=== PATIENT | female | born 1940 | race Caucasian/White ===

== ENCOUNTER → 2019-04-21 13:51 | Outpatient (BNVA) | payer MEDICARE, OTHER, SELFPAY | PROVIDERS: Family Provider Nurse Practitioner Family; PCP Nurse Practitioner Family; Visit Provider Nurse Practitioner Family | DX: A09 Infectious gastroenteritis and colitis, unspecified (principal) | CPT/HCPCS: 87505 ==

== ENCOUNTER → 2019-12-16 10:51 | Outpatient (BNVA) | payer MEDICARE, OTHER, SELFPAY | PROVIDERS: Family Provider Nurse Practitioner Family; PCP Nurse Practitioner Family; Visit Provider Specialist | DX: M25.562 Pain in left knee (principal); M25.569 Pain in unspecified knee | CPT/HCPCS: 73560; 73565; 97760; L1812 ==

== ENCOUNTER 2019-12-16 14:35 | Outpatient (CLI) | payer MEDICARE, OTHER, SELFPAY | END 2019-12-16 14:36 | disposition home or self-care (01) | LOC: SPT 14:41 | PROVIDERS: Family Provider Nurse Practitioner Family; PCP Nurse Practitioner Family; Visit Provider Specialist | DX: M25.569 Pain in unspecified knee (principal) | CPT/HCPCS: 97760; L1812 ==

== ENCOUNTER 2019-12-28 08:39 | Outpatient (CLI) | payer MEDICARE, OTHER, SELFPAY ==
--- NOTE | 2019-12-28 08:45 | MR_ITS ---
WS: [id number] MRI LEFT KNEE HISTORY: S83.249A Other tear of medial meniscus, medial knee pain. COMPARISON: None available. Anterior cruciate ligament: Increased signal in the distal ACL. Partial tear suspected. Orientation o f the fibers is normal. Posterior cruciate ligament: Intact. Medial collateral ligament: Increased T2 signal surrounding the MCL. No tear identified. No retractio n of the ligament. Posterior lateral corner structures: Intact. Medial menisci: Mild fraying along the surfaces of the posterior horn and intrasubstance degeneration . No tear identified. Lateral meniscus: Intact. Normal signal, size and shape. Extensor mechanism: Distal quadriceps tendon and patellar tendons are intact. Fluid and soft tissue: Small suprapatellar joint effusion. Small Chacon's cyst measures 3 cm in length . Osseous and articular structures: Patellofemoral compartment: Moderate chondromalacia of the patella. Essentially complete loss of cart ilage over the medial facet. No marrow edema or fracture. Medial compartment: Moderate narrowing of the medial compartment. Marked thinning and loss of the car tilage with numerous fissures. There is a small amount of edema in the medial femoral condyle closest to the MCL. Complete loss of cartilage with underlying subchondral edema involving the medial femora l condyle adjacent to the MCL. Lateral compartment: Mild narrowing of the lateral compartment with thinning and fissuring of the car tilage. No marrow edema. MR/MR knee LT wo con* [id number] IMPRESSION: 1. Mild MCL sprain with a small amount of edema in the adjacent medial femoral condyle. 2. 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 3. Suspect partial tear in the distal ACL. 4. Small Chacon's cyst and small joint effusion.
== END 2019-12-28 08:40 | disposition home or self-care (01) ==
LOC: RADSHAW 08:44
PROVIDERS: PCP Nurse Practitioner Family; Visit Provider Specialist
DX: S83.249A Other tear of medial meniscus, current injury, unspecified knee, initial encounter (principal); S83.412A Sprain of medial collateral ligament of left knee, initial encounter; X58.XXXA Exposure to other specified factors, initial encounter; R60.0 Localized edema; M22.42 Chondromalacia patellae, left knee; M71.22 Synovial cyst of popliteal space [Baker], left knee; M25.462 Effusion, left knee
CPT/HCPCS: 73721

== ENCOUNTER → 2020-02-02 11:45 | Outpatient (BNVA) | payer MEDICARE, OTHER, SELFPAY | PROVIDERS: PCP Nurse Practitioner Family; Visit Provider Internal Medicine Cardiovascular Disease | DX: E78.2 Mixed hyperlipidemia (principal); I25.10 Atherosclerotic heart disease of native coronary artery without angina pectoris; I10 Essential (primary) hypertension; F32.9 Major depressive disorder, single episode, unspecified | CPT/HCPCS: 80053; 80061; 83721; 85025 ==

== ENCOUNTER → 2020-04-22 10:40 | Outpatient (BNVA) | payer MEDICARE, OTHER, SELFPAY | PROVIDERS: PCP Nurse Practitioner Family; Visit Provider Nurse Practitioner Family | DX: Z51.81 Encounter for therapeutic drug level monitoring (principal); E55.9 Vitamin D deficiency, unspecified; J01.90 Acute sinusitis, unspecified | CPT/HCPCS: 80053; 82306; 85007; 85027 ==

== ENCOUNTER → 2020-05-25 11:10 | Outpatient (BNVA) | payer MEDICARE, OTHER, SELFPAY | PROVIDERS: PCP Nurse Practitioner Family; Visit Provider Nurse Practitioner Family | DX: R79.89 Other specified abnormal findings of blood chemistry (principal); R74.8 Abnormal levels of other serum enzymes | CPT/HCPCS: 80076; 85007; 85027 ==

== ENCOUNTER 2020-08-05 07:51 | Outpatient (CLI) | payer MEDICARE, OTHER, SELFPAY ==
[2020-08-05 08:22] VITALS: BMI 32.9
--- NOTE | 2020-08-05 08:22 | ECG_ITS ---
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 Interpretive Statements NAME OF STUDY: LEXISCAN SESTAMIBI STRESS TEST INDICATION: Chest Pain PROCEDURE: At the baseline, the blood pressure was 164/79 mmHg with a heart rate of 66 bpm. The electrocardiogram showed normal sinus rhythm, normal axis with no significant ST-T wave changes. The Lexiscan was infused over a period of 20 seconds. A total of 0.4 milligrams of Lexiscan was infused. The stress phase was continued for a total of 5 minutes. Heart rate at the end of the stress phase was 73 bpm with a blood pressure of 147/69 mmHg. The EKG at the peak infusion revealed sinus rhythm with no significant ST-T wave changes. Isolated PACs noted during infusion. The study was terminated due to protocol completion. Sestamibi was injected 20 seconds after the Lexiscan infusion. Blood pressure at the end of the recovery phase was 152/74 mmHg with a heart rate of 86 beats per minute. CONCLUSION: 1. No significant EKG changes with the LexiScan infusion. 2. No LexiScan induced chest pain or cardiac arrhythmia. 3. Normal blood pressure and heart rate response. 4. Sestamibi/sestamibi perfusion scan pending; see separate report. Electronically Signed On 08-08-2020 17:43:36 CDT by Leah Cleary M.D. [id number]
--- NOTE | 2020-08-05 08:22 | NMCV_ITS ---
NM lisa perf SPECT r/s* [id number] Donya Carpio Age: 79 Gender: F : 1940 Exam Date: 08/05/2020 08:22 Ordering Phys: Leah Cleary MD ([email or web address]) Technologist: LORI Guillen Exam Location: [facility] Indications: CHEST PAIN STRESS TEST Please see separate stress test report in [facility] for full findings IMAGE PROTOCOL Rest/Stress 1 Lexiscan Day Radiopharmaceutical Dose (mCi) Administration Site Administered by Rest: Tc-99m 10.8 IV LORI Whitehead Sestamibi Stress:Tc-99m 32.2 IV LORI Patterson Sestamibi Rest: 05-Aug-2020 60 Discovery 630 Stress: 05-Aug-2020 30 Discovery 630 0.4mg Lexiscan. Images obtained in supine and prone position. SPECT RESULTS Technical Quality: Excellent Raw Data Analysis: Normal Image Corrections: No attenuation or motion correction applied Summed Stress Score: 0 Summed Rest Score: 3 Summed Difference Score: 0 PERFUSION FINDINGS Small size perfusion abnormality of mild severity of mid inferolateral and apical lateral wall on rest images with some improved tracer uptake on stress images. FUNCTIONAL RESULTS (calculated via Gated SPECT) Stress Image LV EF (%): 75 Stress EDV (mL):76 TID: 0.95 Stress ESV (mL):19 FUNCTIONAL FINDINGS: The left ventricle is normal in size. Transient Ischemia Dilatation of 0.95. There is normal left ventricular systolic function. The left ventricular ejection fraction is normal with a value of 75%. There is normal left ventricular wall thickening with no regional wall motion abnormality. Normal end-diastolic and end-systolic volumes. IMPRESSIONS 1. Myocardial perfusion imaging is normal. Attenuation artifact noted in mid to apical inferolateral de anda. 2. Overall left ventricular systolic function is normal without regional wall motion abnormalities. 3. The left ventricular ejection fraction is normal with a value of 75%. 4. No coronary ischemia based on the study. Leah Cleary MD (Electronically Signed) Final Date: 08 Aug 2020 17:41 S
[2020-08-05] MEDS: regadenoson 0.4 Mg/5 ml Syringe IVP (09:50)
[2020-08-05 09:51] VITALS: BP 156/71; PULSE 80
== END 2020-08-05 07:52 | disposition home or self-care (01) ==
LOC: CDL 07:54
PROVIDERS: PCP Nurse Practitioner Family; Visit Provider Internal Medicine Cardiovascular Disease
DX: R07.9 Chest pain, unspecified (principal)
CPT/HCPCS: 78452; 93017; A9500; J2785

== ENCOUNTER 2020-09-09 12:30 | Outpatient (CLI) | payer MEDICARE, OTHER, SELFPAY ==
--- NOTE | 2020-09-09 12:46 | XR_ITS ---
WS: [id number] Chest 2 views, 09/09/2020 Clinical Data: R06.02 - Shortness of breath Comparison: Portable chest, 12/14/2018. Findings: No nodules, masses or effusions are seen. The heart is normal. The pulmonary vascularity is not increased. No pneumonia or pneumothorax is seen. The aortic arch and descending aorta show calci fication and tortuosity. There is a dextroscoliosis of the thoracic spine. XR/XR chest 2V* [id number] Impression: Atherosclerosis.
== END 2020-09-09 12:31 | disposition home or self-care (01) ==
PROVIDERS: PCP Nurse Practitioner Family; Visit Provider Internal Medicine Cardiovascular Disease
DX: R06.02 Shortness of breath (principal); I70.90 Unspecified atherosclerosis
CPT/HCPCS: 71046

== ENCOUNTER 2020-09-26 13:57 | Outpatient (CLI) | payer MEDICARE, OTHER, SELFPAY ==
--- NOTE | 2020-09-26 14:41 | PFTS_ITS ---
Date of Study:09/26/20 Date of Dictation: MECHANICS: Prebronchodilator forced vital capacity (FVC) is normal. . Prebronchodilator forced expiratory volume in one second (FEV1) is normal. . FEV1/FVC is normal. Postbronchodilator study not performed FLOW VOLUME LOOP: normal. LUNG VOLUMES: Total lung capacity (TLC) is mildly reduced. Residual volume (RV) is mildly reduced 66% DIFFUSING CAPACITY FOR CARBON MONOXIDE: Mildly reduced to 61% and normalized after adjustment to ventilation. INTERPRETATION: The Prebronchodilator spirometry is normal. Lung volumes show mild restriction. There is mild gas transfer defect normalized after ventilation adjustment. Correlate clinically. MTDD
== END 2020-09-26 13:58 | disposition home or self-care (01) ==
LOC: RT 13:59
PROVIDERS: PCP Nurse Practitioner Family; Visit Provider Internal Medicine Cardiovascular Disease
DX: J44.9 Chronic obstructive pulmonary disease, unspecified (principal)
CPT/HCPCS: 94010; 94618; 94726; 94729

== ENCOUNTER → 2020-11-08 10:43 | Outpatient (BNVA) | payer MEDICARE, OTHER, SELFPAY | PROVIDERS: PCP Nurse Practitioner Family; Visit Provider Nurse Practitioner Family | DX: Z01.812 Encounter for preprocedural laboratory examination (principal); J44.9 Chronic obstructive pulmonary disease, unspecified; R06.02 Shortness of breath; M25.50 Pain in unspecified joint; Z20.822 Contact with and (suspected) exposure to COVID-19; M25.542 Pain in joints of left hand; M25.541 Pain in joints of right hand | CPT/HCPCS: 80048; 85025; 85610; 86038; 86431; 87635 ==

== ENCOUNTER 2020-11-14 09:07 | Day surgery (SDC) | payer MEDICARE, OTHER, SELFPAY ==
[2020-11-14] VITALS (50 sets, daily range): BP systolic 92–175; BP diastolic 49–99; PULSE 63–77; RESP 13–24; TEMP 36.3–36.7; O2SAT 88–97; BMI 32.1; BMI 32.9
--- NOTE | 2020-11-14 07:30 | XACV_ITS ---
Ht: 157 cm Wt: 80 kg BSA: 1.90 m2 Gender: Female : 1940 Any Known Allergies: Other Exam Priority: Routine Indication(s): - Angina Procedure(s): Procedure Description: Diagnostic procedure Procedure Description: PCI procedure Procedure Description: Drug Eluting Coronary Stent Procedure Description: Coronary Angiography Diagnostic Cath Status: Elective Diagnostic Findings * Left Main has no disease. * Circumflex has no disease. * Right Coronary Artery has no disease. * Proximal Left Anterior Descending to Mid Left Anterior Descending: significant 80% stenosis, SOM: 3 flow. * 1st Diagonal: significant 80% stenosis, SOM: 3 flow. * Coronary angiography shows right dominance. PCI Status: Elective Interventional Findings * Proximal Left Anterior Descending to Mid Left Anterior Descendin% stenosis treated with a AB TREK 2.50X12 RX BALLOON, MDT Jaxson JOSETTE 3.5X15 WESLEY, and MDT TOSHA EUPHORA RX 3.32Y01BR BALLOON. 0% residual stenosis, SOM: 3 flow. * 1st Diagonal: 80% stenosis treated with a AB MINI TREK 2.00X6 RX BALLOON. 20% residual stenosis, SOM: 3 flow. Conclusions 1. There is significant coronary artery disease with one vessel disease. 2. Proximal Left Anterior Descending to Mid Left Anterior Descending was treated with a Balloon, Drug Eluting Stent, and Balloon. 3. 1st Diagonal was treated with a Balloon. Recommendations * Continue current medical management and risk factor modification. Diagnostic RX Recommendation: PCI w/o planned CABG Pressures Phase:Rest AO : 198 / 67 ( 116 ) @ 9:55:00 AM 97 / 57 ( 75 ) @ 10:02:00 AM 115 / 61 ( 85 ) @ 10:03:00 AM Clinical Evaluation EBL: 5mL-10mL Procedural Details Procedure Consent Obtained. Admit Source: Out Patient. Current Diagnosis : Stable angina. Pre-Procedure Time Out. Identified patient by full name and date of as verbalized by the patient/guarantor. Does the consent match the physician's order: Yes. Accurate & Complete Informed Consent: Yes. Inpatient/Outpatient History & Physical on Chart: Yes. If H&P is completed, is and addenduem needed: No; If yes, is the addendum complete: N/A. Visualize and Verify Site with Patient/Guarantor: N/A. Relevant Radiology Images available: N/A. The risks, benefits, and alternatives of sedation and/or procedure were discussed by physician. The patient agrees to continue. Procedure started. [facility] Clinical Fraility Score: 3: Managing Well. 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 Chest Pain Symptom Assessment: Typical Angina Symptoms. Cardiovascular Instability: No. Correct patient, site and procedure confirmed by cath team. Current diagnosis: New Onset Angina. PERRLA. Strong, equal hand hospital coder bilaterally. Lungs clear x 5 lobes. IV Site on Arrival: 20 gauge in the left anticubital. IV Fluids: 0.9% NaCl at KVO. 0 mL infused prior to shellfish processing laborer. Pre Procedural Pulses: bilateral radial was 3+. Pre Procedural Pulses: bilateral posterior tibial was 3+. Pre Procedural Pulses: bilateral dorsalis pedis was 3+. Oxygen started at 3liters/min via nasal canula. right radial was prepped with chloroprep then draped in the usual sterile fashion. right groin was prepped with chloroprep then draped in the usual sterile fashion. Physician notified. Baseline sample Acquired. HR: 70 BPM. Physician arrived. Physician scrubbed in. Equipment: 5F - Femoral. Equipment: 6F - Femoral. Equipment: 5F - Radial. Equipment: 6F - Radial. Heparinized Saline (2 units/mL), 1000 mL bag. Cardiac Cath Pack. ACIST Manifold Kit Model BT 2000. Immediate Pre-Procedure Time Out. Correct Patient: Yes; Correct Procedure: Yes; Correct Site: Yes; Correct Patient Position: Yes; Correct Supplies: Yes; Dried Flammable Prep: Yes; Blood Products Available: N/A;. Lidocaine 1% infiltrated to the right radial. Arterial access obtained. A Terumo 5 Fr Aquiles Radial Catheter, 110cm was advanced over the wire and used for right coronary angiography. RCA cannulated. Multiple views taken of right coronary artery. Catheter removed over the exchange wire. A TR 5FR Radial TIG 4.0 110cm was advanced over the wire and used for Left coronary angiography. LCS cannulated. Multiple views taken of left coronary artery. Physicain review of films. Inventory is CRD 6FR XB 3 GUIDE. IVNENTORY: Milan wire, Copilot, Endoflator. Catheter removed over the wire. Starting Intervention. 6 russian XB 3 guide catheter was inserted over the wire. Milan guidewire was advanced through the guide catheter to lesion in the prox LAD. Milan wire advanced across the lesion. Angiography performed. Milan guidewire #2 was advanced through the guide catheter to the diaganol as protection for stenting. Heparinized Saline (2 units/mL), 1000 mL bag. Inflation number : 1 A AB TREK 2.50X12 RX BALLOON was prepped and advanced across the Prox LAD , then inflated to 20 HAMLET for 0:14 seconds. Balloon out. Inflation Number : 2 A ELMER Puri JOSETTE 3.5X15 WESLEY -Lot Number# [id number] was prepped and advanced across the Prox LAD. The stent was deployed at 14 HAMLET for 0:23 seconds. Exp: 04-05-2022. Angiography performed. Stent balloon out over wire. Diagonal wire removed. Angiography performed. Inflation number : 3 A ELMER GIVENS EUPHORA RX [id number] BALLOON was prepped and advanced across the Prox LAD , then inflated to 16 HAMLET for 0:13 seconds. Balloon out. Milan wire pulled back from LAD and advanced throught the stent struts and down the Diagonal. Inflation number : 1 A AB MINI TREK 2.00X6 RX BALLOON was prepped and advanced across the 1st Diag , then inflated to 16 HAMLET for 0:13 seconds. Inflation number: 2 The AB MINI TREK 2.00X6 RX BALLOON was reinflated across the 1st Diag, to 16 HAMLET for 0:07 seconds. Angiography performed. Balloon out. Wire out. Angiography performed. Physician review of films. Physician scrubbed out. A TR Band was successful obtaining hemostatsis at the Right Radial artery insertion site. TR band placed. Hemostasis obtained. Post Procedure: Pulses reassessed and unchanged. PERRLA. Strong, equal hand hospital coder bilaterally. No VTE prophylaxis required. Medication's Wasted: Lidocaine 1% = 18 ml. Medication's Wasted: Nitro = 49.8 mg. Medication's Wasted: Heparin = 3000 units. Total IV fluids: 45.1 mL. Fluoro: 13:00. Contrast type used: Omnipaque 300 mgI/mL, 500 mL bottle. Omnipaque 249 ml. PCI Indication: New Onset Angina. Post-op diagnosis: Obstuctive CAD; Single Vessel LAD severe stenosis. Complications: None. Estimated blood loss: 5mL-10mL. Procedure completed. Patient transferred by bed to 1st floor. Access Site Site: Right Radial artery Sheath Size: 5 Fr Hemostasis Method: TR Band Hemostasis Success: Successful Procedure Medications Start: 10:43 AM Stop: 10:43 AM Medication: Versed Amount: 1 mg Route: I.V. Start: 10:43 AM Stop: 10:43 AM Medication: Fentanyl Amount: 50 mcg Route: I.V. Start: 10:44 AM Stop: 10:44 AM Medication: Versed Amount: 1 mg Route: I.V. Start: 10:45 AM Stop: 10:45 AM Medication: Nitrogylcerin Amount: 200 mcg Route: I.A. Start: 10:46 AM Stop: 10:46 AM Medication: Heparin Amount: 5000 units Route: I.V. Start: 10:53 AM Stop: 10:53 AM Medication: Heparin Amount: 3000 units Route: I.V. Start: 10:55 AM Stop: 10:55 AM Medication: Versed Amount: 1 mg Route: I.V. Start: 10:55 AM Stop: 10:55 AM Medication: Fentanyl Amount: 25 mcg Route: I.V. Start: 11:13 AM Stop: 11:13 AM Medication: Versed Amount: 1 mg Route: I.V. Start: 11:13 AM Stop: 11:13 AM Medication: Fentanyl Amount: 25 mcg Route: I.V. I, the attending physician, have reviewed and verified all procedure medications. Yes, all medications given per verbal order History/Risk Factors Hypertension: Yes Dyslipidemia: Yes Peripheral Arterial Disease (PAD): No Myocardial Infarction (AZ): No Obesity: No Renal Disease: No Tobacco Use: Never Prior Interventions PCI: Yes CABG: No Valve Surgery: No Date of PCI: 11/13/2018 Report Signatures Finalized by Rober Hernandez MD on 11/24/2020 07:54 PM
[2020-11-14] MEDS: diphenhydrAMINE 50 mg Capsule PO (10:14)
--- NOTE | 2020-11-14 10:27 | P.HP_ITS ---
Same Day Surgery H&P Indication for Procedure/HPI DATE OF PROCEDURE: November 14, 2020 CHIEF COMPLAINT/INDICATIONFOR SURGICAL PROCEDURE: Worsening of chest pain along with shortness of breath despite of optimization of medicine. PREOP DIAGNOSIS: Worsening of angina despite of optimization of medicine PLANNED PROCEDRUE: Operation Date: 11/14/20 08:30 Proposed Procedures p Cardiac Catheterization 24371 R07.89(Left) - Rober Hernandez MD 80-year-old female past medical history significant drug-eluting stent to RCA in 2019 who has been following up with her primary business development manager Dr. Cleary, for the last few months patient has been struggling with shortness of breath and chest pain upon exertion despite of optimization of medicine. Stress test was performed which did not show significant ischemia therefore left heart cath was deferred since patient continues to worse and because of the fact pulmonary test did not show significant etiology Dr. Rodriguez suggested that left heart cath/PCI if indicated may need to be performed. I have detailed discussion with the patient and the family by bedside I have explained them all risk benefit and alternative for the procedure. She understood that there is a 2% risk of major complications such as stroke major bleed CABG vascular injury and 6% of minor complication like hematoma bruising infection pseudoaneurysm. They would like to proceed with it. Medications/Allergies* Home Medications Medication Instructions Recorded Confirmed Type aspirin 81 mg tablet,delayed 81 mg PO DAILY tab 04/06/19 11/14/20 History release albuterol sulfate 1 inh INHALATION QID PRN 11/14/20 11/14/20 History Allergies/Adverse Reactions Allergy/AdvReac Type Severity Reaction Status Date / Time atorvastatin [From Lipitor] Allergy pain Verified 11/08/20 10:57 Penicillins Allergy hives Verified 11/08/20 10:57 Sulfa (Sulfonamide Allergy rash Verified 11/08/20 10:57 Antibiotics) Current Medications: Generic Name Dose Route Start Last Admin Trade Name Freq PRN Reason Stop Dose Admin Sodium Chloride 1,000 mls @ 50 mls/hr 11/14/20 07:30 11/14/20 10:14 Sodium Chloride 0.9% IV 11/15/20 03:29 Not Given .Q20H ONE Pertinent History/Comorbid Conditions* Medical History (Updated 07/24/20 @ 06:42 by Leah Cleary MD) CAD (coronary artery disease) COPD (chronic obstructive pulmonary disease) Depression Hyperlipidemia Hypertension Mucopurulent chronic bronchitis Surgical History (Updated 04/06/19 @ 10:58 by SIVAKUMAR Anderson) H/O hysterectomy with oophorectomy History of appendectomy History of hip replacement left Stented coronary artery 11/17 Social History Smoking and tobacco status: never smoked Second hand smoke exposure: Yes Pertinent Exam Findings alert, oriented x 3 and clear to auscultation bilaterally Conscious Sedation Assessment AIRWAY EVAL/ANESTHESIA PLAN: ASA II and Risks, benefits & alternatives of sedation and/or procedure discussed Recommendations Surgery/Procedure today Coding Level of Care Code Acute 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
--- NOTE | 2020-11-14 11:59 | PC.NURSE ---
Admit Note Patient admitted to [CSU] from [pathology lab technician] via [wheel chair]. Covering service notified. Patient presents with [TR band]. Orders reviewed & will continue to monitor. Patient and/or sales representative girls' apparel oriented to environment, equipment, and informed of the following as found in the admission booklet: patient rights & responsibilities, visitor policy, hand and respiratory hygiene practice. Other education includes: [TR band and its removal]. Patient and/or sales representative girls' apparel [receptive to teaching].
[2020-11-14] MEDS: citalopram 20 mg Tablet PO (14:24)
[2020-11-14] MEDS: pantoprazole DR 40 mg Tablet PO (18:37)
[2020-11-14] MEDS: gemfibrozil 600 mg Tablet PO (18:37)
--- NOTE | 2020-11-14 20:40 | PC.NURSE ---
TR band removed from right wrist at 2029. Dressing placed. No oozing or hematoma noted. Radial pulse present. VSS. Skin color and temperature WNL. Patient educated on post-cath activity restrictions and care and verbalized understanding.
[2020-11-15] VITALS (8 sets, daily range): BP systolic 133–161; BP diastolic 70–107; PULSE 70–75; RESP 12–23; TEMP 36.6–37.4; O2SAT 92–94
--- NOTE | 2020-11-15 05:39 | PC.NURSE ---
Shift Note Frequent safety and comfort rounds continue. Orders and/or nursing care completed as indicated. Patient monitored for response to intervention and treatment(s). Education provided includes post-cath care and restrictions. Patient and/or administrative representative verbalized understanding. Will continue to monitor.
--- NOTE | 2020-11-15 05:42 | PC.NURSE ---
Patient removed from 2 L NC and placed on room air. Patient's oxygen saturation is currently 90 percent. Patient has continuous pulse ox monitor on. Will continue to monitor.
[2020-11-15] MEDS: gemfibrozil 600 mg Tablet PO (09:07)
[2020-11-15] MEDS: aspirin 81 mg EC Tablet PO (09:07)
[2020-11-15] MEDS: clopidogrel 75 mg Tablet PO (09:07)
[2020-11-15] MEDS: citalopram 20 mg Tablet PO (09:08)
[2020-11-15] MEDS: amlodipine 5 mg Tablet 2.5 MG PO (09:08)
[2020-11-15] MEDS: pantoprazole DR 40 mg Tablet PO (09:08)
--- NOTE | 2020-11-15 09:32 | PC.CHAP ---
Pastoral Care Encounter/Spiritual Assessment Type of Contact [] Declined financial services sales representative visit [] Patient/Family/Request visit [] Outpatient visit [] Follow-up visit [] Physician referral [] Code/Alert [x] Routine visit [] Staff referral [] Actively dying [] Patient sleeping [] Family support [] [] Out of room [] Palliative care [] [] Receiving care in room [] Pre-surgical visit [] Trauma [] Long length of stay [] ICU visit [] Other: Relational/Emotional Strength [] Patient feels connected with others/family/visitors/staff [] Distress [] Loneliness/isolation [] Abandonment Spirituality of Patient [x] Person of Teri [] Attends Catholic of their Teri [] Believes in Prayer [] Reads Bible or Confucianist materials [] There are Spiritual issues to be addressed Health Service Worker Interventions [x] Prayer [x] Active listening [x] Non-anxious presence [x] Spiritual/emotional support [] Crisis/trauma care [] Spiritual counseling [] Bereavement support [] Provided bereavement packet [] Provided Bible/devotional materials [] Provided toy/stuffed animal, coloring book to patient or family member [] Provided Communion [] Anointing/Crescent [] Salvation [x] Completed spiritual assessment [] Other: Impact on Illness or Injury [] Angry [] Fearful [] Anxious [] Often cries [] Exhaustion [] Unable to work [] Unable to attend jain [] Unable to walk/stand [] Unable to read [] Unable to drive [] Unable to eat/drink [] Unable to sleep [] Unable to be with family [] Patient intubated [] Other: Summary patient is so happy with improvement... hoping to go home very soon Time spent with patient 10 min
--- NOTE | 2020-11-15 10:34 | PM.DCS ---
Discharge Providers Date of Discharge: November 15, 2020 Attending Provider at Discharge: Rober Hernandez MD Primary Care Provider: SIVAKUMAR Holloway Reason for Visit Reason for Visit: [facility] Hospital Course Hospital Course 80-year-old female past medical history significant for hypertension hyperlipidemia coronary artery disease status post stent to RCA in 2017 for worsening of shortness of breath and anginal-like symptoms underwent left heart cath she was noted to have significant proximal to mid LAD more than 80% stenosis. It was treated with balloon angioplasty followed by drug-eluting stent. Jailed diagonal was also ballooned through the stent struts. Excellent angiographic result with SOM-3 flow was achieved. Patient post PCI course was uncomplicated. She was observed overnight. Vitals remained stable. Labs this morning are within normal limits. She is feeling much better denies any complaint. Right wrist wound looks good. She will be discharged home. She is instructed to follow-up with Ms. Margareth Escobar cardiology nurse practitioner in [address] 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 Physical Exam Narrative: EXAM NARRATIVE: GENERAL: Patient is alert, awake and oriented x3. NECK: No jugular vein distension. HEENT: No cyanosis. No icterus. No pallor. HEART: Regular S1 and S2. No murmur, rub or gallop. LUNGS: Clear to auscultate bilaterally. ABDOMEN: Soft, nontender and nondistended. Positive bowel sounds. No guarding, rebound or tenderness. CENTRAL NERVOUS SYSTEM: Grossly nonfocal. EXTREMITIES: Lower extremities without edema bilaterally. Right wrist wound healing nicely. 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 Routin e Exams 11/14/20 07:30 Taken Vitals: Last Vital Signs Temp 98.2 F 11/15/20 07:42 Pulse 73 11/15/20 07:42 Resp 16 11/15/20 07:42 BP 133/73 11/15/20 07:42 Pulse Ox 93 11/15/20 07:42 Discharge Plan Discharge Patient Disposition: Home Condition: Stable Prescriptions: Continued aspirin [Adult Low Dose Aspirin] 81 mg tablet,delayed release (DR/EC) 81 mg PO QAM RF: 0 (DME) HINGED KNEE BRACE See Rx Instructions .Route .MEDSUPPLY Qty: 1 RF: 0 isosorbide mononitrate 60 mg tablet extended release 24 hr 30 mg PO BID Qty: 90 RF: 2 nitroglycerin 0.4 mg tablet, sublingual 0.4 mg SUBLINGUAL Q5M PRN (Reason: chest pain) Qty: 30 RF: 3 gemfibrozil 600 mg tablet 600 mg PO BID Qty: 180 RF: 1 albuterol sulfate 90 mcg/actuation HFA aerosol inhaler 1 inh inhalation QID PRN (Reason: Shortness Of Breath) RF: 0 amlodipine 2.5 mg tablet 2.5 mg PO QAM RF: 0 clopidogrel 75 mg tablet 75 mg PO QAM RF: 0 citalopram 20 mg tablet 20 mg PO QAM RF: 0 Vitamin C 500 mg Tablet 500 mg PO QAM RF: 0 pantoprazole 40 mg tablet,delayed release (DR/EC) 40 mg PO BID RF: 0 hydrochlorothiazide 25 mg tablet 25 mg PO QAM RF: 0 cholecalciferol (vitamin D3) 25 mcg (1,000 unit) capsule 1,000 unit PO QAM RF: 0 Discharge Orders: Discharge Order (Routine); Ordered 11/15/20 Ordered By: Rober Hernandez Referrals: Margareth Escobar FNP [Nurse Practitioner] - 1 week (Please follow-up Margareth Escobar on at 10:45A.M. If you have any questions or need to reschedule. Please call ) Leah Cleary MD [Physician] - 6 Weeks (Please follow-up with Dr. Cleary on January 13 at 11:30A.M. If you have any questions or need to reschedule. Please call ) Discharge Diet: Cardiac Discharge Activity: Increase activity as tolerated Patient Instructions: Left Heart Catheterization (DC), Coronary Angioplasty (DC), Post Angiogram Home Care Instructions Activity Restrictions/Additional Instructions: Follow-up with Margareth Escobar cardiology nurse practitioner in 7 days, follow-up with Dr. Cleary in 4 to 6 weeks. Discharge Attestations Time Spent in Discharge Care*: less than 30 min Specific Discharge Activities: educating patient Quality Metrics Clinical Quality Measures During this hospital stay, did patient experience: None Coding Level of Care Code Established Pt Acute Chg FW DC note Patient Type Established History Detailed Exam Detailed Medical Decision Making Moderate Complexity
[2020-11-15] MEDS: acetaminophen 325 mg Tablet 650 MG PO (16:35)
--- NOTE | 2020-11-15 16:53 | PC.NURSE ---
Discharge Note Patient discharged to home via private vehicle accompanied by Daughter. Discharge instructions reviewed with patient and/or employee representative. Mobile pharmacy medications and/or prescriptions provided. Belongings/home medications returned.
== END 2020-11-15 16:55 | disposition home or self-care (01) ==
LOC: CCL 09:13 → CSU 11-15 09:51
PROVIDERS: PCP Nurse Practitioner Family; Visit Provider Internal Medicine Cardiovascular Disease
DX: I25.10 Atherosclerotic heart disease of native coronary artery without angina pectoris (principal); R07.89 Other chest pain; Z95.5 Presence of coronary angioplasty implant and graft; J44.9 Chronic obstructive pulmonary disease, unspecified; F32.9 Major depressive disorder, single episode, unspecified; E78.5 Hyperlipidemia, unspecified; I10 Essential (primary) hypertension
CPT/HCPCS: 36415; 93454; C1725; C1769; C1874; C1887; C1894; C9600; J1644; J2250; J3010; J3490; J7030; Q0163; Q9967

== ENCOUNTER → 2020-11-22 11:35 | Outpatient (BNVA) | payer MEDICARE, OTHER, SELFPAY | PROVIDERS: PCP Nurse Practitioner Family; Visit Provider Nurse Practitioner Family | DX: Z09 Encounter for follow-up examination after completed treatment for conditions other than malignant neoplasm (principal); I25.10 Atherosclerotic heart disease of native coronary artery without angina pectoris | CPT/HCPCS: 80048 ==

== ENCOUNTER → 2020-12-01 10:28 | Outpatient (BNVA) | payer MEDICARE, OTHER, SELFPAY | PROVIDERS: PCP Nurse Practitioner Family; Visit Provider Nurse Practitioner Family | DX: L29.9 Pruritus, unspecified (principal); I25.10 Atherosclerotic heart disease of native coronary artery without angina pectoris; J44.9 Chronic obstructive pulmonary disease, unspecified | CPT/HCPCS: 80076 ==

== ENCOUNTER 2021-01-15 16:51 | Observation (INO) | payer MEDICARE, OTHER, SELFPAY ==
[2021-01-15] VITALS (9 sets, daily range): BP systolic 129–184; BP diastolic 63–118; PULSE 60–117; RESP 14–21; TEMP 36.7–36.8; O2SAT 92–98; BMI 32.3
--- NOTE | 2021-01-15 18:13 | XRR_ITS ---
PROCEDURE INFORMATION: Exam: XR Chest Exam date and time: 01/15/2021 6:13 PM Age: 80 years old Clinical indication: Pain; Chest pressure; Additional info: Cp TECHNIQUE: Imaging protocol: XR of the chest. Views: 1 view. Total images: 1 COMPARISON: CR XR chest 2V* [id number] 09/09/2020 1:08 PM FINDINGS: Lungs: No visible active interstitial or alveolar airspace disease. Pleural spaces: No pleural effusion. No pneumothorax. Heart/Mediastinum: Cardiac structures and configuration with arteriosclerosis. Tortuous thoracic aorta which can be seen in hypertensive cardiovascular disease. Bones/joints: Mild scoliotic curvature. Advanced primary osteoarthritis of the shoulders. Other findings: Obesity. XR/XR chest 1V portable [id number] IMPRESSION: Nonacute. Radiation Dose CTDIVOL = (mGy): DLP = (mGy-cm)
--- NOTE | 2021-01-15 18:13 | ECG_ITS ---
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 Measurements Intervals [place] Rate: 61 P: 50 [place]: 157 QRS: 11 QRSD: 85 T: 45 QT: 454 QTc: 461 Interpretive Statements SINUS RHYTHM WITH OCCASIONAL SUPRAVENTRICULAR PREMATURE COMPLEXES LOW QRS VOLTAGE IN PRECORDIAL LEADS [QRS DEFLECTION < 1.0 mV IN CHEST LEADS] POSSIBLE ANTERIOR MYOCARDIAL INFARCTION , PROBABLY OLD [30 ms Q WAVE IN V3/V4, OR R < 0.2 mV IN V4] No previous ECG available for comparison Electronically Signed On 01-15-2021 20:58:43 CDT by Leah Cleary M.D. [id number]
--- NOTE | 2021-01-15 18:13 | CTR_ITS ---
PROCEDURE INFORMATION: Exam: CT Head Without Contrast Exam date and time: 01/15/2021 6:13 PM Age: 80 years old Clinical indication: Visual disturbance; Patient HX: C/O blurred vision and weakness; Additional info: CVA TECHNIQUE: Imaging protocol: Computed tomography of the head without contrast. Total images: 184 Radiation optimization: All CT scans at this facility use at least one of these dose optimization techniques: automated exposure control; mA and/or kV adjustment per patient size (includes targeted exams where dose is matched to clinical indication); or iterative reconstruction. COMPARISON: CR XR knees AP WB w LT lmt ORTH 12/16/2019 10:56 AM RADIATION DOSE METRICS: Total DLP (mGy-cm): 720.15 FINDINGS: Brain: No evidence of active or acute intracranial pathologic process, hemorrhage, or trauma. Mild small vessel ischemic disease with senile periventricular leukomalacia. No hyperdense MCA or insular ribbon sign. Cerebral arteriosclerosis. No mass effect. No midline shift. Atrophic changes not inconsistent with the patient's chronological age. Cerebral ventricles: No ventriculomegaly. Paranasal sinuses: Tiny air-fluid level sphenoid sinus. No other evidence of active paranasal sinus disease. Mastoid air cells: Visualized mastoid air cells are well aerated. Bones/joints: Unremarkable. No acute fracture. Soft tissues: Unremarkable. CT/CT head wo con* [id number] IMPRESSION: 1. No evidence of active or acute intracranial pathologic process, hemorrhage, or trauma. 2. Tiny air-fluid level sphenoid sinus. No other evidence of active paranasal sinus disease. Radiation Dose CTDIVOL = (mGy): DLP = 720.15 (mGy-cm)
--- NOTE | 2021-01-15 18:36 | W.ED.GENADLT ---
Documented by User: Emmanuel Griffin MD 01/15/21 21:45 HPI - General Adult General: Chief complaint: Eye Problems Stated complaint: BLURRY VISION AND CANT WALK Time Seen by Provider: 01/15/21 17:56 Source: patient Mode of arrival: ambulatory Limitations: no limitations History of Present Illness: HPI narrative: 80-year-old female states that starting earlier this morning around 8 or 9 she had woke up with blurry vision. States that initially was quite blurry and has improved but still having some blurry vision. She states the vision is blurry in bilateral eyes. States she is also had some ataxia and difficulty walking. No focal weakness. No slurred speech. Associated symptoms: Deny chest pain, dyspnea, nausea, rash or vomiting Review of Systems Const: Denies: fever(s), chills, body aches or change in appetite Eyes: Reports: change in vision and blurry vision ENMT: Denies: throat pain or dental pain Card: Denies: chest pain Resp: Denies: dyspnea GI: Denies: abdominal pain, nausea, vomiting or diarrhea : Denies: dysuria Musc: Denies: neck pain or back pain Skin/Breast: Denies: rash Neuro: Reports: difficulty walking Psych: Denies: depression Ed/Lymph: Denies: easy bruising All/Imm: Denies: urticaria PFSH ED PFSH: Medical History CAD (coronary artery disease) COPD (chronic obstructive pulmonary disease) Depression Hyperlipidemia Hypertension Mucopurulent chronic bronchitis Primary osteoarthritis of left knee Surgical History H/O hysterectomy with oophorectomy History of appendectomy History of hip replacement left Stented coronary artery 11/17 Social History Smoking and tobacco status: never smoked Second hand smoke exposure: Yes Physical Exam Const: COMMON NORMALS: no acute distress, patient oriented x3 and healthy appearing HENMT: COMMON NORMALS: normocephalic and atraumatic HEAD & SCALP: normocephalic and atraumatic Eye: COMMON NORMALS: Equal, round and reactive pupils present and EOMs intact bilaterally PUPIL: Yes Equal, round and reactive pupils present Neck/C-Spine: COMMON NORMALS: full ROM and supple Chest: COMMONS NORMALS: normal inspection of the chest and normal palpation of entire chest wall Resp: COMMON NORMALS: normal respiratory effort, No retractions, No use of accessory muscles and clear to auscultation bilaterally AUSCULTATION: clear to auscultation bilaterally Cardio: COMMON NORMALS: regular rate, regular rhythm and No murmurs present (Cardio) RATE: regular rate RHYTHM: regular rhythm GI: COMMON NORMALS: Normal to inspection, nondistended, normoactive bowel sounds present, Soft to palpation, non-tender and no masses PALPATION: Yes Soft to palpation Extremity: COMMON NORMALS: normal to inspection and full ROM Neuro: COMMON NORMALS: patient oriented x3, moves all extremities and no focal motor deficits Psych: COMMON NORMALS: mental status grossly normal, Normal thought process present and cooperative THOUGHT PROCESS: Normal thought process present Skin: COMMON NORMALS: no rashes or lesions noted and no wounds GENERAL SKIN EXAM: no rashes or lesions noted Course Vital Signs: Vital signs: Vital Signs Temperature 98.2 F 01/15/21 17:52 Pulse Rate 66 01/15/21 21:33 Respiratory Rate 20 H 01/15/21 21:33 Blood Pressure 184/118 01/15/21 21:33 Pulse Oximetry 92 01/15/21 21:33 MDM - General Adult MDM Narrative: Medical decision making narrative: Patient presents here with possible CVA. She does have some blurred vision and ataxia. Symptoms started this morning she is a TPA candidate. She has a normal head CT here. Spoke to hospitalist will admit for observation. Lab Data: Labs: Lab Results 01/15/21 01/15/21 01/15/21 18:29 18:29 18:29 WBC 5.9 10^3/uL 10^3/ uL (4.0-10.0) RBC 4.10 10^6/uL 10^6 /uL (4.1-5.3) Hgb 12.1 g/dL g/dL (11.5-15.3) Hct 37.9 % % (37.0-47.0) MCV 92.4 fl fl (81-99) MCH 29.5 pg pg (28.0-34.0) MCHC 31.9 g/dL g/dL (30.0-36.0) RDW 14.3 % % (12.1-15.1) Plt Count 355 10^3/cmm 10^3 /cmm (130-400) MPV 11.1 fL H fL (7.4-10.4) Neut % (Auto) 49.1 % % Lymph % (Auto) 36.0 % % [place] % (Auto) 9.3 % % Eos % (Auto) 4.6 % % Baso % (Auto) 0.5 % % Neut # (Auto) 2.89 10^3/uL 10^3 /uL (1.8-7.7) Lymph # (Auto) 2.1 10^3/uL 10^3/ uL (0.8-4.8) [place] # (Auto) 0.6 10^3/uL 10^3/ uL (0.2-0.9) Eos # (Auto) 0.3 10^3/uL 10^3/ uL (0.0-0.8) Baso # (Auto) 0.0 10^3/uL 10^3/ uL (0.0-0.1) Nucleated RBC % (a uto) 0 % % Nucleated RBCs # 0.0 /100WBC /100W BC PT 13.70 SECONDS SEC ONDS (12.1-14.9) INR 1.01 (0.8-1.2) Sodium Cancelled Potassium Cancelled Chloride Cancelled Carbon Dioxide Cancelled Anion Gap Cancelled BUN Cancelled Creatinine Cancelled GFR Calculation Cancelled Glucose Cancelled Calculated Osmolal ity Cancelled Calcium Cancelled Total Bilirubin Cancelled AST Cancelled ALT Cancelled Alkaline Phosphata se Cancelled Troponin T Baselin e Total Protein Cancelled Albumin Cancelled Globulin Cancelled Urine Color Urine Appearance Urine pH Ur Specific Gravit y Urine Protein Urine Glucose (UA) Urine Ketones Urine Blood Urine Nitrate Urine Bilirubin Urine Urobilinogen Ur Leukocyte Shu ase 01/15/21 01/15/21 01/15/21 18:29 19:25 20:10 WBC RBC Hgb Hct MCV MCH MCHC RDW Plt Count MPV Neut % (Auto) Lymph % (Auto) [place] % (Auto) Eos % (Auto) Baso % (Auto) Neut # (Auto) Lymph # (Auto) [place] # (Auto) Eos # (Auto) Baso # (Auto) Nucleated RBC % (a uto) Nucleated RBCs # PT INR Sodium 138 mmol/L mmol/L (136-145) Potassium 3.6 mmol/L mmol/L (3.5-5.1) Chloride 100 mmol/L mmol/L (98-107) Carbon Dioxide 24 mmol/L mmol/L (22-29) Anion Gap 17.6 (5-19) BUN 28 mg/dL H mg/dL (8-23) Creatinine 1.0 mg/dL H mg/dL (0.5-0.9) GFR Calculation Not Reportable Glucose 97 mg/dL mg/dL (65-115) Calculated Osmolal ity 291 mOsm/kg mOsm/ kg (285-295) Calcium 10.2 mg/dL mg/dL (8.5-10.5) Total Bilirubin 0.2 mg/dL mg/dL (0.15-1.2) AST 26 U/L U/L (0-32) ALT 15 U/L U/L (0-33) Alkaline Phosphata se 98 IU/L IU/L (35-105) Troponin T Baselin e 12 ng/L H ng/L (0-10) Total Protein 7.8 g/dL g/dL (6.6-8.7) Albumin 4.3 g/dL g/dL (3.5-5.2) Globulin 3.5 g/dL g/dL (1.3-4.6) Urine Color Yellow (Yellow) Urine Appearance Clear (CLEAR) Urine pH 6 (5-7) Ur Specific Gravit y 1.010 (1.005-1.030) Urine Protein Neg (Negative) Urine Glucose (UA) Norm (Normal) Urine Ketones Negative (Negative) Urine Blood Neg (Negative) Urine Nitrate Negative (Negative) Urine Bilirubin Neg (Negative) Urine Urobilinogen Norm mg/dL mg/dL (Negative) Ur Leukocyte Shu ase Negative (Negative) Imaging Data^: CT Head: Attestation: I personally reviewed and interpreted this imaging study as follows: Radiologist's impression: [address] [address] [address] Scan Report Signed Patient: Donya Carpio Unit #: [id number] : 1940 Age/Sex: 80 / F ADM Date: 01/15/21 Loc: ER Room/Bed: Attending Dr: Ordering Provider/Ordering MD: Emmanuel Griffin MD Date of Service: 01/15/21 Procedure(s): CT head wo con* [id number] Accession Number(s): [id number] Report Number: [id number] PROCEDURE INFORMATION: Exam: CT Head Without Contrast Exam date and time: 01/15/2021 6:13 PM Age: 80 years old Clinical indication: Visual disturbance; Patient HX: C/O blurred vision and weakness; Additional info: CVA TECHNIQUE: Imaging protocol: Computed tomography of the head without contrast. Total images: 184 Radiation optimization: All CT scans at this facility use at least one of these dose optimization techniques: automated exposure control; mA and/or kV adjustment per patient size (includes targeted exams where dose is matched to clinical indication); or iterative reconstruction. COMPARISON: CR XR knees AP WB w LT lmt ORTH 12/16/2019 10:56 AM RADIATION DOSE METRICS: Total DLP (mGy-cm): 720.15 FINDINGS: Brain: No evidence of active or acute intracranial pathologic process, hemorrhage, or trauma. Mild small vessel ischemic disease with senile periventricular leukomalacia. No hyperdense MCA or insular ribbon sign. Cerebral arteriosclerosis. No mass effect. No midline shift. Atrophic changes not inconsistent with the patient's chronological age. Cerebral ventricles: No ventriculomegaly. Paranasal sinuses: Tiny air-fluid level sphenoid sinus. No other evidence of active paranasal sinus disease. Mastoid air cells: Visualized mastoid air cells are well aerated. Bones/joints: Unremarkable. No acute fracture. Soft tissues: Unremarkable. CT/CT head wo con* [id number] IMPRESSION: 1. No evidence of active or acute intracranial pathologic process, hemorrhage, or trauma. 2. Tiny air-fluid level sphenoid sinus. No other evidence of active paranasal sinus disease. Radiation Dose CTDIVOL = (mGy): DLP = 720.15 (mGy-cm) Dictated By: Chi Veronica Signed By: Chi Veronica Signed Date/Time: 01/15/212006 DD/ 12 CXR: Attestation: I personally reviewed and interpreted this imaging study as follows: Radiologist's impression: [facility] [place] [address] XRay Report Signed Patient: Donya Carpio Unit #: [id number] : 1940 Age/Sex: 80 / F ADM Date: 01/15/21 Loc: ER Room/Bed: Attending Dr: Ordering Provider/Ordering MD: Emmanuel Griffin MD Date of Service: 01/15/21 Procedure(s): XR chest 1V portable [id number] Accession Number(s): [id number] Report Number: [id number] PROCEDURE INFORMATION: Exam: XR Chest Exam date and time: 01/15/2021 6:13 PM Age: 80 years old Clinical indication: Pain; Chest pressure; Additional info: Cp TECHNIQUE: Imaging protocol: XR of the chest. Views: 1 view. Total images: 1 COMPARISON: CR XR chest 2V* [id number] 09/09/2020 1:08 PM FINDINGS: Lungs: No visible active interstitial or alveolar airspace disease. Pleural spaces: No pleural effusion. No pneumothorax. Heart/Mediastinum: Cardiac structures and configuration with arteriosclerosis. Tortuous thoracic aorta which can be seen in hypertensive cardiovascular disease. Bones/joints: Mild scoliotic curvature. Advanced primary osteoarthritis of the shoulders. Other findings: Obesity. XR/XR chest 1V portable [id number] IMPRESSION: Nonacute. Radiation Dose CTDIVOL = (mGy): DLP = (mGy-cm) Dictated By: Chi Veronica Signed By: Chi Veronica Signed Date/Time: 01/15/212007 EKG Data^: EKG 1: Attestation: I personally reviewed and interpreted this EKG as follows: EKG interpretation date: 01/15/21 EKG interpretation time: 18:33 Interpretation: nsr hr [address] or t wave abnormalities qrs 85 qtc 458 Computer generated interpretation: Chest X-Ray 01/15/21 18:13 IMPRESSION: Nonacute. Radiation Dose CTDIVOL = (mGy): DLP = (mGy-cm) Head CT 01/15/21 18:13 IMPRESSION: 1. No evidence of active or acute intracranial pathologic process, hemorrhage, or trauma. 2. Tiny air-fluid level sphenoid sinus. No other evidence of active paranasal sinus disease. Radiation Dose CTDIVOL = (mGy): DLP = 720.15 (mGy-cm) EKG 2: Attestation: I personally reviewed and interpreted this EKG as follows: EKG interpretation date: 01/15/21 EKG interpretation time: 20:12 Interpretation: nsr hr [address] or t wave abnormalities qrs 83 qtc 429 Computer generated interpretation: Chest X-Ray 01/15/21 18:13 IMPRESSION: Nonacute. Radiation Dose CTDIVOL = (mGy): DLP = (mGy-cm) Head CT 01/15/21 18:13 IMPRESSION: 1. No evidence of active or acute intracranial pathologic process, hemorrhage, or trauma. 2. Tiny air-fluid level sphenoid sinus. No other evidence of active paranasal sinus disease. 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 Field Specialist for Chg Fwd Exam Comprehensive NIH stroke score NIHSS Level Of Consciousness - 1a: 0 Level Of Consciousness Questions - 1b: Both Correct Level Of Consciousness Commands - 1c: Both Correct Best Gaze - 2: Normal Visual Weeks - 3: No Visual Loss Facial Palsy - 4: Normal Motor Arm Right - 5: No Drift Motor Arm Left - 5: No Drift Motor Leg Right - 6: No Drift Motor Leg Left - 6: No Drift Limb Ataxia - 7: Absent Sensory - 8: Normal Best Language - 9: No Aphasia Dysarthia - 10: Normal Extinction And Inattention - 11: 0 Score Total Score: 0 Documented by User: Jay Tovra MD 01/15/21 21:10 HPI - General Adult General: Chief complaint: Eye Problems Stated complaint: BLURRY VISION AND CANT WALK Time Seen by Provider: 01/15/21 17:56 PFSH ED PFSH: Medical History CAD (coronary artery disease) COPD (chronic obstructive pulmonary disease) Depression Hyperlipidemia Hypertension Mucopurulent chronic bronchitis Primary osteoarthritis of left knee Surgical History H/O hysterectomy with oophorectomy History of appendectomy History of hip replacement left Stented coronary artery 11/17 Social History Smoking and tobacco status: never smoked Second hand smoke exposure: Yes Course Vital Signs: Vital signs: Vital Signs Temperature 98.2 F 01/15/21 17:52 Pulse Rate 66 01/15/21 21:33 Respiratory Rate 20 H 01/15/21 21:33 Blood Pressure 184/118 01/15/21 21:33 Pulse Oximetry 92 01/15/21 21:33 MDM - General Adult Lab Data: Labs: Lab Results 01/15/21 01/15/21 01/15/21 18:29 18:29 18:29 WBC 5.9 10^3/uL 10^3/ uL (4.0-10.0) RBC 4.10 10^6/uL 10^6 /uL (4.1-5.3) Hgb 12.1 g/dL g/dL (11.5-15.3) Hct 37.9 % % (37.0-47.0) MCV 92.4 fl fl (81-99) MCH 29.5 pg pg (28.0-34.0) MCHC 31.9 g/dL g/dL (30.0-36.0) RDW 14.3 % % (12.1-15.1) Plt Count 355 10^3/cmm 10^3 /cmm (130-400) MPV 11.1 fL H fL (7.4-10.4) Neut % (Auto) 49.1 % % Lymph % (Auto) 36.0 % % [place] % (Auto) 9.3 % % Eos % (Auto) 4.6 % % Baso % (Auto) 0.5 % % Neut # (Auto) 2.89 10^3/uL 10^3 /uL (1.8-7.7) Lymph # (Auto) 2.1 10^3/uL 10^3/ uL (0.8-4.8) [place] # (Auto) 0.6 10^3/uL 10^3/ uL (0.2-0.9) Eos # (Auto) 0.3 10^3/uL 10^3/ uL (0.0-0.8) Baso # (Auto) 0.0 10^3/uL 10^3/ uL (0.0-0.1) Nucleated RBC % (a uto) 0 % % Nucleated RBCs # 0.0 /100WBC /100W BC PT 13.70 SECONDS SEC ONDS (12.1-14.9) INR 1.01 (0.8-1.2) Sodium Cancelled Potassium Cancelled Chloride Cancelled Carbon Dioxide Cancelled Anion Gap Cancelled BUN Cancelled Creatinine Cancelled GFR Calculation Cancelled Glucose Cancelled Calculated Osmolal ity Cancelled Calcium Cancelled Total Bilirubin Cancelled AST Cancelled ALT Cancelled Alkaline Phosphata se Cancelled Troponin T Baselin e Total Protein Cancelled Albumin Cancelled Globulin Cancelled Urine Color Urine Appearance Urine pH Ur Specific Gravit y Urine Protein Urine Glucose (UA) Urine Ketones Urine Blood Urine Nitrate Urine Bilirubin Urine Urobilinogen Ur Leukocyte Shu ase 01/15/21 01/15/21 01/15/21 18:29 19:25 20:10 WBC RBC Hgb Hct MCV MCH MCHC RDW Plt Count MPV Neut % (Auto) Lymph % (Auto) [place] % (Auto) Eos % (Auto) Baso % (Auto) Neut # (Auto) Lymph # (Auto) [place] # (Auto) Eos # (Auto) Baso # (Auto) Nucleated RBC % (a uto) Nucleated RBCs # PT INR Sodium 138 mmol/L mmol/L (136-145) Potassium 3.6 mmol/L mmol/L (3.5-5.1) Chloride 100 mmol/L mmol/L (98-107) Carbon Dioxide 24 mmol/L mmol/L (22-29) Anion Gap 17.6 (5-19) BUN 28 mg/dL H mg/dL (8-23) Creatinine 1.0 mg/dL H mg/dL (0.5-0.9) GFR Calculation Not Reportable Glucose 97 mg/dL mg/dL (65-115) Calculated Osmolal ity 291 mOsm/kg mOsm/ kg (285-295) Calcium 10.2 mg/dL mg/dL (8.5-10.5) Total Bilirubin 0.2 mg/dL mg/dL (0.15-1.2) AST 26 U/L U/L (0-32) ALT 15 U/L U/L (0-33) Alkaline Phosphata se 98 IU/L IU/L (35-105) Troponin T Baselin e 12 ng/L H ng/L (0-10) Total Protein 7.8 g/dL g/dL (6.6-8.7) Albumin 4.3 g/dL g/dL (3.5-5.2) Globulin 3.5 g/dL g/dL (1.3-4.6) Urine Color Yellow (Yellow) Urine Appearance Clear (CLEAR) Urine pH 6 (5-7) Ur Specific Gravit y 1.010 (1.005-1.030) Urine Protein Neg (Negative) Urine Glucose (UA) Norm (Normal) Urine Ketones Negative (Negative) Urine Blood Neg (Negative) Urine Nitrate Negative (Negative) Urine Bilirubin Neg (Negative) Urine Urobilinogen Norm mg/dL mg/dL (Negative) Ur Leukocyte Shu ase Negative (Negative) EKG Data^: EKG 1: Computer generated interpretation: Chest X-Ray 01/15/21 18:13 IMPRESSION: Nonacute. Radiation Dose CTDIVOL = (mGy): DLP = (mGy-cm) Head CT 01/15/21 18:13 IMPRESSION: 1. No evidence of active or acute intracranial pathologic process, hemorrhage, or trauma. 2. Tiny air-fluid level sphenoid sinus. No other evidence of active paranasal sinus disease. Radiation Dose CTDIVOL = (mGy): DLP = 720.15 (mGy-cm) EKG 2: Computer generated interpretation: Chest X-Ray 01/15/21 18:13 IMPRESSION: Nonacute. Radiation Dose CTDIVOL = (mGy): DLP = (mGy-cm) Head CT 01/15/21 18:13
[2021-01-15 18:45] LABS: Basophils % 0.5 %; Eosinophils # 0.3 10^3/uL (0.0-0.8); Eosinophils % 4.6 %; Hematocrit 37.9 % (37.0-47.0); Hemoglobin 12.1 g/dL (11.5-15.3); Lymphocytes # 2.1 10^3/uL (0.8-4.8); Mean Corpuscular HGB Conc 31.9 g/dL (30.0-36.0); Mean Corpuscular Hemoglobin 29.5 pg (28.0-34.0); Mean Corpuscular Volume 92.4 fl (81-99); Mean Platelet Volume 11.1 fL (7.4-10.4); Monocytes # 0.6 10^3/uL (0.2-0.9); Monocytes % 9.3 %; Neutrophils # 2.89 10^3/uL (1.8-7.7); Neutrophils % 49.1 %; Nucleated Red Blood Cells % 0 %; Platelet Count 355 10^3/cmm (130-400); Red Cell Distribution Width 14.3 % (12.1-15.1); White Blood Count 5.9 10^3/uL (4.0-10.0)
[2021-01-15 18:51] LABS: INR 1.01 (0.8-1.2)
[2021-01-15 19:03] LABS: Troponin(5th) Baseline 12 ng/L (0-10)
--- NOTE | 2021-01-15 19:07 | PC.NURSE ---
Cardiac monitoring entries not accurate. Would not let nurse exit without entering values.
--- NOTE | 2021-01-15 20:13 | ECG_ITS ---
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 Measurements Intervals [place] Rate: 61 P: 14 OR: 160 QRS: 15 QRSD: 83 T: 44 QT: 427 QTc: 431 Interpretive Statements SINUS RHYTHM LOW QRS VOLTAGE IN PRECORDIAL LEADS [QRS DEFLECTION < 1.0 mV IN CHEST LEADS] Compared to ECG 01/15/2021 18:33:09 Myocardial infarct finding no longer present Electronically Signed On 01-15-2021 21:10:46 CDT by Leah Cleary M.D. [id number]
[2021-01-15 20:18] LABS: Add Urine Microscopic? NO; Charge for UA Resulting for Rev
[2021-01-15 20:31] LABS: Bilirubin Urine Neg (Negative); Blood Urine Neg (Negative); Glucose Urine UA Norm (Normal); Ketones Urine Negative (Negative); Leukocyte Esterase Urine Negative (Negative); Nitrate Urine Negative (Negative); Protein Urine Neg (Negative); Urine Appearance Clear (CLEAR); Urine Color Yellow (Yellow); Urobilinogen Urine Norm (Negative); pH Urine 6 (5-7)
[2021-01-15 20:45] LABS: Alanine Aminotransferase 15 U/L (0-33); Albumin Level 4.3 g/dL (3.5-5.2); Alkaline Phosphatase 98 IU/L (35-105); Anion Gap 17.6 (5-19); Aspartate Amino Transferase 26 U/L (0-32); Blood Urea Nitrogen 28 mg/dL (8-23); Calcium 10.2 mg/dL (8.5-10.5); Carbon Dioxide 24 mmol/L (22-29); Chloride 100 mmol/L (98-107); Globulin 3.5 g/dL (1.3-4.6); Glucose 97 mg/dL (65-115); Osmolality Calculated 291 mOsm/kg (285-295); Potassium 3.6 mmol/L (3.5-5.1); Sodium 138 mmol/L (136-145); Total Bilirubin 0.2 mg/dL (0.15-1.2); Total Protein 7.8 g/dL (6.6-8.7)
--- NOTE | 2021-01-15 21:11 | PC.NURSE ---
Pt. states that he will have to take his grandson home after she is admitted , but he will be staying the night with her. states that if he does not , then the patient may elope.
--- NOTE | 2021-01-15 22:41 | P.HP_ITS ---
Providers/Chief Complaint Admitting Physician: Jay Tovar Primary Care Provider: SIVAKUMAR Holloway Chief Complaint: BLURRY VISION AND CANT WALK History of Present Illness 80-year-old with a past medical history significant for anxiety, depression, hypertension, depression, arthritis, coronary artery disease with recent stent placement, statin intolerance was presented to the hospital with acute onset of blurry vision. Patient stated this started around 9:00 a.m. it was noted in both visual sterling. Attempted to ambulate and felt unsteady as if she was ?Drunk?.Symptoms gradually improved throughout the day. No unilateral weakness. Denies any numbness or tingling. No prior history of stroke.Laboratory workup however showed a WBC of 5.9, hemoglobin 12.1, hematocrit of 37.9 and a platelet count of 355. INR 1.01. Sodium 138, potassium 3.6, chloride 100, bicarb 24, BUN 28 and creatinine 1.0. Troponin T baseline of 12, with a repeat of 13.94. UA negative.Chest x-ray did not show any acute cardiopulmonary.CT head without contrast did not show any evidence of acute intracranial abnormality. Review of Systems General: Reports: 10 or more systems reviewed and unremarkable except in HPI and below Medications/Allergies Home Medications Medication Instructions Recorded Confirmed Last Taken Type aspirin 81 mg tablet,delayed 81 mg PO QAM tab 04/06/19 01/15/21 01/15/21 08:30 History release 80 HINGED KNEE BRACE #1 ea NS 12/16/19 12/01/20 Unknown Rx isosorbide mononitrate 60 mg 30 mg PO BID #90 tab 07/22/20 01/15/21 01/15/21 08:30 Rx tablet,extended release 24 hr 30 nitroglycerin 0.4 mg sublingual 0.4 mg SUBLINGUAL Q5M PRN #30 tab 07/22/20 01/15/21 Unknown Rx tablet gemfibrozil 600 mg tablet 600 mg PO BID #180 tab 08/30/20 01/15/21 01/15/21 08:30 Rx 600 albuterol sulfate 1 inh INHALATION QID PRN 11/14/20 01/15/21 Unknown History ascorbic acid (vitamin C) [Vitamin 500 mg PO QAM 11/15/20 01/15/21 01/15/21 08:30 History C] 500 cholecalciferol (vitamin D3) 1,000 unit PO QAM 11/15/20 01/15/21 Unknown History pantoprazole 40 mg tablet,delayed See Rx Instructions .ROUTE 11/28/20 01/15/21 01/15/21 08:30 Rx release .COMPLEX #180 tablet 40 citalopram 20 mg tablet 20 mg PO QAM #90 tab 12/07/20 01/15/21 01/15/21 08:30 Rx 20 amlodipine 2.5 mg tablet 2.5 mg PO QAM #90 tab 12/26/20 01/15/21 01/15/21 08:30 Rx 2.5 clopidogrel 75 mg tablet See Rx Instructions .ROUTE 12/26/20 01/15/21 01/15/21 08:30 Rx .COMPLEX #90 tablet 75 hydrochlorothiazide 25 mg tablet See Rx Instructions .ROUTE 12/26/20 01/15/21 01/15/21 08:30 Rx .COMPLEX #90 tablet 25 cephalexin 500 mg PO TID 7 Days #21 cap 01/15/21 Unknown Rx Allergies Allergy/AdvReac Type Severity Reaction Status Date / Time atorvastatin [From Lipitor] Allergy pain Verified 01/13/21 11:53 Penicillins Allergy hives Verified 01/13/21 11:53 Sulfa (Sulfonamide Allergy rash Verified 01/13/21 11:53 Antibiotics) PFSH Acute PFSH: Medical History (Updated 01/16/21 @ 01:11 by Jay Tovar MD) CAD (coronary artery disease) COPD (chronic obstructive pulmonary disease) Depression Hyperlipidemia Hypertension Mucopurulent chronic bronchitis Primary osteoarthritis of left knee Surgical History H/O hysterectomy with oophorectomy History of appendectomy History of hip replacement left Stented coronary artery 11/17 Social History Smoking and tobacco status: never smoked Second hand smoke exposure: Yes Vitals/I&O/Wt Last Vital Signs Temp 98.0 F 01/15/21 23:25 Pulse 60 01/15/21 23:25 Resp 17 01/15/21 23:25 BP 129/69 01/15/21 23:25 Pulse Ox 93 01/15/21 23:25 Weight last 48 hrs Weight 80.286 kg Physical Exam Narrative: EXAM NARRATIVE: General-alert awake oriented x3 no apparent distress HEENT- grossly unremarkable new line CVS- regular rate rhythm Chest- clear to auscultation, nonlabored respiration Abdomen-soft nontender nondistended Extremities -no edema Neurological - CN 2- 12 intact, motor strength 5/5 Data : 01/15/21 18:29 01/15/21 20:10 A&P Assessment and plan (1) Unsteady gait: Status: Acute (2) CAD (coronary artery disease): Status: Acute Qualifiers: Coronary Disease-Associated Artery/Lesion type: [place] artery [place] vs. transplanted heart: [place] heart Associated angina: without angina Qualified Code(s): I25.10 - Atherosclerotic heart disease of [place] coronary artery without angina pectoris Additional A&P Information TIA r/o CVA Blurry vision with unsteady gait. Symptoms resolved at time of arrival Resume aspirin 81 mg PO daily Continue plavix 75 mg PO daily Statin intolerance Neuro-checks ECHO MR Head w/o contrast in am Carotid US NPO until bedside swallow Cardiac diet if no aspiration risk Monitor on telemetry ST/PT/OT consult Coronary artery disease s/p hx of PCI/stent Aspirin/plavix ECHO ordered Hypertension Holding antihypertensive due to possible María Can resume 24 post symptoms ( AM ) COPD Stable Duoneb q6hr PRN DVT ppx Lovenox 40 mg SQ daily ( start tomorrow) Attestations Medical Necessity Statement*: Anticipate Less than 2 midnight stay in hospital Time Spent in Patient Care: Greater than 35 minutes (>than 50% of time spent in counselling and/or direct pt care on unit) . Coding Level of Care Code Acute [place] Guide for [place] Fwd Diagnoses Unsteady gait R26.81 CAD (coronary artery disease) I25.10 Coronary Disease-Associated Artery/Lesion type: [place] artery [place] vs. transplanted heart: [place] heart Associated angina: without angina
[2021-01-15 23:04] LABS: Troponin 5 2HR 13.94 ng/L (0-10); Troponin 5 2HR Delta 1.94 ABS# (0-10)
--- NOTE | 2021-01-16 00:13 | ECG_ITS ---
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 Measurements Intervals [place] Rate: 63 P: -9 KS: 158 QRS: 0 QRSD: 102 T: 35 QT: 452 QTc: 463 Interpretive Statements SINUS RHYTHM POSSIBLE ANTERIOR MYOCARDIAL INFARCTION , PROBABLY OLD [30 ms Q WAVE IN V3/V4, OR R < 0.2 mV IN V4] Compared to ECG 01/15/2021 20:12:38 Myocardial infarct finding now present Electronically Signed On 01-16-2021 19:26:37 CDT by Leah Cleary M.D. [id number]
--- NOTE | 2021-01-16 01:05 | USCV_ITS ---
LauritaJilDonya Urena Age: 80 Gender: F : 1940 Exam Date: 01/16/2021 06:36 Ordering Phys: Jay Tovar MD Technologist: [place] [facility] [place]: Risk Factors: None Previous Vascular Surgery: None Right Brachial BP: / Left Brachial BP: / Right Left Velocity (cm/s) Spectral Plaque Velocity (cm/s) Spectral Plaque Syst/Diast Broadening Syst/Diast Broadening 55.00/ 12.00 Prox CCA 62.50 / 12.40 61.70/ 13.20 Mid CCA 68.30 / 16.00 57.50/ 28.25 Distal CCA 67.60 / 18.90 50.30/ 13.40 Prox ICA 54.50 / 13.10 56.50/ 20.10 Mid ICA 58.10 / 14.50 60.15/ 16.50 Distal ICA 53.10 / 16.70 59.80 ECA 48.00 0.97 ICA/CCA 0.85 Antegrade Vertebral Antegrade 59.30/ 14.00 cm/s 38.50/ 10.90 cm/s Tri Subclavian Tri 85.00 101.0 0 CONCLUSIONS Right ICA stenosis <50%. Left ICA stenosis <50%. Normal antegrade Doppler flow noted in the right vertebral artery. Normal antegrade Doppler flow noted in the left vertebral artery. Fran Chambers MD (Electronically Signed) Final Date: 16 January 2021 15:54 S
[2021-01-16 03:28] VITALS: BP 118/68; PULSE 60; RESP 16; TEMP 36.7; O2SAT 94
[2021-01-16 04:16] LABS: Troponin 5 6HR 13.86 ng/L (0-10); Troponin 5 6HR Delta 1.86 ng/L (0-12)
[2021-01-16 04:26] LABS: Chol HDL Ratio 4.93 mg/dL (0.0-4.40); Cholesterol 202 mg/dL (0-200); HDL Cholesterol 41 mg/dL (60-100); LDL Cholesterol Calculated 145 mg/dL (50-129); LDL HDL Ratio 3.54 RATIO (0.00-3.22); Triglycerides 80 mg/dL (0-150)
--- NOTE | 2021-01-16 06:00 | USCV_ITS ---
Donya Carpio Age: 80 Gender: F : 1940 Exam Date: 01/16/2021 06:21 Ordering Phys: Jay Tovar MD Technologist: [place] [facility] [place] TIA BP: 118 / 68 HR: 64 Rhythm: Sinus Technical Quality: Fair MEASUREMENTS (Male / Female) Normal Values 2D ECHO LV Diastolic Diameter PLAX 4.4 cm 4.2 - 5.9 / 3.9 - 5.3 cm LV Systolic Diameter PLAX 3.2 cm IVS Diastolic Thickness 1.2 cm 0.6 - 1.0 / 0.6 - 0.9 cm IVS Systolic Thickness 1.3 cm LVPW Diastolic Thickness 1.1 cm 0.6 - 1.0 / 0.6 - 0.9 cm LVPW Systolic Thickness 1.3 cm LVOT Diameter 2.0 cm LV Ejection Fraction 2D Teich 52.3 % LV Ejection Fraction MOD 2C 63.7 % LV Ejection Fraction 2C AL 65.6 % LA Diameter 2.8 cm LA Width 3.8 cm LA Height 4.8 cm RA Width 3.8 cm RA Height 4.3 cm Aorta at Sinotubular Diameter 2.9 cm DOPPLER AV Peak Velocity 157.0 cm/s LVOT Peak Velocity 101.0 cm/s AV Area Cont Eq vti 2.4 cm squared AV Area Cont Eq pk 2.1 cm squared MV Area PHT 5.0 cm squared Mitral E to A Ratio 1.0 MV E' Velocity 56.0 cm/s Mitral E to MV E' Ratio 10.4 Mitral E to LV E' Lateral Ratio 10.1 Mitral E to LV E' Septal Ratio 10.9 TR Peak Velocity 142.3 cm/s TR Peak Gradient 8.1 mmHg TV Peak E Velocity 72.0 cm/s Right Atrial Pressure 3.0 mmHg Pulmonary Artery Systolic Pressu 11.1 mmHg FINDINGS Left Ventricle Normal left ventricular cavity size. Normal left ventricular systolic function. No regional wall motion abnormalities. Left ventricular ejection fraction is estimated at 55 %. Grade II/IV diastolic dysfunction, moderately elevated filling pressures. Right Ventricle The right ventricle is normal in size and function. Right Atrium The right atrium is normal in size. Left Atrium Mildly increased left atrial size. Mitral Valve Moderately thickened mitral valve. Moderate mitral annular calcification. No mitral valve stenosis. Mild mitral valve regurgitation. Aortic Valve Structurally normal aortic valve without significant sclerosis or stenosis. There is no aortic regurgitation. Tricuspid Valve Mild tricuspid valve regurgitation. Pulmonic Valve Structurally normal pulmonic valve without significant stenosis. There is no pulmonic regurgitation. Pericardium Normal pericardium without effusion. Aorta Normal ascending aorta dimension. CONCLUSIONS 1-Normal left ventricular cavity size. Normal left ventricular systolic function. No regional wall motion abnormalities. Left ventricular ejection fraction is estimated at 55 %. Grade II/IV diastolic dysfunction, moderately elevated filling pressures. 2-Moderately thickened mitral valve. Moderate mitral annular calcification. No mitral valve stenosis. Mild mitral valve regurgitation. 3-Structurally normal aortic valve without significant sclerosis or stenosis. There is no aortic regurgitation. 4-Mild tricuspid valve regurgitation. 6-There is no pericardial effusion. 7-Pulmonary artery systolic pressure is within normal limits. 8-Right atrial pressure is around 5 mm of mercury. 9-No significant change since the prior echocardiogram study of 09/24/2018 Rober Hernandez MD (Electronically Signed) Final Date: 16 January 2021 20:10 S
[2021-01-16 07:53] VITALS: BP 151/78; PULSE 65; RESP 16; TEMP 36.4; O2SAT 94
[2021-01-16 08:23] VITALS: PULSE 64; RESP 18; O2SAT 93
--- NOTE | 2021-01-16 08:54 | PC.PHAR ---
pt states she takes care of her own medications-pt verified medications
--- NOTE | 2021-01-16 09:42 | PC.CHAP ---
Pastoral Care Encounter/Spiritual Assessment Type of Contact [] Declined banquet captain visit [] Patient/Family/Request visit [] Outpatient visit [] Follow-up visit [] Physician referral [] Code/Alert [x] Routine visit [] Staff referral [] Actively dying [x] Patient sleeping [] Family support [] [] Out of room [] Palliative care [] [] Receiving care in room [] Pre-surgical visit [] Trauma [] Long length of stay [] ICU visit [] Other: Relational/Emotional Strength [] Patient feels connected with others/family/visitors/staff [] Distress [] Loneliness/isolation [] Abandonment Spirituality of Patient [] Person of Teri [] Attends Muslim of their Teri [] Believes in Prayer [] Reads Bible or Bahai materials [] There are Spiritual issues to be addressed Fundraising Sale Representative Interventions [] Prayer [] Active listening [] Non-anxious presence [] Spiritual/emotional support [] Crisis/trauma care [] Spiritual counseling [] Bereavement support [] Provided bereavement packet [] Provided Bible/devotional materials [] Provided toy/stuffed animal, coloring book to patient or family member [] Provided Communion [] Anointing/[place] [] Salvation [] Completed spiritual assessment [] Other: Impact on Illness or Injury [] Angry [] Fearful [] Anxious [] Often cries [] Exhaustion [] Unable to work [] Unable to attend buddhism [] Unable to walk/stand [] Unable to read [] Unable to drive [] Unable to eat/drink [] Unable to sleep [] Unable to be with family [] Patient intubated [] Other: Summary Time spent with patient
[2021-01-16] MEDS: aspirin 81 mg EC Tablet PO (10:33)
--- NOTE | 2021-01-16 11:19 | PC.NUTR ---
Nutrition consult per Dr. Tovar for stroke dx. Provided nutrition education on heart healthy diet, completing approx 75% before pt needing to leave for MRI. Verbalized understanding. Left materials with pt and niece, and provided RD phone extension. Encouraged pt to discuss unexplained wt loss with MD, as she states appetite/intake has not changed significantly. Recommend consideration of Cardiac diet. See full RD assessment for further details.
[2021-01-16 12:00] VITALS: BP 140/80; PULSE 70; RESP 16; TEMP 36.6; O2SAT 95
--- NOTE | 2021-01-16 13:22 | P.DS_ITS ---
Discharge Providers Date of Admission: 01/15/21 21:42 Date of Discharge: January 16, 2021 Attending Provider at Admission: Jay Tovar Attending Provider at Discharge: Rober Angeles MD Primary Care Provider: SIVAKUMAR Holloway Diagnoses at Discharge Discharge Diagnosis (1) Unsteady gait: Status: Acute (2) CAD (coronary artery disease): Status: Acute Qualifiers: Associated angina: without angina Coronary Disease-Associated Artery/Lesion type: [place] artery [place] vs. transplanted heart: [place] heart Qualified Code(s): I25.10 - Atherosclerotic heart disease of [place] coronary artery without angina pectoris Reason for Visit Reason for Visit: BLURRY VISION AND CANT WALK Hospital Course Hospital Course HPI done by Dr. Tovar 80-year-old with a past medical history significant for anxiety, depression, hypertension, depression, arthritis, coronary artery disease with recent stent placement, statin intolerance was presented to the hospital with acute onset of blurry vision. Patient stated this started around 9:00 a.m. it was noted in both visual sterling. Attempted to ambulate and felt unsteady as if she was ?Drunk?.Symptoms gradually improved throughout the day. No unilateral weakness. Denies any numbness or tingling. No prior history of stroke.Laboratory workup however showed a WBC of 5.9, hemoglobin 12.1, hematocrit of 37.9 and a platelet count of 355. INR 1.01. Sodium 138, potassium 3.6, chloride 100, bicarb 24, BUN 28 and creatinine 1.0. Troponin T baseline of 12, with a repeat of 13.94. UA negative.Chest x-ray did not show any acute cardiopulmonary.CT head without contrast did not show any evidence of acute intracranial abnormality. Hospital course Patient was admitted for evaluation of TIA. Her symptoms resolved by the time she was seen in the ER. CT head unremarkable. MRI head was unremarkable as well. NIH 0 at the time of my evaluation. Patient was able to swallow without any difficulty, she had good strength of upper and lower extremities, she was deemed stable to be discharged home after PT evaluation. She will be discharged home on aspirin, Plavix and gemfribzole. Carotid Doppler unremarkable. Echo report is pending. Physical Exam Narrative: EXAM NARRATIVE: NIH 0 S1-S2 No carotid bruit No murmur appreciated Abdomen soft Saturating well on room air EOMI, PERRLA No neurological focal deficit noted Discharge Data Data Completed and Pending: Completed Studies During Hospitalization Category Date Time Status CT head wo con* [id number] Urgent Cat Scan 01/15/21 18:13 Completed XR chest 1V yamel ble [id number] Stat Exams 01/15/21 18:13 Completed MR head wo con* [id number] Urgent MRI 01/16/21 21:20 Completed Pending at discharge Category Date Time Status CV carotid duplex BI* [id number] Routine Ultrasound 01/16/21 01:05 Taken CV. echo complete * [id number] Routine Ultrasound 01/16/21 06:00 Taken Labs from last 24 hours 01/16/21 01/16/21 01/15/21 02:25 02:25 22:08 WBC RBC Hgb Hct MCV MCH MCHC RDW Plt Count MPV Neut % (Auto) Lymph % (Auto) [place] % (Auto) Eos % (Auto) Baso % (Auto) Neut # (Auto) Lymph # (Auto) [place] # (Auto) Eos # (Auto) Baso # (Auto) Nucleated RBC % (a uto) Nucleated RBCs # PT INR Sodium Potassium Chloride Carbon Dioxide Anion Gap BUN Creatinine GFR Calculation Glucose Calculated Osmolal ity Calcium Total Bilirubin AST ALT Alkaline Phosphata se Troponin T Baselin e Troponin T 120 Min [place] 13.94 H Delta Troponin T 1.94 Troponin T Hi Sens 6Hr 13.86 H Troponin T Hi Sens 6Hr Delta 1.86 Total Protein Albumin Globulin Triglycerides 80 Cholesterol 202 H LDL Cholesterol, C alc 145 H HDL Cholesterol 41 L LDL/HDL Ratio 3.54 H Cholesterol/HDL Ra jorge 4.93 H Urine Color Urine Appearance Urine pH Ur Specific Gravit y Urine Protein Urine Glucose (UA) Urine Ketones Urine Blood Urine Nitrate Urine Bilirubin Urine Urobilinogen Ur Leukocyte Shu ase 01/15/21 01/15/21 01/15/21 20:10 19:25 18:29 WBC RBC Hgb Hct MCV MCH MCHC RDW Plt Count MPV Neut % (Auto) Lymph % (Auto) [place] % (Auto) Eos % (Auto) Baso % (Auto) Neut # (Auto) Lymph # (Auto) [place] # (Auto) Eos # (Auto) Baso # (Auto) Nucleated RBC % (a uto) Nucleated RBCs # PT INR Sodium 138 Potassium 3.6 Chloride 100 Carbon Dioxide 24 Anion Gap 17.6 BUN 28 H Creatinine 1.0 H GFR Calculation Not Reportable Glucose 97 Calculated Osmolal ity 291 Calcium 10.2 Total Bilirubin 0.2 AST 26 ALT 15 Alkaline Phosphata se 98 Troponin T Baselin e 12 H Troponin T 120 Min [place] Delta Troponin T Troponin T Hi Sens 6Hr Troponin T Hi Sens 6Hr Delta Total Protein 7.8 Albumin 4.3 Globulin 3.5 Triglycerides Cholesterol LDL Cholesterol, C alc HDL Cholesterol LDL/HDL Ratio Cholesterol/HDL Ra jorge Urine Color Yellow Urine Appearance Clear Urine pH 6 Ur Specific Gravit y 1.010 Urine Protein Neg Urine Glucose (UA) Norm Urine Ketones Negative Urine Blood Neg Urine Nitrate Negative Urine Bilirubin Neg Urine Urobilinogen Norm Ur Leukocyte Shu ase Negative 01/15/21 01/15/21 01/15/21 18:29 18:29 18:29 WBC 5.9 RBC 4.10 Hgb 12.1 Hct 37.9 MCV 92.4 MCH 29.5 MCHC 31.9 RDW 14.3 Plt Count 355 MPV 11.1 H Neut % (Auto) 49.1 Lymph % (Auto) 36.0 [place] % (Auto) 9.3 Eos % (Auto) 4.6 Baso % (Auto) 0.5 Neut # (Auto) 2.89 Lymph # (Auto) 2.1 [place] # (Auto) 0.6 Eos # (Auto) 0.3 Baso # (Auto) 0.0 Nucleated RBC % (a uto) 0 Nucleated RBCs # 0.0 PT 13.70 INR 1.01 Sodium Cancelled Potassium Cancelled Chloride Cancelled Carbon Dioxide Cancelled Anion Gap Cancelled BUN Cancelled Creatinine Cancelled GFR Calculation Cancelled Glucose Cancelled Calculated Osmolal ity Cancelled Calcium Cancelled Total Bilirubin Cancelled AST Cancelled ALT Cancelled Alkaline Phosphata se Cancelled Troponin T Baselin e Troponin T 120 Min [place] Delta Troponin T Troponin T Hi Sens 6Hr Troponin T Hi Sens 6Hr Delta Total Protein Cancelled Albumin Cancelled Globulin Cancelled Triglycerides Cholesterol LDL Cholesterol, C alc HDL Cholesterol LDL/HDL Ratio Cholesterol/HDL Ra jorge Urine Color Urine Appearance Urine pH Ur Specific Gravit y Urine Protein Urine Glucose (UA) Urine Ketones Urine Blood Urine Nitrate Urine Bilirubin Urine Urobilinogen Ur Leukocyte Shu ase Vitals: Last Vital Signs Temp 97.6 F 01/16/21 07:53 Pulse 64 01/16/21 08:23 Resp 18 01/16/21 08:23 BP 151/78 01/16/21 07:53 Pulse Ox 93 01/16/21 08:23 Discharge Plan Discharge Patient Disposition: Home Condition: Stable Prescriptions: Continued (DME) HINGED KNEE BRACE See Rx Instructions .Route .MEDSUPPLY Qty: 1 RF: 0 isosorbide mononitrate 60 mg tablet extended release 24 hr 30 mg PO BID Qty: 90 RF: 2 nitroglycerin 0.4 mg tablet, sublingual 0.4 mg SUBLINGUAL Q5M PRN (Reason: chest pain) Qty: 30 RF: 3 gemfibrozil 600 mg tablet 600 mg PO BID Qty: 180 RF: 1 citalopram 20 mg tablet 20 mg PO QAM Qty: 90 RF: 0 amlodipine 2.5 mg tablet 2.5 mg PO QAM Qty: 90 RF: 1 albuterol sulfate 90 mcg/actuation HFA aerosol inhaler 1 inh inhalation QID PRN (Reason: Shortness Of Breath) RF: 0 ascorbic acid (vitamin C) [Vitamin C] 500 mg Tablet 500 mg PO QAM RF: 0 cholecalciferol (vitamin D3) 25 mcg (1,000 unit) capsule 1,000 unit PO QAM RF: 0 pantoprazole 40 mg tablet,delayed release (DR/EC) 40 mg PO BID RF: 0 hydrochlorothiazide 25 mg tablet 25 mg PO QAM RF: 0 Claritin 10 mg Tablet 10 mg PO DAILY PRN (Reason: Allergy Symptoms) RF: 0 Changed clopidogrel 75 mg tablet 75 mg PO QAM 21 Days Qty: 21 RF: 0 Adult Low Dose Aspirin 81 mg tablet,delayed release (DR/EC) 162 mg PO QAM 21 Days Qty: 21 RF: 0 Discharge Orders: Discharge Order (Routine); Ordered 01/16/21 Ordered By: Rober Angeles Referrals: Abbey Oh FNP [Primary Care Provider] - 01/19/21 11:00 am (TIA) Discharge Diet: Cardiac Discharge Activity: Increase activity as tolerated Patient Instructions: Transient Ischemic Attack (DC), Urinary Tract Infection in Women (ED), Opioid Safety Discharge Attestations Time Spent in Discharge Care*: less than 30 min Quality Metrics Clinical Quality Measures During this hospital stay, did patient experience: None Coding Level of Care Code Acute Chg FW DC note Diagnoses Unsteady gait R26.81 CAD (coronary artery disease) I25.10 Associated angina: without angina Coronary Disease-Associated Artery/Lesion type: [place] artery [place] vs. transplanted heart: [place] heart
[2021-01-16 14:24] VITALS: BP 140/80; PULSE 70; RESP 16; TEMP 36.6; O2SAT 95
--- NOTE | 2021-01-16 15:57 | PC.OT ---
OT EVALUATION ORDERS RECEIVED. PATIENT DISCHARGED BEFORE EVALUATION COULD BE ATTEMPTED.
--- NOTE | 2021-01-16 17:13 | PC.RESP ---
Pulmonary Rehab information sent to patient.
--- NOTE | 2021-01-16 21:20 | MR_ITS ---
WS: [id number] MRI HEAD WITHOUT CONTRAST TECHNIQUE: Sagittal T1, T2 axial, T2 axial FLAIR, axial and coronal T1 images, axial susceptibility w eighted imaging, axial diffusion weighted images, and coronal T2 images were obtained. CLINICAL INFORMATION: tia r/o cva COMPARISON: CT January 05, 2021 FINDINGS: No evidence of restricted diffusion to suggest acute ischemia. Ventricular system and basal cisterns are patent. Mild to moderate small vessel changes with mild parenchymal volume loss. Normal posterior fossa. Normal vascular flow voids at the skull base. No extra-axial fluid collections. No evidence o f mass or mass effect. Mild mucosal thickening in the paranasal sinuses. Mastoid air cells are well a erated. No hemosiderin on susceptibly weighted images. Mild symmetric atrophy temporal lobes and hippocampal formations. Cavernous sinuses and Meckel's cave are normal in appearance. MR/MR head wo con* [id number] IMPRESSION: 1. No evidence of restricted diffusion to suggest acute ischemia. 2. Mild to moderate small vessel changes with mild parenchymal volume loss. 3. No extra-axial fluid collections. No evidence of mass or mass effect. 4. No hemosiderin on susceptibly weighted images. 5. Mild symmetric atrophy temporal lobes and hippocampal formations. 6. No other significant findings.
== END 2021-01-16 14:25 | disposition home or self-care (01) ==
LOC: ER 20:38 → MEDSURG 21:43
PROVIDERS: Nurse Practitioner Family; Admitting Provider Hospitalist; Emergency Provider Emergency Medicine; PCP Nurse Practitioner Family; Visit Provider Internal Medicine
DX: I63.9 Cerebral infarction, unspecified (principal); R26.81 Unsteadiness on feet; I25.10 Atherosclerotic heart disease of native coronary artery without angina pectoris; F41.9 Anxiety disorder, unspecified; F32.9 Major depressive disorder, single episode, unspecified; M19.90 Unspecified osteoarthritis, unspecified site; Z95.5 Presence of coronary angioplasty implant and graft; Z79.82 Long term (current) use of aspirin
CPT/HCPCS: 36415; 70450; 70551; 71045; 80053; 80061; 81003; 84484; 85025; 85610; 92523; 92610; 93005; 93306; 93880; 94664; 97161; 99285; G0378

== ENCOUNTER 2021-03-16 13:20 | Observation (INO) | payer MEDICARE, OTHER, SELFPAY ==
--- NOTE | 2021-03-16 13:36 | ECG_ITS ---
[facility] Test Date: 2021-03-16 Pat Name: Donya Carpio Department: Room: Gender: Female Sfdc Consultant: : 1940 Requested By: Tiburcio Willis Order Number: [id number] Reading MD: MICKY MELGOZA Measurements Intervals [place] Rate: 71 P: 54 MN: 152 QRS: -5 QRSD: 86 T: 42 QT: 355 QTc: 388 Interpretive Statements SINUS RHYTHM WITH FREQUENT SUPRAVENTRICULAR PREMATURE COMPLEXES POSSIBLE ANTERIOR MYOCARDIAL INFARCTION , PROBABLY OLD [30 ms Q WAVE IN V3/V4, OR R < 0.2 mV IN V4] ABNORMAL RHYTHM ECG Compared to ECG 01/16/2021 00:20:34 No significant changes Electronically Signed On 03-16-2021 19:53:58 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
[2021-03-16 13:46] VITALS: BP 161/79; PULSE 69; RESP 16; TEMP 36.8; O2SAT 98
--- NOTE | 2021-03-16 14:14 | CT_ITS ---
WS: [id number] CT ABDOMEN AND PELVIS WITH CONTRAST HISTORY: Family hx of pancreatic cancer, epigastric pain TECHNIQUE: Imaging performed of the abdomen and pelvis with IV contrast. Single phase imaging of the abdomen. Coronal and sagittal reformats are submitted. All CT scans at [facility] use at [address] [facility] one of these dose optimization techniques: automated exposure control; mA and/or kV adjustment per patient size (includes targeted exams where dose is matched to clinical indication); or iterative re construction. IV CONTRAST: Visipaque 320; 95 mL IV. Oral contrast: No DLP: 1662.21 mGy.cm COMPARISON: 04/04/2015 Lower thorax: Benign RIGHT lower lobe granuloma. Mildly enlarged heart. No significant hiatal hernia. Liver/biliary system: Normal size with no intrahepatic dilatation. Gallbladder: Normal. No gallstones or wall thickening. No pericholecystic fluid. Pancreas: Normal size pancreas and pancreatic duct. No adjacent inflammation. Spleen: Normal size spleen with granulomata. There are several additional very tiny scattered hypoden sities which are too small to characterize. Adrenal glands: Normal. Right kidney: Normal. Left kidney: Normal. Aorta: Moderate atherosclerotic plaque within the aorta. No dilatation. Noncalcified plaque within th e inferior thoracic aorta. More calcified plaque below the level of the renal arteries. Lymphadenopathy: None. Free fluid: None. GI tract: Prior appendectomy. There is no GI tract obstruction. There is a row of sutures at the junc tion of the rectosigmoid. No adjacent soft tissue obstruction. There is artifact through the rectum a nd anus from patient's LEFT hip arthroplasty. Very slight wall thickening involving the antrum of the stomach may be due to underdistention. Abdominal wall: Unremarkable abdominal wall. No hernia. Pelvis: No free fluid or adenopathy within the pelvis. Prior hysterectomy. Bones: L4 anterolisthesis by 5 mm. Degenerative disc disease and vacuum disc phenomenon at multiple l evels in the lower thoracic and lumbar spine. Prior LEFT hip arthroplasty. CT/CT abdomen pelvis w con* [id number] IMPRESSION: 1. No pancreatic mass. 2. No GI tract obstruction. Surgical anastomosis involving the rectosigmoid wi th no complications. 3. No ascites. 4. Moderate atherosclerotic disease throughout the aorta.
--- NOTE | 2021-03-16 14:14 | CT_ITS ---
WS: [id number] CT HEAD NONCONTRAST HISTORY: fall TECHNIQUE: Contiguous axial imaging performed through the brain in 2.5 mm imaging. Bone and soft tiss ue windows. Sagittal and coronal reformats reviewed. All CT scans at [facility] use at least one of these dose optimization techniques: automated exposure control; mA and/or kV adjustment per pa tient size (includes targeted exams where dose is matched to clinical indication); or iterative recon struction. DLP: 647.39 mGy.cm COMPARISON: 01/15/2021 No acute intracranial hemorrhage, midline shift or mass effect. Mild atrophy and mild chronic microvascular ischemic disease. No prior infarcts. Ventricles: Normal size with no hydrocephalus. No inferior displacement of cerebellar tonsils. Paranasal sinuses: Small amount of fluid and air-fluid level in the RIGHT sphenoid sinus. Small amoun t mucoperiosteal thickening in the posterior LEFT sphenoid sinus. Mastoid air cells: Well pneumatized. Calvarium and scalp: Skull is intact with no soft tissue edema or swelling. CT/CT head wo con* [id number] IMPRESSION: 1. No acute intracranial hemorrhage or edema. 2. Mild atrophy and chronic microvascular ischemic disease. Very similar appea [place] as compared to 01/15/2021.
--- NOTE | 2021-03-16 14:17 | W.ED.GENADLT ---
HPI - General Adult General: Chief complaint: Syncope Stated complaint: DIZZY WITH RECENT SYNCOPALS Time Seen by Provider: 03/16/21 13:55 History of Present Illness: HPI narrative: HPI: [80]yo patient w/ hx of CAD s/p stents x 2, HLD, HTN, TIA, COPD BIBA for concern for s/p acute episode of syncope x yesterday at 8:15am with collapse. The episode was not witnessed by any family members or bystanders. Patient felt intermittent light-headedness yesterday throughout the day. Patent was told tocome in to the ER by her PCP. Patient had an episode of dull chest pain this mornig. On arrival, the patient denies any SOB, palpitations, focal neurological weakness in the arms or legs. Patient could not recall exactly what happened, but denied any post-ictal confusion, bowel or bladder incontinence after the incident. Most recent syncope was 1 month ago. Denies any chest pain, shortness, palpitation, abdominal pain or back pain prior to the episode of syncope. No recent exertional chest pain or shortness of breath. Denies vertigo or disequilibrium. The episode of syncope was not preceded by any prodromes including nausea, pallor, or diaphoresis. No symptoms of diarrhea, hematuria, dysuria, melena or hematochezia. No prior documented hx of anemia requiring blood transfusions, VTE, or aortic aneurysm. No, patient tells me that her daughter has been diagnosed with pancreatic cancer. Patient has had decreased p.o. intake, weight loss, bloating, abdominal pain, and constipation. Patient would like to be evaluated for pancreatic cancer today Onset: 1 day ago Duration: x 1 episode Location: home Severity: moderate Review of Systems Narrative: Constitutional: No fever, no chills. HEENT: No vision changes CV: No chest pain, no palpitations PULM: No productive cough, no dyspnea. GI: No abdominal pain, no N/V/D. : No Dysuria MSKEL: No muscle pain SKIN: No new rashes, no lesions. NEURO: No headache, no focal weakness. +Syncope/light-headedness HEME: No visible bruises PSYCH: Normal mood PFSH ED PFSH: Medical History CAD (coronary artery disease) COPD (chronic obstructive pulmonary disease) Depression Hx-TIA (transient ischemic attack) Hyperlipidemia Hypertension Mucopurulent chronic bronchitis Primary osteoarthritis of left knee Surgical History H/O hysterectomy with oophorectomy History of appendectomy History of hip replacement left Stented coronary artery 11/17 Social History Smoking and tobacco status: never smoked Second hand smoke exposure: Yes Physical Exam Narrative: EXAM NARRATIVE: Head: Atraumatic Eyes: PERRL, conjunctiva without injection, eyes tracking ENT: Mucous membrane moist NECK: Supple without lymphadenopathy, no nuchal rigidity LUNGS: LCTAB CV: RRR ABDOMEN: Soft, +mil epigastric in all quadrants, no guarding or rebound tenderness, no CVA or flank tenderness bilaterally EXTREMITY: Normal ROM SKIN: No rash or erythema NEURO: Mental status: A/Ox3 CN II-XII tested and intact. Sensation intact to sharp/dull differentiation in all extremities. Motor: Normal tone and bulk. No abnormal movements appreciated. No pronator drift. Strength tested and 5/5 in bilateral wrist flexion/extension, elbow flexion/extension, shoulder abduction, straight leg raise, knee flexion/extension, ankle dorsiflexion/plantarflexion. Patient ambulates with a steady gait. Coordination: Finger to nose and heel to rueda testing intact bilaterally. PSYCH: Cooperative mood and affect Course Vital Signs: Vital signs: Vital Signs Temperature 98.3 F 03/16/21 13:46 Pulse Rate 69 03/16/21 13:46 Respiratory Rate 16 03/16/21 13:46 Blood Pressure 161/79 03/16/21 13:46 Pulse Oximetry 98 03/16/21 13:46 MDM - General Adult MDM Narrative: Medical decision making narrative: [80]yo patient w/ hx of CAD s/p stent x 2, HLD, HTN, TIA presenting to the ED with multiple episodes of near syncope/syncope x 1 episode. +chest pain today, -SOB, -palpitations. Currently symptom free. S/p fall HDS. Neurologically intact. Given history, exam and workup, presentation not consistent with seizures given short time course, no postictal state, no seizure activity. Low suspicion for acute neurologic catastrophes to include ICH given lack of trauma, risk factors for bleeding diathesis. Low suspicion for vascular catastrophes to include PE, thoracic aortic dissection, AAA rupture. Presentation not consistent with acute life threatening arrhythmia, structural heart disease, electrical conduction abnormalities, or ACS. Workup: CBC, BMP, Troponin, BNP, ECG, CT head, CT abd+pelvis Intervention: IVF, PO challenge, and serial reassessment EKG: No e/o STEMI. No evidence of Brugada?s sign, delta wave, epsilon wave, significantly prolonged QTc, or malignant arrhythmia. [3:30pm] On reassessment, patient continues to HDS. No acute complaints currently. No syncopal episode in the ER. No arrhythmia noted on the threat monitoring analyst. []Patient has been able to ambulate in the ED without issues. No suspicion of neurogenic syncope at this time. However, given age, cardiovascular risk factors and multiple co-rmbities, the patient will need inpatient workup for cardiac syncope. Patient agrees with the plan for inpatient admission at this time. Disposition: Admit to medicine, telemetry bed for cardiac monitoring and cardiology review. Lab Data: Labs: Lab Results 03/16/21 03/16/21 03/16/21 14:41 14:41 14:41 WBC 6.3 10^3/uL 10^3/ uL (4.0-10.0) RBC 4.37 10^6/uL 10^6 /uL (4.1-5.3) Hgb 12.9 g/dL g/dL (11.5-15.3) Hct 39.8 % % (37.0-47.0) MCV 91.1 fl fl (81-99) MCH 29.5 pg pg (28.0-34.0) MCHC 32.4 g/dL g/dL (30.0-36.0) RDW 14.3 % % (12.1-15.1) Plt Count 339 10^3/cmm 10^3 /cmm (130-400) MPV 11.2 fL H fL (7.4-10.4) Neut % (Auto) 51.5 % % Lymph % (Auto) 35.6 % % [place] % (Auto) 6.2 % % Eos % (Auto) 5.8 % % Baso % (Auto) 0.6 % % Neut # (Auto) 3.26 10^3/uL 10^3 /uL (1.8-7.7) Lymph # (Auto) 2.3 10^3/uL 10^3/ uL (0.8-4.8) [place] # (Auto) 0.4 10^3/uL 10^3/ uL (0.2-0.9) Eos # (Auto) 0.4 10^3/uL 10^3/ uL (0.0-0.8) Baso # (Auto) 0.0 10^3/uL 10^3/ uL (0.0-0.1) Nucleated RBC % (a uto) 0 % % Nucleated RBCs # 0.0 /100WBC /100W BC Sodium 141 mmol/L mmol/L (136-145) Potassium 3.8 mmol/L mmol/L (3.5-5.1) Chloride 100 mmol/L mmol/L (98-107) Carbon Dioxide 22 mmol/L mmol/L (22-29) Anion Gap 22.8 H (5-19) BUN 21 mg/dL mg/dL (8-23) Creatinine 1.2 mg/dL H mg/dL (0.5-0.9) GFR Calculation Not Reportable Glucose 94 mg/dL mg/dL (65-115) Calculated Osmolal ity 295 mOsm/kg mOsm/ kg (285-295) Calcium 9.7 mg/dL mg/dL (8.5-10.5) Troponin T Baselin e 13 ng/L H ng/L (0-10) Imaging Data^: Other Imaging: Radiologist's impression: [address] [id number] Scan ReportSigned Patient: Walter Carpio #: [id number]: 1940Acct#:[id number]/Sex: 80 / FADM Date: 03/16/21Loc: ERRoom/Bed:Attending Dr: Ordering Provider/Ordering MD: Tiburcio Willis MD Date of Service: 03/16/21 Procedure(s): CT head wo con* [id number] Accession Number(s): [id number] Report Number: [id number] WS: [id number] CT HEAD NONCONTRAST HISTORY: fall TECHNIQUE: Contiguous axial imaging performed through the brain in 2.5 mm imaging. Bone and soft tissue windows. Sagittal and coronal reformats reviewed. All CT scans at [facility] use at least one of these dose optimization techniques: automated exposure control; mA and/or kV adjustment per patient size (includes targeted exams where dose is matched to clinical indication); or iterative reconstruction. DLP: 647.39 mGy.cm COMPARISON: 01/15/2021 No acute intracranial hemorrhage, midline shift or mass effect. Mild atrophy and mild chronic microvascular ischemic disease. No prior infarcts. Ventricles: Normal size with no hydrocephalus. No inferior displacement of cerebellar tonsils. Paranasal sinuses: Small amount of fluid and air-fluid level in the RIGHT sphenoid sinus. Small amount mucoperiosteal thickening in the posterior LEFT sphenoid sinus. Mastoid air cells: Well pneumatized. Calvarium and scalp: Skull is intact with no soft tissue edema or swelling. CT/CT head wo con* [id number] IMPRESSION: 1. No acute intracranial hemorrhage or edema. 2. Mild atrophy and chronic microvascular ischemic disease. Very similar appearance as compared to 01/15/2021. Dictated By:Luh Nava DOSigned By:Luh Nava DOSigned Date/Time:03/16/21 1548DD/ 1545 [facility] [place], [place] [address]QX Scan ReportSigned Patient: Walter Carpio #: [id number]: 1940Acct#:[id number]/Sex: 80 / FADM Date: 03/16/21Loc: ERRoom/Bed:Attending Dr: Ordering Provider/Ordering MD: Tiburcio Willis MD Date of Service: 03/16/21 Procedure(s): CT abdomen pelvis w con* [id number] Accession Number(s): [id number] Report Number: [id number] WS: [id number] CT ABDOMEN AND PELVIS WITH CONTRAST HISTORY: Family hx of pancreatic cancer, epigastric pain TECHNIQUE: Imaging performed of the abdomen and pelvis with IV contrast. Single phase imaging of the abdomen. Coronal and sagittal reformats are submitted. All CT scans at [facility] use at least one of these dose optimization techniques: automated exposure control; mA and/or kV adjustment per patient size (includes targeted exams where dose is matched to clinical indication); or iterative reconstruction. IV CONTRAST: Visipaque 320; 95 mL IV. Oral contrast: No DLP: 1662.21 mGy.cm COMPARISON: 04/04/2015 Lower thorax: Benign RIGHT lower lobe granuloma. Mildly enlarged heart. No significant hiatal hernia. Liver/biliary system: Normal size with no intrahepatic dilatation. Gallbladder: Normal. No gallstones or wall thickening. No pericholecystic fluid. Pancreas: Normal size pancreas and pancreatic duct. No adjacent inflammation. Spleen: Normal size spleen with granulomata. There are several additional very tiny scattered hypodensities which are too small to characterize. Adrenal glands: Normal. Right kidney: Normal. Left kidney: Normal. Aorta: Moderate atherosclerotic plaque within the aorta. No dilatation. Noncalcified plaque within the inferior thoracic aorta. More calcified plaque below the level of the renal arteries. Lymphadenopathy: None. Free fluid: None. GI tract: Prior appendectomy. There is no GI tract obstruction. There is a row of sutures at the junction of the rectosigmoid. No adjacent soft tissue obstruction. There is artifact through the rectum and anus from patient's LEFT hip arthroplasty. Very slight wall thickening involving the antrum of the stomach may be due to underdistention. Abdominal wall: Unremarkable abdominal wall. No hernia. Pelvis: No free fluid or adenopathy within the pelvis. Prior hysterectomy. Bones: L4 anterolisthesis by 5 mm. Degenerative disc disease and vacuum disc phenomenon at multiple levels in the lower thoracic and lumbar spine. Prior LEFT hip arthroplasty. CT/CT abdomen pelvis w con* [id number] IMPRESSION: 1. No pancreatic mass. 2. No GI tract obstruction. Surgical anastomosis involving the rectosigmoid with no complications. 3. No ascites. 4. Moderate atherosclerotic disease throughout the aorta. 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
[2021-03-16] MEDS: sodium chloride 0.9% 500 ML IV (14:55)
[2021-03-16 14:57] LABS: Basophils % 0.6 %; Eosinophils # 0.4 10^3/uL (0.0-0.8); Eosinophils % 5.8 %; Hematocrit 39.8 % (37.0-47.0); Hemoglobin 12.9 g/dL (11.5-15.3); Lymphocytes # 2.3 10^3/uL (0.8-4.8); Lymphocytes % 35.6 %; Mean Corpuscular HGB Conc 32.4 g/dL (30.0-36.0); Mean Corpuscular Hemoglobin 29.5 pg (28.0-34.0); Mean Corpuscular Volume 91.1 fl (81-99); Mean Platelet Volume 11.2 fL (7.4-10.4); Monocytes # 0.4 10^3/uL (0.2-0.9); Monocytes % 6.2 %; Neutrophils # 3.26 10^3/uL (1.8-7.7); Neutrophils % 51.5 %; Nucleated Red Blood Cells % 0 %; Platelet Count 339 10^3/cmm (130-400); Red Blood Count 4.37 10^6/uL (4.1-5.3); Red Cell Distribution Width 14.3 % (12.1-15.1); White Blood Count 6.3 10^3/uL (4.0-10.0)
[2021-03-16 15:17] LABS: Anion Gap 22.8 (5-19); Blood Urea Nitrogen 21 mg/dL (8-23); Calcium 9.7 mg/dL (8.5-10.5); Carbon Dioxide 22 mmol/L (22-29); Chloride 100 mmol/L (98-107); Glucose 94 mg/dL (65-115); Osmolality Calculated 295 mOsm/kg (285-295); Potassium 3.8 mmol/L (3.5-5.1); Sodium 141 mmol/L (136-145)
[2021-03-16 15:21] LABS: Troponin(5th) Baseline 13 ng/L (0-10)
--- NOTE | 2021-03-16 15:32 | P.HP_ITS ---
Providers/Chief Complaint Primary Care Provider: SIVAKUMAR Holloway Chief Complaint: DIZZY WITH RECENT SYNCOPALS History of Present Illness Donya Carpio is a 80 year old female with PMHx of HTN, depression, arthritis established coronary disease status post drug-eluting stent proximal RCA 80% stenosis October 2018 and then balloon angioplasty with drug-eluting stent proximal to mid LAD 11/[address] Cleary presented today after syncopal event. Patient was discharged on 01/16 after TIA work-up where MRI head unremarkable, echo showed EF 55% grade 2 diastolic dysfunction mild mitral valve regurgitation no signs of pericardial effusion or aortic stenosis. Patient is stating that today she was fixing a cup of coffee by her sink when she started feeling lightheaded, she waited for a while thinking this dizzy fee ling/lightheadedness will improve however it worsened and she fell on the floor. She did not notice any tongue bite, urinary/bowel incontinence, seizure-like activities. She lives alone at this event happened around 8:30 AM on 03/15. She is not sure for how long she stayed on the floor but thinks it was for a brief period of time. She stayed in the bed all day and did not tell her family. Today when he informed her daughter she sent her to the hospital for further evaluation. In the ER hemodynamically stable CT head unremarkable, CT abdomen pelvis was done as patient was stating that she developed symptoms of pancreatic cancer which her daughter developed when she CT abdomen pelvis is unremarkable CT head unremarkable NIH 0 Nonfocal neuro exam, sinus rhythm with PVCs no QTC prolongation B12 414 We will check TSH Prolactin, She is denying chest pain, nausea, vomiting, strokelike symptoms, however stating that she does get chest discomfort occasionally, she had another syncop al event a month ago when she was playing with her granddaughter . Review of Systems Const: Denies: chills or body aches Eyes: Denies: change in vision ENMT: Denies: throat pain Card: Reports: chest pain Resp: Denies: dyspnea GI: Denies: abdominal pain : Denies: flank pain Musc: Denies: neck pain Skin/Breast: Denies: rash Neuro: Denies: headache(s) Psych: Denies: anxiety Endo: Denies: polyuria Ed/Lymph: Denies: easy bruising All/Imm: Denies: urticaria Medications/Allergies Home Medications Medication Instructions Recorded Confirmed Last Taken Type HINGED KNEE BRACE #1 ea NS 12/16/19 03/16/21 Unknown Rx isosorbide mononitrate 60 mg 30 mg PO BID #90 tab 07/22/20 03/16/21 03/16/21 07:00 Rx tablet,extended release 24 hr nitroglycerin 0.4 mg sublingual 0.4 mg SUBLINGUAL Q5M PRN #30 tab 07/22/20 03/16/21 Unknown Rx tablet gemfibrozil 600 mg tablet 600 mg PO BID #180 tab 08/30/20 03/16/21 03/16/21 07:00 Rx albuterol sulfate 1 inh INHALATION QID PRN 11/14/20 03/16/21 Unknown History cholecalciferol (vitamin D3) 1,000 unit PO QAM 11/15/20 03/16/21 03/16/21 History amlodipine 2.5 mg tablet 2.5 mg PO QAM #90 tab 12/26/20 03/16/21 03/16/21 07:00 Rx clopidogrel 75 mg PO QAM 21 Days #21 tab 01/16/21 03/16/21 03/16/21 07:00 Rx hydrochlorothiazide 25 mg PO QAM 01/16/21 03/16/21 03/16/21 07:00 History loratadine [Claritin] 10 mg PO DAILY PRN 01/16/21 03/16/21 Unknown History Adult Low Dose Aspirin 162 mg PO BEDTIME 03/16/21 03/16/21 03/15/21 History Vitamin B-12 1 tab PO QAM 03/16/21 03/16/21 03/16/21 History citalopram 20 mg PO QAM 03/16/21 03/16/21 03/16/21 07:00 History pantoprazole 40 mg PO BID 03/16/21 03/16/21 03/16/21 07:00 History Allergies Allergy/AdvReac Type Severity Reaction Status Date / Time atorvastatin [From Lipitor] Allergy pain Verified 03/16/21 13:55 Penicillins Allergy hives Verified 03/16/21 13:55 Sulfa (Sulfonamide Allergy rash Verified 03/16/21 13:55 Antibiotics) PFSH Acute PFSH: Medical History CAD (coronary artery disease) COPD (chronic obstructive pulmonary disease) Depression Hx-TIA (transient ischemic attack) Hyperlipidemia Hypertension Mucopurulent chronic bronchitis Primary osteoarthritis of left knee Surgical History H/O hysterectomy with oophorectomy History of appendectomy History of hip replacement left Hx of right coronary artery stent placement Stented coronary artery 11/17 Social History Smoking and tobacco status: never smoked Second hand smoke exposure: Yes Vitals/I&O/Wt Last Vital Signs Temp 98.3 F 03/16/21 13:46 Pulse 69 03/16/21 13:46 Resp 16 03/16/21 13:46 BP 161/79 03/16/21 13:46 Pulse Ox 98 03/16/21 13:46 Weight last 48 hrs Weight 74.843 kg Physical Exam Narrative: EXAM NARRATIVE: Patient was resting comfortably in the bed Saturating well on room air EOMI, PERRLA Nonfocal neuro exam NIH 0 No active chest pain No audible stridor or wheezing Sinus rhythm Abdomen soft Appropriate mood and affect No active distress Appears stated age Well-hydrated Data : 03/16/21 14:41 03/16/21 14:41 A&P Assessment and plan (1) Syncope and collapse: Status: Acute Additional A&P Information Syncope and collapse Patient is describing dizziness as lightheadedness No active strokelike symptoms No signs of vertigo On and off chest pain in the past Established cardiac disease We will request Lexiscan stress test in the morning No need to repeat echo which was done recently Her recent MRI head was unremarkable B12 414 We will check TSH level, prolactin Troponin trending down EKG showing sinus rhythm with PVCs If stress test is negative we will discharge her with event monitor and follow- up with Dr. Cleary Cardiac diet, n.p.o. after midnight DVT prophylaxis on board She has been compliant with her aspirin, Plavix and gemfibrozil Attestations Medical Necessity Statement*: Anticipating discharge tomorrow Time Spent in Patient Care: Greater than 35 minutes Coding Level of Care Code Acute Software Reverse Engineer for Rajat Fwdebra Diagnoses Syncope and collapse R55
[2021-03-16] MEDS: iodixanol 320 mg/mL 100mL Btl IV ×2 (15:42→20:55)
[2021-03-16 17:50] LABS: Troponin 5 2HR 12.33 ng/L (0-10)
[2021-03-16 17:52] LABS: Troponin 5 2HR Delta -0.67 ABS# (0-10)
[2021-03-16 18:22] LABS: NT Pro B Type Natriuretic Pept 59 pg/mL (0-450); Vitamin B12 414 pg/mL (232-1245)
--- NOTE | 2021-03-16 19:36 | ECG_ITS ---
[facility] Test Date: 2021-03-16 Pat Name: Donya Carpio Department: Room: 269 Gender: Female Hand Edger: : 1940 Requested By: Tiburcio Willis Order Number: [id number] Reading MD: Leah Cleary M.D. Measurements Intervals [place] Rate: 67 P: 64 UT: 163 QRS: 1 QRSD: 78 T: 54 QT: 354 QTc: 375 Interpretive Statements SINUS RHYTHM WITH OCCASIONAL SUPRAVENTRICULAR PREMATURE COMPLEXES LOW QRS VOLTAGE IN PRECORDIAL LEADS [QRS DEFLECTION < 1.0 mV IN CHEST LEADS] NONSPECIFIC T-WAVE ABNORMALITY Compared to ECG 03/16/2021 13:52:04 Low QRS voltage now present T-wave abnormality now present Myocardial infarct finding no longer present Electronically Signed On 03-18-2021 7:43:50 WEBBING TACKER by Leah Cleary M.D. [id number]
[2021-03-16 19:46] VITALS: BP 123/69; PULSE 63; RESP 18; TEMP 36.7; O2SAT 92
--- NOTE | 2021-03-16 20:02 | CTR_ITS ---
PROCEDURE INFORMATION: Exam: CT Angiography Head With Contrast, Arteriography Exam date and time: 03/16/2021 8:02 PM Age: 80 years old Clinical indication: Syncope and collapse TECHNIQUE: Imaging protocol: Computed tomography angiography of the head with contrast. Exam focused on the arteries. 3D rendering (Not supervised by radiologist): MIP and/or 3D reconstructed images were created by the technologist. Radiation optimization: All CT scans at this facility use at least one of these dose optimization techniques: automated exposure control; mA and/or kV adjustment per patient size (includes targeted exams where dose is matched to clinical indication); or iterative reconstruction. Contrast material: VISI 320; Contrast volume: 95 ml; Contrast route: INTRAVENOUS (IV); COMPARISON: CT head wo con* [id number] 03/16/2021 3:35 PM RADIATION DOSE METRICS: Total DLP (mGy-cm): 2331.22 FINDINGS: ANTERIOR CIRCULATION: Right internal carotid artery: There is moderate atherosclerotic disease in the cavernous portion of the right internal carotid artery without significant stenosis. Right middle cerebral artery: Unremarkable. No occlusion or significant stenosis. No aneurysm. Right anterior cerebral artery: Unremarkable. No occlusion or significant stenosis. No aneurysm. Left internal carotid artery: There is focal tortuosity and ectasia of the supraclinoid left internal carotid artery measuring up to 5 mm diameter. There is no discrete saccular aneurysm. There is moderate atherosclerotic disease in the cavernous portion of the left internal carotid artery without significant stenosis. Left middle cerebral artery: Unremarkable. No occlusion or significant stenosis. No aneurysm. Left anterior cerebral artery: Unremarkable. No occlusion or significant stenosis. No aneurysm. POSTERIOR CIRCULATION: Right vertebral artery: Unremarkable. No occlusion or significant stenosis. No aneurysm. Left vertebral artery: Unremarkable. No occlusion or significant stenosis. No aneurysm. Basilar artery: Unremarkable. No occlusion or significant stenosis. No aneurysm. Right posterior cerebral artery: Unremarkable. No occlusion or significant stenosis. No aneurysm. Left posterior cerebral artery: Unremarkable. No occlusion or significant stenosis. No aneurysm. Veins: Dural venous sinuses are patent. Brain: There is diffuse cerebral atrophy and chronic microvascular white matter disease. Cerebral ventricles: There is mild ex vacuo dilation of the lateral ventricles. The basal cisterns are unremarkable. Bones/joints: The calvarium is intact. Mastoid air cells: The mastoid air cells are clear. Soft tissues: Unremarkable. Paranasal sinuses: The paranasal sinuses are clear. PROCEDURE INFORMATION: Exam: CT Angiography Neck With Contrast Exam date and time: 03/16/2021 8:02 PM Age: 80 years old Clinical indication: Syncope and collapse TECHNIQUE: Imaging protocol: Computed tomography angiography of the neck with contrast. 3D rendering (Not supervised by radiologist): MIP and/or 3D reconstructed images were created by the technologist. Radiation optimization: All CT scans at this facility use at least one of these dose optimization techniques: automated exposure control; mA and/or kV adjustment per patient size (includes targeted exams where dose is matched to clinical indication); or iterative reconstruction. Contrast material: VISI 320; Contrast volume: 95 ml; Contrast route: INTRAVENOUS (IV); COMPARISON: CT head wo con* [id number] 03/16/2021 3:35 PM RADIATION DOSE METRICS: Total DLP (mGy-cm): 2331.22 FINDINGS: Right common carotid artery: No stenosis. No dissection or occlusion. Right internal carotid artery: Retropharyngeal course of the right internal carotid artery. No stenosis. Right external carotid artery: No occlusion or stenosis of the origin. Left common carotid artery: No stenosis. No dissection or occlusion. Left internal carotid artery: Retropharyngeal course of the left internal carotid artery. No stenosis. Left external carotid artery: No occlusion or stenosis of the origin. Right vertebral artery: No stenosis. No dissection or occlusion. Left vertebral artery: No stenosis. No dissection or occlusion. Lymph nodes: There are enlarged lymph nodes in the upper mediastinum. Soft tissues: Soft tissues in the neck and thoracic inlet are unremarkable. Bones/joints: There is moderate degenerative disc disease in the cervical spine. Lungs: Lung apices are clear. CT/CT angio headneck* [id number] IMPRESSION: No arterial stenosis, occlusion or aneurysm. IMPRESSION: 1. No arterial stenosis, occlusion or dissection. 2. Nonspecific upper mediastinal lymph node enlargement. REFERENCES: NASCET CRITERIA. The degree of internal carotid artery stenosis is based on NASCET criteria. Normal is no stenosis. Mild is less than 50% stenosis. Moderate is 50-69% stenosis. Severe is 70% to 99% stenosis. Total occlusion is no detectable patent lumen.
--- NOTE | 2021-03-16 20:03 | ECG_ITS ---
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 The perfusion scan will be documented separately. DATA: Baseline heart rate was 73 beats per minute. Baseline blood pressure was 145/71 millimeters of mercury. Target heart rate was 139. Maximum heart rate achieved was 86. which was 61 % of the predicted target heart rate. Maximum blood pressure was 148/92 millimeters of mercury. The reason for ending the test was completion of the protocol. The patient did not experience any symptoms. ELECTROCARDIOGRAM: BASELINE: Sinus rhythm. Normal axis. Incomplete right bundle branch block, PACs, no ST-T changes suggestive of ischemia noted. No arrhythmia noted. EXERCISE: After Lexiscan injection, no ST-T changes suggestive of ischemic noted. No arrhythmia noted. CONCLUSION: Please note due to baseline abnormality of the EKG specificity and sensitivity of the EKG portion of LexiScan MIBI stress test will be low 1. EKG not suggestive of ischemia 2. Lexiscan injection unremarkable. 3. Perfusion scan will be documented separately. Electronically Signed On 03-21-2021 21:45:10 SET UP MECHANIC STAMPING MACHINES by ROBER MELGOZA [id number]
[2021-03-16] MEDS: gemfibrozil 600 mg Tablet PO (20:05)
[2021-03-16] MEDS: aspirin 81 mg EC Tablet 162 MG PO (20:05)
[2021-03-16] MEDS: isosorbide mononitrate ER 60 mg Tablet 30 MG PO (20:05)
[2021-03-16 21:12] VITALS: PULSE 66; RESP 18; O2SAT 96
[2021-03-16 21:14] LABS: Troponin 5 6HR 10.37 ng/L (0-10); Troponin 5 6HR Delta -2.63 ng/L (0-12)
[2021-03-16 23:25] VITALS: BP 107/56; PULSE 61; RESP 18; TEMP 36.6; O2SAT 93
[2021-03-17 04:07] VITALS: BP 105/60; PULSE 61; RESP 16; TEMP 36.5; O2SAT 95
[2021-03-17] MEDS: amlodipine 5 mg Tablet 2.5 MG PO (06:15)
[2021-03-17] MEDS: clopidogrel 75 mg Tablet PO (06:15)
[2021-03-17] MEDS: hydroCHLOROthiazide 25 mg Tablet PO (06:15)
[2021-03-17] MEDS: citalopram 20 mg Tablet PO (06:15)
[2021-03-17 06:36] LABS: Basophils % 0.7 %; Eosinophils # 0.5 10^3/uL (0.0-0.8); Eosinophils % 8.5 %; Hematocrit 36.6 % (37.0-47.0); Hemoglobin 11.7 g/dL (11.5-15.3); Lymphocytes % 35.9 %; Mean Corpuscular Volume 90.6 fl (81-99); Mean Platelet Volume 11.6 fL (7.4-10.4); Monocytes # 0.5 10^3/uL (0.2-0.9); Monocytes % 8.2 %; Neutrophils # 2.58 10^3/uL (1.8-7.7); Nucleated Red Blood Cells % 0 %; Platelet Count 315 10^3/cmm (130-400); Red Blood Count 4.04 10^6/uL (4.1-5.3); Red Cell Distribution Width 14.1 % (12.1-15.1); White Blood Count 5.6 10^3/uL (4.0-10.0)
[2021-03-17 07:01] LABS: Anion Gap 19.5 (5-19); Blood Urea Nitrogen 19 mg/dL (8-23); Calcium 9.2 mg/dL (8.5-10.5); Carbon Dioxide 20 mmol/L (22-29); Chloride 101 mmol/L (98-107); Glucose 101 mg/dL (65-115); Magnesium 1.7 mg/dL (1.7-2.3); Osmolality Calculated 286 mOsm/kg (285-295); Potassium 3.5 mmol/L (3.5-5.1); Sodium 137 mmol/L (136-145)
[2021-03-17 07:04] LABS: Thyroid Stimulating Hormone 1.76 uIU/mL (0.27-4.20)
[2021-03-17 07:06] LABS: Prolactin 29.81 ng/mL (4.8-23.3)
[2021-03-17 08:00] VITALS: BP 148/72; PULSE 68; RESP 17; TEMP 37.1; O2SAT 98
[2021-03-17] MEDS: regadenoson 0.4 Mg/5 ml Syringe IVP (08:08)
[2021-03-17 08:26] VITALS: BP 133/88; PULSE 76
[2021-03-17] MEDS: gemfibrozil 600 mg Tablet PO (10:17)
[2021-03-17] MEDS: isosorbide mononitrate ER 60 mg Tablet 30 MG PO (10:17)
[2021-03-17 11:35] VITALS: BP 151/63; PULSE 68; RESP 17; TEMP 36.5; O2SAT 92
--- NOTE | 2021-03-17 13:13 | P.DS_ITS ---
Discharge Providers Date of Admission: 03/16/21 15:45 Date of Discharge: March 17, 2021 Attending Provider at Admission: Rober Angeles MD Attending Provider at Discharge: Rober Angeles MD Primary Care Provider: SIVAKUMAR Holloway Diagnoses at Discharge Discharge Diagnosis (1) Syncope and collapse: Status: Acute Reason for Visit Reason for Visit: DIZZY WITH RECENT SYNCOPALS Hospital Course Hospital Course Patient was admitted for management and evaluation of syncopal event. Patient had 1 syncopal event when she was feeling better coffee mug near her sink in the kitchen. This happened 40 hours before her presentation to the ER. She did not want to tell her family about this however her daughter found about it next day and sent her to the ER. During her hospitalization stress test was requested along CTA head and neck. Both were unremarkable. Telemetry showed sinus rhythm her blood pressure remained stable. She did not experience recurrence of symptoms. Her previous MRI head and CT scan were unremarkable. TSH, B12 normal. She will be discharged home with 21-day event monitor to detect any cardiac arrhythmia to be the etiology of recurrent syncopal events. Her neuro exam was unremarkable. 2 daughters were at the bedside at the time of discharge, all of their questions were answered to their satisfaction. She does not have any QTC prolongation nor neurological deficits. Malignant arrhythmia should be ruled out. She will follow up with Dr. Cleary. Her echo was not repeated as it was done recently. She has been compliant with her medications I would continue her aspirin and Plavix. Physical Exam Narrative: EXAM NARRATIVE: Patient is comfortably laying in her bed Saturating well on room air S1, S2 NIH 0 EOMI, PERRLA Awake alert oriented x3 GCS 15 S1, S2 no signs of murmurs Abdomen soft Lower extremity no edema No cognitive impairment No audible stridor or wheezing Discharge Data Data Completed and Pending: Completed Studies During Hospitalization Category Date Time Status CT abdomen pelvis w con* [id number] Urge nt Cat Scan 03/16/21 14:[address] angio headneck * [id number] Rout ine Cat Scan 03/16/21 20:[address] head wo con* [id number] Urgent Cat Scan 03/16/21 14:14 Completed Sestamibi Stress Test Request Routi ne Exams 03/16/21 20:03 Draft NM lisa perf SPECT r/s* [id number] Routin e Nuc Med 03/17/21 20:03 Completed Labs from last 24 hours 03/17/21 03/17/21 03/17/21 05:05 05:05 05:05 WBC RBC Hgb Hct MCV MCH MCHC RDW Plt Count MPV Neut % (Auto) Lymph % (Auto) [place] % (Auto) Eos % (Auto) Baso % (Auto) Neut # (Auto) Lymph # (Auto) [place] # (Auto) Eos # (Auto) Baso # (Auto) Nucleated RBC % (a uto) Nucleated RBCs # Sodium 137 Potassium 3.5 Chloride 101 Carbon Dioxide 20 L Anion Gap 19.5 H BUN 19 Creatinine 1.1 H GFR Calculation Not Reportable Glucose 101 Calculated Osmolal ity 286 Calcium 9.2 Magnesium 1.7 Troponin T Baselin e Troponin T 120 Min [place] Delta Troponin T Troponin T Hi Sens 6Hr Troponin T Hi Sens 6Hr Delta NT-Pro-B Natriuret Pep Vitamin B12 TSH 1.76 Prolactin 29.81 H 03/17/21 03/16/21 03/16/21 05:05 20:37 17:00 WBC 5.6 RBC 4.04 L Hgb 11.7 Hct 36.6 L MCV 90.6 MCH 29.0 MCHC 32.0 RDW 14.1 Plt Count 315 MPV 11.6 H Neut % (Auto) 46.0 Lymph % (Auto) 35.9 [place]ingo % (Auto) 8.2 Eos % (Auto) 8.5 Baso % (Auto) 0.7 Neut # (Auto) 2.58 Lymph # (Auto) 2.0 [place] # (Auto) 0.5 Eos # (Auto) 0.5 Baso # (Auto) 0.0 Nucleated RBC % (a uto) 0 Nucleated RBCs # 0.0 Sodium Potassium Chloride Carbon Dioxide Anion Gap BUN Creatinine GFR Calculation Glucose Calculated Osmolal ity Calcium Magnesium Troponin T Baselin e Troponin T 120 Min [place] Delta Troponin T Troponin T Hi Sens 6Hr 10.37 H Troponin T Hi Sens 6Hr Delta -2.63 L NT-Pro-B Natriuret Pep 59 Vitamin B12 414 TSH Prolactin 03/16/21 03/16/21 03/16/21 17:00 14:41 14:41 WBC RBC Hgb Hct MCV MCH MCHC RDW Plt Count MPV Neut % (Auto) Lymph % (Auto) [place] % (Auto) Eos % (Auto) Baso % (Auto) Neut # (Auto) Lymph # (Auto) [place] # (Auto) Eos # (Auto) Baso # (Auto) Nucleated RBC % (a uto) Nucleated RBCs # Sodium 141 Potassium 3.8 Chloride 100 Carbon Dioxide 22 Anion Gap 22.8 H BUN 21 Creatinine 1.2 H GFR Calculation Not Reportable Glucose 94 Calculated Osmolal ity 295 Calcium 9.7 Magnesium Troponin T Baselin e 13 H Troponin T 120 Min [place] 12.33 H Delta Troponin T -0.67 L Troponin T Hi Sens 6Hr Troponin T Hi Sens 6Hr Delta NT-Pro-B Natriuret Pep Vitamin B12 TSH Prolactin 03/16/21 14:41 WBC 6.3 RBC 4.37 Hgb 12.9 Hct 39.8 MCV 91.1 MCH 29.5 MCHC 32.4 RDW 14.3 Plt Count 339 MPV 11.2 H Neut % (Auto) 51.5 Lymph % (Auto) 35.6 Mingo % (Auto) 6.2 Eos % (Auto) 5.8 Baso % (Auto) 0.6 Neut # (Auto) 3.26 Lymph # (Auto) 2.3 Mingo # (Auto) 0.4 Eos # (Auto) 0.4 Baso # (Auto) 0.0 Nucleated RBC % (a uto) 0 Nucleated RBCs # 0.0 Sodium Potassium Chloride Carbon Dioxide Anion Gap BUN Creatinine GFR Calculation Glucose Calculated Osmolal ity Calcium Magnesium Troponin T Baselin e Troponin T 120 Min [place] Delta Troponin T Troponin T Hi Sens 6Hr Troponin T Hi Sens 6Hr Delta NT-Pro-B Natriuret Pep Vitamin B12 TSH Prolactin Vitals: Last Vital Signs Temp 97.7 F 03/17/21 11:35 Pulse 68 03/17/21 11:35 Resp 17 03/17/21 11:35 BP 151/63 03/17/21 11:35 Pulse Ox 92 03/17/21 11:35 Discharge Plan Discharge Patient Disposition: Home Condition: Stable Prescriptions: Continued (DME) HINGED KNEE BRACE See Rx Instructions .Route .MEDSUPPLY Qty: 1 RF: 0 isosorbide mononitrate 60 mg tablet extended release 24 hr 30 mg PO BID Qty: 90 RF: 2 nitroglycerin 0.4 mg tablet, sublingual 0.4 mg SUBLINGUAL Q5M PRN (Reason: chest pain) Qty: 30 RF: 3 gemfibrozil 600 mg tablet 600 mg PO BID Qty: 180 RF: 1 amlodipine 2.5 mg tablet 2.5 mg PO QAM Qty: 90 RF: 1 albuterol sulfate 90 mcg/actuation HFA aerosol inhaler 1 inh inhalation QID PRN (Reason: Shortness Of Breath) RF: 0 cholecalciferol (vitamin D3) 25 mcg (1,000 unit) capsule 1,000 unit PO QAM RF: 0 hydrochlorothiazide 25 mg tablet 25 mg PO QAM RF: 0 loratadine [Claritin] 10 mg Tablet 10 mg PO DAILY PRN (Reason: Allergy Symptoms) RF: 0 clopidogrel 75 mg tablet 75 mg PO QAM 21 Days Qty: 21 RF: 0 Vitamin B-12 1 tab PO QAM RF: 0 Adult Low Dose Aspirin 81 mg tablet,delayed release (DR/EC) 162 mg PO BEDTIME RF: 0 citalopram 20 mg tablet 20 mg PO QAM RF: 0 pantoprazole 40 mg tablet,delayed release (DR/EC) 40 mg PO BID RF: 0 Discharge Orders: Discharge Order (Routine); Ordered 03/17/21 Ordered By: Rober Angeles Other Ambulatory Orders: [place] cardiac event monitor (Routine) Timeframe: 21 Days Facility: [facility] - Location: Cardiac Diagnostic Laboratory Ordered By: Rober Angeles Referrals: Abbey Oh FNP [Primary Care Provider] - 03/22/21 10:30 am () Leah Cleary MD [Physician] - 4-7 days (Please call Saturday to schedule appointment) Patient Instructions: Syncope, COPD (Chronic Obstructive Pulmonary Disease) (DC), COPD Stoplight, Opioid Safety Discharge Attestations Time Spent in Discharge Care*: less than 30 min Quality Metrics Clinical Quality Measures During this hospital stay, did patient experience: None Coding Level of Care Code Acute Chg FW DC note Diagnoses Syncope and collapse R55
[2021-03-17 14:45] VITALS: BP 151/63; PULSE 68; RESP 17; TEMP 36.5; O2SAT 92
--- NOTE | 2021-03-17 15:07 | PC.CHAP ---
Pastoral Care Encounter/Spiritual Assessment Type of Contact [] Declined splunk dashboard developer visit [] Patient/Family/Request visit [] Outpatient visit [] Follow-up visit [] Physician referral [] Code/Alert [] Routine visit [] Staff referral [] Actively dying [] Patient sleeping [] Family support [] [] Out of room [] Palliative care [] [xx] Receiving care in room [] Pre-surgical visit [] Trauma [] Long length of stay [] ICU visit [] Other: Relational/Emotional Strength [] Patient feels connected with others/family/visitors/staff [] Distress [] Loneliness/isolation [] Abandonment Spirituality of Patient [] Person of Teri [] Attends Islam of their Teri [] Believes in Prayer [] Reads Bible or Buddhist materials [] There are Spiritual issues to be addressed Manufacturing Mechanic Interventions [] Prayer [] Active listening [] Non-anxious presence [] Spiritual/emotional support [] Crisis/trauma care [] Spiritual counseling [] Bereavement support [] Provided bereavement packet [] Provided Bible/devotional materials [] Provided toy/stuffed animal, coloring book to patient or family member [] Provided Communion [] Anointing/[place] [] Salvation [] Completed spiritual assessment [] Other: Impact on Illness or Injury [] Angry [] Fearful [] Anxious [] Often cries [] Exhaustion [] Unable to work [] Unable to attend hinduism [] Unable to walk/stand [] Unable to read [] Unable to drive [] Unable to eat/drink [] Unable to sleep [] Unable to be with family [] Patient intubated [] Other: Summary Time spent with patient
--- NOTE | 2021-03-17 20:03 | NMCV_ITS ---
NM lisa perf SPECT r/s* [id number] Donya Carpio Age: 80 Gender: F : 1940 Exam Date: 03/17/2021 07:07 Ordering Phys: Rober Angeles MD Technologist: LORI Guillen Exam Location: [facility] Indications: DIZZINESS WITH SYNCOPE STRESS TEST Please see separate stress test report in [facility] for full findings IMAGE PROTOCOL Rest/Stress 1 Lexiscan Day Radiopharmaceutical Dose (mCi) Administration Site Administered by Rest: Tc-99m 10.7 IV LORI Patterson Sestamibi Stress:Tc-99m 32.1 IV LORI Patterson Sestamibi Rest: 17-Mar-2021 60 Discovery 630 Stress: 17-Mar-2021 30 Discovery 630 0.4mg Lexiscan. Images obtained in supine and prone position. SPECT RESULTS Technical Quality: Excellent Raw Data Analysis: Normal Image Corrections: No attenuation or motion correction applied Summed Stress Score: 3 Summed Rest Score: 4 Summed Difference Score: 1 PERFUSION FINDINGS Small area of fixed perfusion defect in the apex noted which appeared to be apical thinning artifact. FUNCTIONAL RESULTS (calculated via Gated SPECT) Stress Image LV EF (%): 77 Stress EDV (mL):69 TID: 1.05 Stress ESV (mL):16 Rest Image LV EF (%): 77 FUNCTIONAL FINDINGS: There is normal left ventricular systolic function. IMPRESSIONS Myocardial perfusion imaging is normal. Rober Hernandez MD (Electronically Signed) Final Date: 17 March 2021 12:57 S
== END 2021-03-17 14:45 | disposition home or self-care (01) ==
LOC: ER 14:17 → MEDSURG 16:50
PROVIDERS: Admitting Provider Internal Medicine; Emergency Provider Emergency Medicine; PCP Nurse Practitioner Family; Visit Provider Internal Medicine
DX: R55 Syncope and collapse (principal); I25.10 Atherosclerotic heart disease of native coronary artery without angina pectoris; J44.9 Chronic obstructive pulmonary disease, unspecified; E78.5 Hyperlipidemia, unspecified; I10 Essential (primary) hypertension; Z79.82 Long term (current) use of aspirin
CPT/HCPCS: 36415; 70450; 70496; 70498; 74177; 78452; 80048; 82607; 83735; 83880; 84146; 84443; 84484; 85025; 93005; 93017; 99285; A9500; G0378; J2785; J7040; Q9967

== ENCOUNTER → 2021-05-02 08:18 | Outpatient (BNVA) | payer MEDICARE, OTHER, SELFPAY | PROVIDERS: PCP Nurse Practitioner Family; Visit Provider Nurse Practitioner Family | DX: R39.9 Unspecified symptoms and signs involving the genitourinary system (principal); R31.9 Hematuria, unspecified | CPT/HCPCS: 81000; 87077; 87086; 87184 ==

== ENCOUNTER → 2021-05-11 10:16 | Outpatient (BNVA) | payer MEDICARE, OTHER, SELFPAY | PROVIDERS: PCP Nurse Practitioner Family; Visit Provider Nurse Practitioner Family | DX: R31.9 Hematuria, unspecified (principal); R39.9 Unspecified symptoms and signs involving the genitourinary system; N39.0 Urinary tract infection, site not specified | CPT/HCPCS: 81003; 87077; 87086; 87184 ==

== ENCOUNTER 2021-05-15 16:10 | Emergency (ER) | payer MEDICARE, OTHER, SELFPAY ==
[2021-05-15 17:39] VITALS: BP 107/64; PULSE 62; RESP 16; TEMP 36.7; O2SAT 92; BMI 30.2
--- NOTE | 2021-05-15 17:50 | XRR_ITS ---
PROCEDURE INFORMATION: Exam: XR Chest Exam date and time: 05/15/2021 5:50 PM Age: 80 years old Clinical indication: Fever; Additional info: Fever, fatigue TECHNIQUE: Imaging protocol: XR of the chest. Views: 1 view. COMPARISON: No relevant prior studies available. FINDINGS: Lungs: Pulmonary vascularity is within normal limits. There is some hazy density in the periphery of the mid to lower left lung concerning for early pneumonic infiltrate. No consolidation. Pleural spaces: Unremarkable. No pleural effusion. No pneumothorax. Heart/Mediastinum: There is cardiomegaly. Bones/joints: No acute abnormality. XR/XR chest 1V portable [id number] IMPRESSION: Probable early pneumonic infiltrate in the mid to lower left lung. The right lung is clear.
--- NOTE | 2021-05-15 17:52 | ED_ITS ---
HPI - General Adult General: Chief complaint: General Medical Stated complaint: Fever\Lathargic\Low Blood Presures\ Time Seen by Provider: 05/15/21 17:50 History of Present Illness: 80-year-old female comes in today with complaints of fever and lethargy for the last 3 to 4 days. Patient has been being treated with antibiotics for recurrent urinary tract infection for the last 3 weeks Patient was recently started on Macrodantin for her UTI. Daughter reports for the past 2 to 3 days she has noticed weakness in poor appetite. Patient appears mildly unwell but not toxic. Patient appears no acute distress. Onset (ago): day(s) Review of Systems Const: Reports: fatigue Resp: Reports: non-productive cough : Reports: difficulty voiding Neuro: Reports: weakness in extremities PFSH ED PFSH: Medical History CAD (coronary artery disease) COPD (chronic obstructive pulmonary disease) Depression Hx-TIA (transient ischemic attack) Hyperlipidemia Hypertension Mucopurulent chronic bronchitis Primary osteoarthritis of left knee Surgical History H/O hysterectomy with oophorectomy History of appendectomy History of hip replacement left Hx of right coronary artery stent placement Stented coronary artery 11/17 Social History Smoking and tobacco status: never smoked Second hand smoke exposure: Yes Physical Exam Const: COMMON NORMALS: alert HENMT: COMMON NORMALS: atraumatic HEAD & SCALP: atraumatic Resp: COMMON NORMALS: normal respiratory effort AUSCULTATION: diminished lung sounds Cardio: COMMON NORMALS: regular rate and regular rhythm RATE: regular rate RHYTHM: regular rhythm GI: COMMON NORMALS: Soft to palpation and non-tender PALPATION: Yes Soft to palpation Extremity: COMMON NORMALS: normal to inspection Neuro: SENSORIUM/ORIENTATION: Yes alert Psych: COMMON NORMALS: cooperative Skin: COMMON NORMALS: no rashes or lesions noted GENERAL SKIN EXAM: no rashes or lesions noted Course Vital Signs: Vital signs: Vital Signs Temperature 98.1 F 05/15/21 17:39 Pulse Rate 62 05/15/21 17:39 Respiratory Rate 16 05/15/21 17:39 Blood Pressure 107/64 05/15/21 17:39 Pulse Oximetry 92 05/15/21 17:39 MDM - General Adult Medical Decision Making 80-year-old female comes in with weakness for about 1 week. Patient has had a urinary tract infection and has been treated with 2 antibiotics already. Patient was recently been started on Macrodantin but has yet to start the medication. Patient appears mildly unwell but not toxic. Respirations are even, lungs are diminished in the bases. Heart rates regular. Vital signs are normal. Differential diagnosis includes but not limited to urosepsis, pneumonia, viral syndrome. Chest x-ray notes a patchy infiltrate in the left lower lung, COVID-19 test was positive, urinalysis had too numerous to count wh ite blood cells. CBC had a white blood cell count 5000, mild anemia with a hemoglobin of 11, CMP showed 132 sodium, 3.0 potassium, creatinine increased to 1.6 suggesting some mild dehydration. Patient was given 1 L of IV fluid. We treated patient's potassium with 40 mg of potassium p.o., patient was given 1 dose of ceftriaxone for urinary tract infection which compared to culture results was susceptible. Patient will continue on the Macrodantin as ordered. 1 L of IV fluid was given to patient for mild dehydration. Reviewed exam with patient and family who agreed to plan and need for follow-up or return to the ER. Prior to discharge it was noted that patient did have some mild hypoxia which dropped to 8889% on room air. I ordered home O2 for patient. Patient has a history of requiring home oxygen but often refuses to wear it. Daughter said that she would work with patient to get her to wear the oxygen. Lab Data : 05/15/21 20:01 05/15/21 20:01 Radiology Impressions Chest X-Ray 05/15/21 17:50 IMPRESSION: Probable early pneumonic infiltrate in the mid to lower left lung. The right lung is clear. Laboratory Results WBC 5.0 10^3/uL (4.0-10.0) 05/15/21 20:01 RBC 3.92 10^6/uL (4.1-5.3) L 05/15/21 20:01 Hgb 11.4 g/dL (11.5-15.3) L 05/15/21 20:01 Hct 34.6 % (37.0-47.0) L 05/15/21 20:01 MCV 88.3 fl (81-99) 05/15/21 20: MCH 29.1 pg (28.0-34.0) 05/15/21 20: MCHC 32.9 g/dL (30.0-36.0) 05/15/21 20: RDW 14.2 % (12.1-15.1) 05/15/21 20: Plt Count 308 10^3/cmm (130-400) 05/15/21 20: MPV 10.3 fL (7.4-10.4) 05/15/21 20: Neut % (Auto) 63.1 % 05/15/21 20: Lymph % (Auto) 25.0 % 05/15/21 20: Roberts % (Auto) 10.5 % 05/15/21 20: Eos % (Auto) 0.4 % 05/15/21 20: Baso % (Auto) 0.4 % 05/15/21 20: Neut # (Auto) 3.17 10^3/uL (1.8-7.7) 05/15/21 20: Lymph # (Auto) 1.3 10^3/uL (0.8-4.8) 05/15/21 20: Roberts # (Auto) 0.5 10^3/uL (0.2-0.9) 05/15/21 20: Eos # (Auto) 0.0 10^3/uL (0.0-0.8) 05/15/21 20: Baso # (Auto) 0.0 10^3/uL (0.0-0.1) 05/15/21 20: Nucleated RBC % (auto) 0 % 05/15/21 20: Nucleated RBCs # 0.0 /100WBC 05/15/21 20: Sodium 132 mmol/L (136-145) L 05/15/21 20: Potassium 3.0 mmol/L (3.5-5.1) L 05/15/21 20: Chloride 95 mmol/L (98-107) L 05/15/21 20: Carbon Dioxide 21 mmol/L (22-29) L 05/15/21 20: Anion Gap 19.0 (5-19) 05/15/21 20: BUN 26 mg/dL (8-23) H 05/15/21 20: Creatinine 1.6 mg/dL (0.5-0.9) H 05/15/21 20: GFR Calculation Not Reportable 05/15/21 20: Glucose 91 mg/dL (65-115) 05/15/21 20: Calculated Osmolality 278 mOsm/kg (285-295) L 05/15/21 20: Lactic Acid 1.1 mmol/L (0.5-2.2) 05/15/21 20: Calcium 9.4 mg/dL (8.5-10.5) 05/15/21 20: Total Bilirubin 0.4 mg/dL (0.15-1.2) 05/15/21 20: AST 34 U/L (0-32) H 05/15/21 20: ALT 12 U/L (0-33) 05/15/21 20: Alkaline Phosphatase 87 IU/L (35-105) 05/15/21 20: C-Reactive Protein 39.5 mg/L (0.0-4.9) H 05/15/21 20: Total Protein 7.4 g/dL (6.6-8.7) 05/15/21 20: Albumin 4.2 g/dL (3.5-5.2) 05/15/21 20: Globulin 3.2 g/dL (1.3-4.6) 05/15/21 20: Procalcitonin 0.10 ng/mL (0-0.5) 05/15/21 20: Urine Color Yellow (Yellow) 05/15/21 18:45 Urine Appearance Cloudy (CLEAR) 05/15/21 18:45 Urine pH 5 (5-7) 05/15/21 18:45 Ur Specific [place] 1.015 (1.005-1.030) 05/15/21 18:45 Urine Protein Trace (Negative) 05/15/21 18:45 Urine Glucose (UA) Norm (Normal) 05/15/21 18:45 Urine Ketones Negative (Negative) 05/15/21 18:45 Urine Blood Neg (Negative) 05/15/21 18:45 Urine Nitrate Negative (Negative) 05/15/21 18:45 Urine Bilirubin 1+ (Negative) H 05/15/21 18:45 Urine Urobilinogen Norm mg/dL (Negative) 05/15/21 18:45 Ur Leukocyte Esterase 2+ (Negative) H 05/15/21 18:45 Urine RBC 0-4 /hpf (0-2) H 05/15/21 18:45 Urine WBC >100 /hpf (0-5) H 05/15/21 18:45 Ur Squamous Epith Cells 5-10 /hpf (0-5) H 05/15/21 18:45 Amorphous Sediment Not Reportable 05/15/21 18:45 Urine Bacteria 4+ /hpf (NONE) H 05/15/21 18:45 Influenza Type A Ag Negative (Negative) 05/15/21 18:35 Influenza Type B Ag Negative (Negative) 05/15/21 18:35 SARS-CoV-2 Ag (Rapid) Positive (Negative) H 05/15/21 18:35 Discharge Plan Discharge Patient Disposition: Home Clinical Impression: COVID-19, Bacterial UTI, Dehydration Condition: Stable Prescriptions: New ondansetron 4 mg tablet,disintegrating 4 mg PO TID PRN (Reason: nausea and vomiting) Qty: 10 0RF No Action (DME) HINGED KNEE BRACE See Rx Instructions .Route .MEDSUPPLY Qty: 1 0RF Rx Instructions: As directed nitroglycerin 0.4 mg tablet, sublingual 0.4 mg SUBLINGUAL Q5M PRN (Reason: chest pain) Qty: 30 3RF ciprofloxacin HCl [Cipro] 500 mg tablet 500 mg PO BID 7 Days Qty: 14 0RF amlodipine 2.5 mg tablet 2.5 mg PO QAM Qty: 90 1RF gemfibrozil 600 mg tablet See Rx Instructions .ROUTE .COMPLEX Qty: 180 0RF Dose Instruction: TAKE 1 TABLET BY MOUTH TWICE DAILY Rx Instructions: TAKE 1 TABLET BY MOUTH TWICE DAILY isosorbide mononitrate 60 mg tablet extended release 24 hr 30 mg PO BID Qty: 90 2RF Rx Instructions: 340b nitrofurantoin monohyd/m-cryst [Macrobid] 100 mg capsule 100 mg PO BID Qty: 10 0RF Rx Instructions: must administer with a meal/food albuterol sulfate 90 mcg/actuation HFA aerosol inhaler 1 inh inhalation QID PRN (Reason: Shortness Of Breath) 0RF Label Comments: Has not been using recently cholecalciferol (vitamin D3) 25 mcg (1,000 unit) capsule 1,000 unit PO QAM 0RF hydrochlorothiazide 25 mg tablet 25 mg PO QAM 0RF loratadine [Claritin] 10 mg Tablet 10 mg PO DAILY PRN (Reason: Allergy Symptoms) 0RF clopidogrel 75 mg tablet 75 mg PO QAM 21 Days Qty: 21 0RF Vitamin B-12 1 tab PO QAM 0RF Adult Low Dose Aspirin 81 mg tablet,delayed release (DR/EC) 162 mg PO BEDTIME 0RF citalopram 20 mg tablet 20 mg PO QAM 0RF pantoprazole 40 mg tablet,delayed release (DR/EC) 40 mg PO BID 0RF Discharge Orders: Discharge ED (Routine); Ordered 05/15/21 Ordered By: Juanito España Other Ambulatory Orders: DME: Oxygen (Order) Location: None Selected Ordered By: Juanito España Referrals: Abbey Oh FNP [Primary Care Provider] - Discharge Diet: Usual diet Patient Instructions: COVID-19 (Coronavirus Disease 2019) (ED) Activity Restrictions/Additional Instructions: Drink at least 2 L of fluid a day. Use acetaminophen and ibuprofen for discomfort. Take medications as directed. Follow-up with primary care in 3 days. Return to the ER for increasing shortness of breath, chest pain, or new concerns. Coding Level of Care Code ED Tool Planer Set Up Operator for Rajat Fwdebra Exam Comprehensive
[2021-05-15 19:05] LABS: Influenza A by IFA Negative (Negative); Influenza B by IFA Negative (Negative); SARS Covid-2 Antigen Positive (Negative)
[2021-05-15] MEDS: sodium chloride 0.9% 1,000 ML 999 ML IV (19:58)
[2021-05-15 20:10] LABS: Basophils % 0.4 %; Eosinophils % 0.4 %; Hematocrit 34.6 % (37.0-47.0); Hemoglobin 11.4 g/dL (11.5-15.3); Lymphocytes # 1.3 10^3/uL (0.8-4.8); Mean Corpuscular HGB Conc 32.9 g/dL (30.0-36.0); Mean Corpuscular Hemoglobin 29.1 pg (28.0-34.0); Mean Corpuscular Volume 88.3 fl (81-99); Mean Platelet Volume 10.3 fL (7.4-10.4); Monocytes # 0.5 10^3/uL (0.2-0.9); Monocytes % 10.5 %; Neutrophils # 3.17 10^3/uL (1.8-7.7); Neutrophils % 63.1 %; Nucleated Red Blood Cells % 0 %; Platelet Count 308 10^3/cmm (130-400); Red Blood Count 3.92 10^6/uL (4.1-5.3); Red Cell Distribution Width 14.2 % (12.1-15.1)
[2021-05-15 20:44] LABS: Alanine Aminotransferase 12 U/L (0-33); Albumin Level 4.2 g/dL (3.5-5.2); Alkaline Phosphatase 87 IU/L (35-105); Aspartate Amino Transferase 34 U/L (0-32); Blood Urea Nitrogen 26 mg/dL (8-23); C Reactive Protein 39.5 mg/L (0.0-4.9); Calcium 9.4 mg/dL (8.5-10.5); Carbon Dioxide 21 mmol/L (22-29); Chloride 95 mmol/L (98-107); Globulin 3.2 g/dL (1.3-4.6); Glucose 91 mg/dL (65-115); Osmolality Calculated 278 mOsm/kg (285-295); Sodium 132 mmol/L (136-145); Total Bilirubin 0.4 mg/dL (0.15-1.2); Total Protein 7.4 g/dL (6.6-8.7)
[2021-05-15 20:45] LABS: Lactic Sepsis W/Reflex 1.1 mmol/L (0.5-2.2)
[2021-05-15 21:50] LABS: Add Urine Microscopic? YES; Bilirubin Urine 1+ (Negative); Blood Urine Neg (Negative); Glucose Urine UA Norm (Normal); Ketones Urine Negative (Negative); Leukocyte Esterase Urine 2+ (Negative); Nitrate Urine Negative (Negative); Protein Urine Trace (Negative); Specific Gravity, Urine 1.015 (1.005-1.030); Urine Appearance Cloudy (CLEAR); Urine Color Yellow (Yellow); Urobilinogen Urine Norm (Negative); pH Urine 5 (5-7)
[2021-05-15 21:51] LABS: Add Urine Culture? No; Bacteria Urine 4+ /hpf; RBC Urine 0-4 /hpf (0-2); WBC Urine >100 /hpf (0-5)
[2021-05-15] MEDS: potassium chloride ER 20 mEq Tablet 40 MEQ PO (22:35)
== END 2021-05-15 23:54 | disposition home or self-care (01) ==
PROVIDERS: Emergency Provider Nurse Practitioner Family; PCP Nurse Practitioner Family
DX: U07.1 COVID-19 (principal); N39.0 Urinary tract infection, site not specified; B96.89 Other specified bacterial agents as the cause of diseases classified elsewhere; E86.0 Dehydration; Z79.02 Long term (current) use of antithrombotics/antiplatelets; Z79.82 Long term (current) use of aspirin; I25.10 Atherosclerotic heart disease of native coronary artery without angina pectoris; J44.9 Chronic obstructive pulmonary disease, unspecified; Z86.73 Personal history of transient ischemic attack (TIA), and cerebral infarction without residual deficits; E78.5 Hyperlipidemia, unspecified; I10 Essential (primary) hypertension; Z77.22 Contact with and (suspected) exposure to environmental tobacco smoke (acute) (chronic)
CPT/HCPCS: 71045; 80053; 81001; 83605; 84145; 85025; 86140; 87040; 87077; 87086; 87186; 87426; 87804; 96360; 99283; J7030

== ENCOUNTER → 2021-06-15 11:19 | Outpatient (BNVA) | payer MEDICARE, OTHER, SELFPAY | PROVIDERS: PCP Nurse Practitioner Family; Visit Provider Internal Medicine Cardiovascular Disease | DX: E78.2 Mixed hyperlipidemia (principal); I25.10 Atherosclerotic heart disease of native coronary artery without angina pectoris; I10 Essential (primary) hypertension | CPT/HCPCS: 80053; 80061; 99214 ==

== ENCOUNTER 2021-07-17 16:29 | Emergency (ER) | payer MEDICARE, OTHER, SELFPAY ==
[2021-07-17 16:53] VITALS: BP 161/63; PULSE 76; RESP 18; TEMP 36.5; O2SAT 98; BMI 29.7
--- NOTE | 2021-07-17 17:02 | XRR_ITS ---
PROCEDURE INFORMATION: Exam: XR Right Hip Exam date and time: 07/17/2021 5:47 PM Age: 80 years old Clinical indication: Hip pain; Right hip; Additional info: R hip pain, fall today TECHNIQUE: Imaging protocol: XR Right hip. Views: 1 view hip with pelvis when performed. COMPARISON: CT abdomen pelvis w con* [id number] 03/16/2021 3:39 PM FINDINGS: Bones/joints: Moderate right hip osteoarthritis. Soft tissues: Unremarkable. Vasculature: Scattered vascular calcifications XR/XR hip RT 2-3V wo/w pel* [id number] IMPRESSION: 1. Negative for fracture or dislocation, decreased bone mineral density somewhat limits evaluation, if clinical concern for fracture remains consider further evaluation with a CT scan. 2. Moderate right hip osteoarthritis.
--- NOTE | 2021-07-17 17:02 | CTR_ITS ---
PROCEDURE INFORMATION: Exam: CT Cervical Spine Without Contrast Exam date and time: 07/17/2021 5:17 PM Age: 80 years old Clinical indication: Injury or trauma; Fall; Concussion/head injury TECHNIQUE: Imaging protocol: Computed tomography images of the cervical spine without contrast. Radiation optimization: All CT scans at this facility use at least one of these dose optimization techniques: automated exposure control; mA and/or kV adjustment per patient size (includes targeted exams where dose is matched to clinical indication); or iterative reconstruction. COMPARISON: CT angio headneck* [id number] 03/16/2021 8:53 PM RADIATION DOSE METRICS: Total DLP (mGy-cm): 652.45 FINDINGS: Vertebrae: No acute fracture. Normal alignment. C2-C3: No significant disc protrusion. No severe spinal canal stenosis. No significant neural foraminal narrowing. C3-C4: No significant disc protrusion. No severe spinal canal stenosis. No significant neural foraminal narrowing. C4-C5: No significant disc protrusion. No severe spinal canal stenosis. No significant neural foraminal narrowing. C5-C6: No significant disc protrusion. No severe spinal canal stenosis. No significant neural foraminal narrowing. C6-C7: No significant disc protrusion. No severe spinal canal stenosis. No significant neural foraminal narrowing. C7-T1: No significant disc protrusion. No severe spinal canal stenosis. No significant neural foraminal narrowing. Soft tissues: Unremarkable. Lungs: Lung apices are normal. CT/CT cervical spin wo con* [id number] IMPRESSION: No acute findings.
--- NOTE | 2021-07-17 17:02 | CTR_ITS ---
PROCEDURE INFORMATION: Exam: CT Head Without Contrast Exam date and time: 07/17/2021 5:14 PM Age: 80 years old Clinical indication: Injury or trauma; Fall; Abrasion and concussion/head injury; Face and forehead TECHNIQUE: Imaging protocol: Computed tomography of the head without contrast. Radiation optimization: All CT scans at this facility use at least one of these dose optimization techniques: automated exposure control; mA and/or kV adjustment per patient size (includes targeted exams where dose is matched to clinical indication); or iterative reconstruction. COMPARISON: CT head wo con* [id number] 03/16/2021 3:35 PM RADIATION DOSE METRICS: Total DLP (mGy-cm): 652.85 FINDINGS: Brain: Moderate diffuse white matter disease likely reflecting chronic microvascular ischemic changes. Cerebral ventricles: No ventriculomegaly. Paranasal sinuses: Visualized sinuses are unremarkable. No fluid levels. Mastoid air cells: Visualized mastoid air cells are well aerated. Bones/joints: Unremarkable. No acute fracture. Soft tissues: Frontal scalp soft tissue swelling. CT/CT head wo con* [id number] IMPRESSION: 1. Negative for intracranial hemorrhage or mass effect. 2. Moderate diffuse white matter disease likely reflecting chronic microvascular ischemic changes. 3. Frontal scalp soft tissue swelling.
--- NOTE | 2021-07-17 17:02 | XRR_ITS ---
PROCEDURE INFORMATION: Exam: XR Right Knee Exam date and time: 07/17/2021 5:41 PM Age: 80 years old Clinical indication: Pain; Knee; Right; Additional info: R knee pain, fall today TECHNIQUE: Imaging protocol: XR Right knee. Views: 1 or 2 views. COMPARISON: No relevant prior studies available. FINDINGS: Bones/joints: Moderate to severe tricompartmental osteoarthritis of the knee. Soft tissues: Normal. XR/XR knee RT 1-2V [id number] IMPRESSION: Moderate to severe tricompartmental osteoarthritis of the knee.
--- NOTE | 2021-07-17 17:02 | XRR_ITS ---
PROCEDURE INFORMATION: Exam: XR Right Shoulder Exam date and time: 07/17/2021 5:37 PM Age: 80 years old Clinical indication: Pain; Shoulder; Right; Additional info: Pain, fall today TECHNIQUE: Imaging protocol: XR Right shoulder. Views: 2 or more views. COMPARISON: CT cervical spin wo con* [id number] 07/17/2021 5:17 PM FINDINGS: Bones/joints: Moderate to severe right shoulder osteoarthritis. Soft tissues: Normal. XR/XR shoulder RT min 2V* [id number] IMPRESSION: Moderate to severe right shoulder osteoarthritis.
--- NOTE | 2021-07-17 17:11 | ED_ITS ---
HPI - Head Injury General: Chief complaint: Head Injury Stated complaint: fall/head,neck,knee hip injuries Time Seen by Provider: 07/17/21 17:02 [facility] ED PFSH: Medical History (Updated 06/15/21 @ 16:32 by Leah Cleary MD) CAD (coronary artery disease) COPD (chronic obstructive pulmonary disease) Depression Hx-TIA (transient ischemic attack) Hyperlipidemia Hypertension Mucopurulent chronic bronchitis Primary osteoarthritis of left knee Surgical History H/O hysterectomy with oophorectomy History of appendectomy History of hip replacement left Hx of right coronary artery stent placement Stented coronary artery 11/17 Social History Smoking and tobacco status: never smoked Second hand smoke exposure: Yes Course Vital Signs: Vital signs: Vital Signs Temperature 97.7 F 07/17/21 16:53 Pulse Rate 76 07/17/21 16:53 Respiratory Rate 18 07/17/21 16:53 Blood Pressure 161/63 07/17/21 16:53 Pulse Oximetry 98 07/17/21 16:53 Discharge Plan Discharge Condition: Stable Prescriptions: No Action (DME) HINGED KNEE BRACE See Rx Instructions .Route .MEDSUPPLY Qty: 1 0RF Rx Instructions: As directed nitroglycerin 0.4 mg tablet, sublingual 0.4 mg SUBLINGUAL Q5M PRN (Reason: chest pain) Qty: 30 3RF isosorbide mononitrate 60 mg tablet extended release 24 hr 30 mg PO BID Qty: 90 2RF Rx Instructions: 340b ezetimibe [Zetia] 10 mg tablet 10 mg PO DAILY Qty: 90 3RF Repatha SureClick 140 mg/mL pen injector 140 mg SUBCUT .[id number] Qty: 2 11RF citalopram 20 mg tablet 20 mg PO QAM Qty: 30 0RF fluticasone propionate [Flonase Allergy Relief] 50 mcg/actuation spray,suspension 1 spray intranasal DAILY Qty: 16 2RF Rx Instructions: administer into each nostril hydrochlorothiazide 25 mg tablet See Rx Instructions .ROUTE .COMPLEX Qty: 90 0RF Dose Instruction: TAKE 1 TABLET BY MOUTH EVERY MORNING Rx Instructions: TAKE 1 TABLET BY MOUTH EVERY MORNING amlodipine 2.5 mg tablet See Rx Instructions .ROUTE .COMPLEX Qty: 90 0RF Dose Instruction: TAKE 1 TABLET BY MOUTH EVERY MORNING Rx Instructions: TAKE 1 TABLET BY MOUTH EVERY MORNING gemfibrozil 600 mg tablet See Rx Instructions .ROUTE .COMPLEX Qty: 180 0RF Dose Instruction: TAKE 1 TABLET BY MOUTH TWICE DAILY Rx Instructions: TAKE 1 TABLET BY MOUTH TWICE DAILY clopidogrel 75 mg tablet See Rx Instructions .ROUTE .COMPLEX Qty: 90 0RF Dose Instruction: TAKE 1 TABLET BY MOUTH DAILY Rx Instructions: TAKE 1 TABLET BY MOUTH DAILY albuterol sulfate 90 mcg/actuation HFA aerosol inhaler 1 inh inhalation QID PRN (Reason: Shortness Of Breath) 0RF Label Comments: Has not been using recently cholecalciferol (vitamin D3) 25 mcg (1,000 unit) capsule 1,000 unit PO QAM 0RF Vitamin B-12 1 tab PO QAM 0RF Adult Low Dose Aspirin 81 mg tablet,delayed release (DR/EC) 162 mg PO BEDTIME 0RF pantoprazole 40 mg tablet,delayed release (DR/EC) 40 mg PO BID 0RF ondansetron 4 mg tablet,disintegrating 4 mg PO TID PRN (Reason: nausea and vomiting) Qty: 10 0RF Referrals: Abbey Oh FNP [Primary Care Provider] - Coding Level of Care Code ED [employer] [facility] for [facility]
--- NOTE | 2021-07-17 17:12 | CTR_ITS ---
PROCEDURE INFORMATION: Exam: CT Maxillofacial Without Contrast Exam date and time: 07/17/2021 5:20 PM Age: 80 years old Clinical indication: Injury or trauma; Fall; Bleeding/hemorrhage and blunt trauma (contusions or hematomas); Cheek bone and forehead and nose; Bilateral; Right; Additional info: Eval facial injury TECHNIQUE: Imaging protocol: Computed tomography images of the face without contrast. Radiation optimization: All CT scans at this facility use at least one of these dose optimization techniques: automated exposure control; mA and/or kV adjustment per patient size (includes targeted exams where dose is matched to clinical indication); or iterative reconstruction. COMPARISON: CT head wo con* [id number] 07/17/2021 5:14 PM RADIATION DOSE METRICS: Total DLP (mGy-cm): 714.01 FINDINGS: Orbital cavities: Orbits are normal. Globes are unremarkable. Bones/joints: Somewhat equivocal minimally depressed nasal bone fracture. Paranasal sinuses: Normal. No air-fluid levels. Soft tissues: Unremarkable. CT/CT facial bones wo con* [id number] IMPRESSION: Somewhat equivocal minimally depressed nasal bone fracture.
--- NOTE | 2021-07-17 17:28 | W.ED.GENADLT ---
HPI - General Adult General: Chief complaint: Head Injury Stated complaint: fall/head,neck,knee hip injuries Time Seen by Provider: 07/17/21 17:02 History of Present Illness: Patient is an 80-year-old female with a history of Plavix use presenting to the emergency room after an episode mechanical fall. Patient was in a storage unit helping unload packages when she slipped tripped and fell onto gravel. Patient report bruises on her face. Complaining of neck pain, headache, right-sided shoulder right hip and right knee pain. Patient does not know when her last Tdap was. Patient denies LOC, chest pain, shortness breath, or palpitation prior to the episode of fall. Onset:4:00pm Duration:once Location:storage unit Severity:mild/moderate Associated symptoms: Deny chest pain, dyspnea, nausea, palpitations or vomiting Review of Systems Const: Denies: fever(s) or chills Eyes: Denies: change in vision ENMT: Denies: mouth pain Card: Denies: chest pain or palpitations Resp: Denies: dyspnea or non-productive cough GI: Denies: abdominal pain, nausea, vomiting or diarrhea : Denies: dysuria Musc: Reports: neck pain and extremity pain (+R shoulder pain, R knee pain, and R hip pain) Skin/Breast: Reports: new lesions (+facial bruises) Neuro: Denies: weakness in extremities Psych: Reports: other (Normal mood) Ed/Lymph: Denies: easy bruising PFSH ED PFSH: Medical History CAD (coronary artery disease) COPD (chronic obstructive pulmonary disease) Depression Hx-TIA (transient ischemic attack) Hyperlipidemia Hypertension Mucopurulent chronic bronchitis Primary osteoarthritis of left knee Surgical History H/O hysterectomy with oophorectomy History of appendectomy History of hip replacement left Hx of right coronary artery stent placement Stented coronary artery 11/17 Social History Smoking and tobacco status: never smoked Second hand smoke exposure: Yes Physical Exam Const: COMMON NORMALS: alert HENMT: COMMON NORMALS: atraumatic HEAD & SCALP: atraumatic MOUTH: moist mucous membranes abnormal Eye: COMMON NORMALS: EOMs intact bilaterally and conjunctivae normal CONJUNCTIVA: Yes conjunctivae normal Neck/C-Spine: COMMON NORMALS: full ROM and supple Resp: COMMON NORMALS: normal respiratory effort and clear to auscultation bilaterally AUSCULTATION: clear to auscultation bilaterally Cardio: COMMON NORMALS: regular rate RATE: regular rate GI: COMMON NORMALS: Soft to palpation and non-tender PALPATION: Yes Soft to palpation Extremity: COMMON NORMALS: full ROM Neuro: SENSORIUM/ORIENTATION: Yes alert MOTOR EXAM: No Abnormal motor strength present and Other motor observations present (no focal motor deficits) Psych: COMMON NORMALS: speech normal SPEECH: Yes normal speech MOOD & AFFECT: Yes euthymic mood Skin: NARRATIVE SKIN EXAM: +facial bruises Course Vital Signs: Vital signs: Vital Signs Temperature 9734 F H 07/17/21 19:01 Pulse Rate 71 07/17/21 19:01 Respiratory Rate 49 H 07/17/21 19:01 Blood Pressure 159/82 07/17/21 19:01 Pulse Oximetry 96 07/17/21 19:01 MDM - General Adult Medical Decision Making 80-year-old female with a history of Plavix use during the emergency room arthritis of mechanical fall. Patient has bruises on the face. Rest of exam within normal limits. No focal right shoulder right knee right hip tenderness palpation. Patient has been able to ambulate without difficulty. Imaging studies including x-ray of the shoulder/hip/knee negative for any acute finding. CT brain is negative for any acute brain bleed. CT face showed minimal nasal fracture Patient received TDAP in the ER. Controlled with Tylenol and lidocaine patch. I have given patient follow up with our case managers to be seen by our outpatient ENT for nasal fracture. Patient aware of a call from our case managers to schedule for appointment(s) and verbalizes understanding of the importance of following up. Rx: Tylenol, lidocaine patch, and menthol PRN pain Disposition: Discharge. Patient counseled regarding diagnostic impression, treatment plan. Patient given ED strict return precautions to return for continuation, worsening, or development of new symptoms. Instructed to f/u w/ PCP regarding symptoms today. Patient verbalized understanding. Lab Data Radiology Impressions Cervical Spine CT 07/17/21 17:02 IMPRESSION: No acute findings. Head CT 07/17/21 17:02 IMPRESSION: 1. Negative for intracranial hemorrhage or mass effect. 2. Moderate diffuse white matter disease likely reflecting chronic microvascular ischemic changes. 3. Frontal scalp soft tissue swelling. Hip/Pelvis X-Ray 07/17/21 17:02 IMPRESSION: 1. Negative for fracture or dislocation, decreased bone mineral density somewhat limits evaluation, if clinical concern for fracture remains consider further evaluation with a CT scan. 2. Moderate right hip osteoarthritis. Knee X-Ray 07/17/21 17:02 IMPRESSION: Moderate to severe tricompartmental osteoarthritis of the knee. Shoulder X-Ray 07/17/21 17:02 IMPRESSION: Moderate to severe right shoulder osteoarthritis. Face CT 07/17/21 17:12 IMPRESSION: Somewhat equivocal minimally depressed nasal bone fracture. Imaging Data Other Imaging: Radiologist's impression: [employer] [address] [address] Scan Report Signed Patient: Donya Carpio Unit #: [id number] : 1940 Age/Sex: 80 / F ADM Date: 07/17/21 Loc: ER Room/Bed: Attending Dr: Ordering Provider/Ordering MD: Tiburcio Willis MD Date of Service: 07/17/21 Procedure(s): CT facial bones wo con* 51466 Accession Number(s): [id number] Report Number: [id number] PROCEDURE INFORMATION: Exam: CT Maxillofacial Without Contrast Exam date and time: 07/17/2021 5:20 PM Age: 80 years old Clinical indication: Injury or trauma; Fall; Bleeding/hemorrhage and blunt trauma (contusions or hematomas); Cheek bone and forehead and nose; Bilateral; Right; Additional info: Eval facial injury TECHNIQUE: Imaging protocol: Computed tomography images of the face without contrast. Radiation optimization: All CT scans at this facility use at least one of these dose optimization techniques: automated exposure control; mA and/or kV adjustment per patient size (includes targeted exams where dose is matched to clinical indication); or iterative reconstruction. COMPARISON: CT head wo con* [id number] 07/17/2021 5:14 PM RADIATION DOSE METRICS: Total DLP (mGy-cm): 714.01 FINDINGS: Orbital cavities: Orbits are normal. Globes are unremarkable. Bones/joints: Somewhat equivocal minimally depressed nasal bone fracture. Paranasal sinuses: Normal. No air-fluid levels. Soft tissues: Unremarkable. CT/CT facial bones wo con* [id number] IMPRESSION: Somewhat equivocal minimally depressed nasal bone fracture. ? Dictated By: Roverto Bender MD Signed By: Roverto Bender MD Signed Date/Time: 07/17/21 1744 DD/ [address] [address] XRay Report Signed Patient: Donya Carpio Unit #: [id number] : 1940 Age/Sex: 80 / F ADM Date: 07/17/21 Loc: ER Room/Bed: Attending Dr: Ordering Provider/Ordering MD: Tiburcio Willis MD Date of Service: 07/17/21 Procedure(s): XR shoulder RT min 2V* 93016 Accession Number(s): [id number] Report Number: [id number] PROCEDURE INFORMATION: Exam: XR Right Shoulder Exam date and time: 07/17/2021 5:37 PM Age: 80 years old Clinical indication: Pain; Shoulder; Right; Additional info: Pain, fall today TECHNIQUE: Imaging protocol: XR Right shoulder. Views: 2 or more views. COMPARISON: CT cervical spin wo con* [id number] 07/17/2021 5:17 PM FINDINGS: Bones/joints: Moderate to severe right shoulder osteoarthritis. Soft tissues: Normal. XR/XR shoulder RT min 2V* [id number] IMPRESSION: Moderate to severe right shoulder osteoarthritis. ? Dictated By: Roverto Bender MD Signed By: Roverto Bender MD Signed Date/Time: 07/17/21 1834 DD/ [address] [address] XRay Report Signed Patient: Donya Carpio Unit #: [id number] : 1940 Age/Sex: 80 / F ADM Date: 07/17/21 Loc: ER Room/Bed: Attending Dr: Ordering Provider/Ordering MD: Tiburcio Willis MD Date of Service: 07/17/21 Procedure(s): XR knee RT 1-2V 04640 Accession Number(s): [id number] Report Number: [id number] PROCEDURE INFORMATION: Exam: XR Right Knee Exam date and time: 07/17/2021 5:41 PM Age: 80 years old Clinical indication: Pain; Knee; Right; Additional info: R knee pain, fall today TECHNIQUE: Imaging protocol: XR Right knee. Views: 1 or 2 views. COMPARISON: No relevant prior studies available. FINDINGS: Bones/joints: Moderate to severe tricompartmental osteoarthritis of the knee. Soft tissues: Normal. XR/XR knee RT 1-2V 66475 IMPRESSION: Moderate to severe tricompartmental osteoarthritis of the knee. ? Dictated By: Roverto Bender MD Signed By: Roverto Bender MD Signed Date/Time: 07/17/21 183 DD/ [address] [address] XRay Report Signed Patient: Donya Carpio Unit #: [id number] : 1940 Age/Sex: 80 / F ADM Date: 07/17/21 Loc: ER Room/Bed: Attending Dr: Ordering Provider/Ordering MD: Tiburcio Willis MD Date of Service: 07/17/21 Procedure(s): XR hip RT 2-3V wo/w pel* 06666 Accession Number(s): [id number] Report Number: [id number] PROCEDURE INFORMATION: Exam: XR Right Hip Exam date and time: 07/17/2021 5:47 PM Age: 80 years old Clinical indication: Hip pain; Right hip; Additional info: R hip pain, fall today TECHNIQUE: Imaging protocol: XR Right hip. Views: 1 view hip with pelvis when performed. COMPARISON: CT abdomen pelvis w con* [id number] 03/16/2021 3:39 PM FINDINGS: Bones/joints: Moderate right hip osteoarthritis. Soft tissues: Unremarkable. Vasculature: Scattered vascular calcifications XR/XR hip RT 2-3V wo/w pel* 00581 IMPRESSION: 1. Negative for fracture or dislocation, decreased bone mineral density somewhat limits evaluation, if clinical concern for fracture remains consider further evaluation with a CT scan. 2. Moderate right hip osteoarthritis. ? Dictated By: Roverto Bender MD Signed By: Roverto Bender MD Signed Date/Time: 07/17/21 183 DD/ [address] [address] [address] Scan Report Signed Patient: Donya Carpio Unit #: [id number] : 1940 Age/Sex: 80 / F ADM Date: 07/17/21 Loc: ER Room/Bed: Attending Dr: Ordering Provider/Ordering MD: Tiburcio Willis MD Date of Service: 07/17/21 Procedure(s): CT head wo con* 54405 Accession Number(s): [id number] Report Number: [id number] PROCEDURE INFORMATION: Exam: CT Head Without Contrast Exam date and time: 07/17/2021 5:14 PM Age: 80 years old Clinical indication: Injury or trauma; Fall; Abrasion and concussion/head injury; Face and forehead TECHNIQUE: Imaging protocol: Computed tomography of the head without contrast. Radiation optimization: All CT scans at this facility use at least one of these dose optimization techniques: automated exposure control; mA and/or kV adjustment per patient size (includes targeted exams where dose is matched to clinical indication); or iterative reconstruction. COMPARISON: CT head wo con* [id number] 03/16/2021 3:35 PM RADIATION DOSE METRICS: Total DLP (mGy-cm): 652.85 FINDINGS: Brain: Moderate diffuse white matter disease likely reflecting chronic microvascular ischemic changes. Cerebral ventricles: No ventriculomegaly. Paranasal sinuses: Visualized sinuses are unremarkable. No fluid levels. Mastoid air cells: Visualized mastoid air cells are well aerated. Bones/joints: Unremarkable. No acute fracture. Soft tissues: Frontal scalp soft tissue swelling. CT/CT head wo con* 81055 IMPRESSION: 1. Negative for intracranial hemorrhage or mass effect. 2. Moderate diffuse white matter disease likely reflecting chronic microvascular ischemic changes. 3. Frontal scalp soft tissue swelling. ? Dictated By: Roverto Bendre MD Signed By: Roverto Bender MD Signed Date/Time: 07/17/21 174 DD/ [address] [address] [address] Scan Report Signed Patient: Donya Carpio Unit #: [id number] : 1940 Age/Sex: 80 / F ADM Date: 07/17/21 Loc: ER Room/Bed: Attending Dr: Ordering Provider/Ordering MD: Tiburcio Willis MD Date of Service: 07/17/21 Procedure(s): CT cervical spin wo con* 79782 Accession Number(s): [id number] Report Number: [id number] PROCEDURE INFORMATION: Exam: CT Cervical Spine Without Contrast Exam date and time: 07/17/2021 5:17 PM Age: 80 years old Clinical indication: Injury or trauma; Fall; Concussion/head injury TECHNIQUE: Imaging protocol: Computed tomography images of the cervical spine without contrast. Radiation optimization: All CT scans at this facility use at least one of these dose optimization techniques: automated exposure control; mA and/or kV adjustment per patient size (includes targeted exams where dose is matched to clinical indication); or iterative reconstruction. COMPARISON: CT angio headneck* [id number] 03/16/2021 8:53 PM RADIATION DOSE METRICS: Total DLP (mGy-cm): 652.45 FINDINGS: Vertebrae: No acute fracture. Normal alignment. C2-C3: No significant disc protrusion. No severe spinal canal stenosis. No significant neural foraminal narrowing. C3-C4: No significant disc protrusion. No severe spinal canal stenosis. No significant neural foraminal narrowing. C4-C5: No significant disc protrusion. No severe spinal canal stenosis. No significant neural foraminal narrowing. C5-C6: No significant disc protrusion. No severe spinal canal stenosis. No significant neural foraminal narrowing. C6-C7: No significant disc protrusion. No severe spinal canal stenosis. No significant neural foraminal narrowing. C7-T1: No significant disc protrusion. No severe spinal canal stenosis. No significant neural foraminal narrowing. Soft tissues: Unremarkable. Lungs: Lung apices are normal. CT/CT cervical spin wo con* [id number] IMPRESSION: No acute findings. ? Dictated By: Roverto Bender MD Signed By: Roverto Bender MD Signed Date/Time: 07/17/21 174 DD/ 558 Discharge Plan Discharge Patient Disposition: Home Clinical Impression: Fall, Bruise of face, Headache, Fracture of nasal bone Condition: Stable Prescriptions: New acetaminophen 500 mg tablet 500 mg PO Q6H PRN (Reason: pain) 5 Days Qty: 20 0RF lidocaine 5 % adhesive patch,medicated 1 patch topical DAILY PRN (Reason: pain) 30 Days Qty: 30 0RF Rx Instructions: leave on most painful area for up to 12 hrs Biofreeze (menthol) 5 % gel 1 ea topical BID PRN (Reason: pain) 10 Days Qty: 1 0RF No Action (DME) HINGED KNEE BRACE See Rx Instructions .Route .MEDSUPPLY Qty: 1 0RF Rx Instructions: As directed nitroglycerin 0.4 mg tablet, sublingual 0.4 mg SUBLINGUAL Q5M PRN (Reason: chest pain) Qty: 30 3RF isosorbide mononitrate 60 mg tablet extended release 24 hr 30 mg PO BID Qty: 90 2RF Rx Instructions: 340b ezetimibe [Zetia] 10 mg tablet 10 mg PO DAILY Qty: 90 3RF Repatha SureClick 140 mg/mL pen injector 140 mg SUBCUT .Q5Fodet Qty: 2 11RF citalopram 20 mg tablet 20 mg PO QAM Qty: 30 0RF fluticasone propionate [Flonase Allergy Relief] 50 mcg/actuation spray,suspension 1 spray intranasal DAILY Qty: 16 2RF Rx Instructions: administer into each nostril hydrochlorothiazide 25 mg tablet See Rx Instructions .ROUTE .COMPLEX Qty: 90 0RF Dose Instruction: TAKE 1 TABLET BY MOUTH EVERY MORNING Rx Instructions: TAKE 1 TABLET BY MOUTH EVERY MORNING amlodipine 2.5 mg tablet See Rx Instructions .ROUTE .COMPLEX Qty: 90 0RF Dose Instruction: TAKE 1 TABLET BY MOUTH EVERY MORNING Rx Instructions: TAKE 1 TABLET BY MOUTH EVERY MORNING gemfibrozil 600 mg tablet See Rx Instructions .ROUTE .COMPLEX Qty: 180 0RF Dose Instruction: TAKE 1 TABLET BY MOUTH TWICE DAILY Rx Instructions: TAKE 1 TABLET BY MOUTH TWICE DAILY clopidogrel 75 mg tablet See Rx Instructions .ROUTE .COMPLEX Qty: 90 0RF Dose Instruction: TAKE 1 TABLET BY MOUTH DAILY Rx Instructions: TAKE 1 TABLET BY MOUTH DAILY albuterol sulfate 90 mcg/actuation HFA aerosol inhaler 1 inh inhalation QID PRN (Reason: Shortness Of Breath) 0RF Label Comments: Has not been using recently cholecalciferol (vitamin D3) 25 mcg (1,000 unit) capsule 1,000 unit PO QAM 0RF Vitamin B-12 1 tab PO QAM 0RF Adult Low Dose Aspirin 81 mg tablet,delayed release (DR/EC) 162 mg PO BEDTIME 0RF pantoprazole 40 mg tablet,delayed release (DR/EC) 40 mg PO BID 0RF ondansetron 4 mg tablet,disintegrating 4 mg PO TID PRN (Reason: nausea and vomiting) Qty: 10 0RF Discharge Orders: Discharge ED (Routine); Ordered 07/17/21 Ordered By: Tiburcio Willis Referrals: Abbey Oh FNP [Primary Care Provider] - Discharge Diet: Advance as tolerated Discharge Activity: Increase activity as tolerated Patient Instructions: Fall Prevention (ED) Activity Restrictions/Additional Instructions: Please use your pain medicine as instructed. Come back to the emergency room you have any new or concerning complaints. Our case managers will have you follow-up with an ear/nose/throat doctor in the next few days for your nose fracture. You would be expected to have a phone call with our case managers who will put you on the schedule. You can expect a call from us in the next 2-3 days. If you don't hear from us, call us back in the emergency room at [phone]. Coding Level of Care Code ED Systems Integration Advisor for [facility] Exam Comprehensive
[2021-07-17] MEDS: tetanus-dipt-pertussis 0.5 mL SDV IM (17:57)
[2021-07-17] MEDS: acetaminophen 500 mg Tablet PO (17:58)
[2021-07-17] MEDS: lidocaine 5% Patch 1 PATCH TOPICAL (17:59)
[2021-07-17 18:10] VITALS: BP 156/71; PULSE 82; RESP 20; O2SAT 97
[2021-07-17 19:01] VITALS: BP 159/82; PULSE 71; RESP 49; TEMP 5390; TEMP 9734; O2SAT 96
== END 2021-07-17 19:02 | disposition home or self-care (01) ==
PROVIDERS: Emergency Provider Emergency Medicine; PCP Nurse Practitioner Family
DX: S02.2XXA Fracture of nasal bones, initial encounter for closed fracture (principal); S00.83XA Contusion of other part of head, initial encounter; W01.0XXA Fall on same level from slipping, tripping and stumbling without subsequent striking against object, initial encounter; Y93.89 Activity, other specified; Y92.89 Other specified places as the place of occurrence of the external cause; R51.9 Headache, unspecified; M25.511 Pain in right shoulder; M25.561 Pain in right knee; M25.551 Pain in right hip; M54.2 Cervicalgia; Z23 Encounter for immunization
CPT/HCPCS: 70450; 70486; 72125; 73030; 73502; 73560; 90471; 90715; 99283

== ENCOUNTER → 2021-09-26 09:03 | Outpatient (BNVA) | payer MEDICARE, OTHER, SELFPAY | PROVIDERS: PCP Nurse Practitioner Family; Visit Provider Nurse Practitioner Family | DX: E55.9 Vitamin D deficiency, unspecified (principal); I10 Essential (primary) hypertension; Z79.01 Long term (current) use of anticoagulants; E78.2 Mixed hyperlipidemia | CPT/HCPCS: 80053; 82306; 85025 ==

== ENCOUNTER → 2021-10-09 10:17 | Outpatient (BNVA) | payer MEDICARE, OTHER, SELFPAY | PROVIDERS: PCP Nurse Practitioner Family; Visit Provider Nurse Practitioner Family | DX: D64.9 Anemia, unspecified (principal) | CPT/HCPCS: 82607; 83540 ==

== ENCOUNTER → 2021-10-26 13:20 | Outpatient (BNVA) | payer MEDICARE, OTHER, SELFPAY | PROVIDERS: PCP Nurse Practitioner Family; Visit Provider Nurse Practitioner Family | DX: R30.0 Dysuria (principal); R31.9 Hematuria, unspecified; N39.0 Urinary tract infection, site not specified | CPT/HCPCS: 81000; 87077; 87086; 87184 ==

== ENCOUNTER → 2021-11-03 10:18 | Outpatient (BNVA) | payer MEDICARE, OTHER, SELFPAY | PROVIDERS: PCP Nurse Practitioner Family; Visit Provider Nurse Practitioner Family | DX: R31.9 Hematuria, unspecified (principal) | CPT/HCPCS: 87086 ==

== ENCOUNTER → 2021-12-18 11:32 | Outpatient (BNVA) | payer MEDICARE, OTHER, SELFPAY | PROVIDERS: PCP Nurse Practitioner Family; Visit Provider Internal Medicine Cardiovascular Disease | DX: I25.10 Atherosclerotic heart disease of native coronary artery without angina pectoris (principal); E78.2 Mixed hyperlipidemia; I10 Essential (primary) hypertension; Z86.73 Personal history of transient ischemic attack (TIA), and cerebral infarction without residual deficits; Z95.1 Presence of aortocoronary bypass graft | CPT/HCPCS: 99214 ==

== ENCOUNTER → 2022-01-03 10:34 | Outpatient (BNVA) | payer MEDICARE, OTHER, SELFPAY | PROVIDERS: PCP Nurse Practitioner Family; Visit Provider Nurse Practitioner Family | DX: N39.0 Urinary tract infection, site not specified (principal); R31.9 Hematuria, unspecified; I10 Essential (primary) hypertension; Z79.899 Other long term (current) drug therapy; J06.9 Acute upper respiratory infection, unspecified | CPT/HCPCS: 80053; 81000; 85025; 87086 ==

== ENCOUNTER → 2022-01-10 15:08 | Outpatient (BNVA) | payer MEDICARE, OTHER, SELFPAY | PROVIDERS: PCP Nurse Practitioner Family; Visit Provider Nurse Practitioner Family | DX: D50.8 Other iron deficiency anemias | CPT/HCPCS: 82607; 83550 ==

== ENCOUNTER → 2022-01-30 09:45 | Outpatient (BNVA) | payer MEDICARE, OTHER, SELFPAY | PROVIDERS: PCP Nurse Practitioner Family; Visit Provider Nurse Practitioner Family | DX: D50.8 Other iron deficiency anemias (principal) | CPT/HCPCS: 82270 ==

== ENCOUNTER → 2022-04-03 10:49 | Outpatient (BNVA) | payer MEDICARE, OTHER, SELFPAY | PROVIDERS: PCP Nurse Practitioner Family; Visit Provider Nurse Practitioner Family | DX: N30.00 Acute cystitis without hematuria (principal) | CPT/HCPCS: 81000; 87077; 87086; 87184 ==

== ENCOUNTER 2022-04-13 13:28 | Outpatient (CLI) | payer MEDICARE, OTHER, SELFPAY ==
--- NOTE | 2022-04-13 13:38 | XR_ITS ---
WS: [id number] XR skull min 4V* [id number] REASON FOR EXAM: R22.0 - Localized swelling, mass and lump, head FINDINGS: No facial bone abnormality. The maxillary, ethmoid, frontal, and sphenoid sinuses are unremarkable. There is mucosal thickening within the left maxillary sinus and increased soft tissue density in the inferior most aspect of the left maxillary sinus. XR/XR skull min 4V* [id number] IMPRESSION: Findings compatible with inflammatory left maxillary sinus disease.
== END 2022-04-13 13:29 | disposition home or self-care (01) ==
LOC: RAD 13:29
PROVIDERS: PCP Nurse Practitioner Family; Visit Provider Nurse Practitioner Family
DX: R22.0 Localized swelling, mass and lump, head (principal); D50.8 Other iron deficiency anemias; N39.0 Urinary tract infection, site not specified; J32.0 Chronic maxillary sinusitis
CPT/HCPCS: 70260; 81000; 82607; 83550; 85025; 87086

== ENCOUNTER → 2022-05-04 09:28 | Outpatient (BNVA) | payer MEDICARE, OTHER, SELFPAY | PROVIDERS: PCP Nurse Practitioner Family; Visit Provider Nurse Practitioner Family | DX: N30.00 Acute cystitis without hematuria (principal) | CPT/HCPCS: 81000; 87086 ==

== ENCOUNTER → 2022-06-06 11:14 | Outpatient (BNVA) | payer MEDICARE, SELFPAY | PROVIDERS: PCP Nurse Practitioner Family; Visit Provider Nurse Practitioner Family | DX: R05.9 Cough, unspecified (principal); D64.9 Anemia, unspecified | CPT/HCPCS: 85025; 87400; 87426 ==

== ENCOUNTER 2022-06-08 09:45 | Emergency (ER) | payer MEDICARE, SELFPAY ==
[2022-06-08 09:52] VITALS: BP 155/71; PULSE 62; RESP 18; O2SAT 97
--- NOTE | 2022-06-08 10:00 | XR_ITS ---
WS: [id number] Portable AP upright chest, 06/08/2022 Clinical Data: sob Comparison: Portable chest, 05/15/2021 Findings: No nodules, masses or effusions are seen. The heart is normal. The pulmonary vascularity is not increased. No pneumonia or pneumothorax is seen. The aortic arch and descending thoracic aorta s how tortuosity. XR/XR chest 1V portable [id number] Impression: Atherosclerosis.
[2022-06-08 11:29] LABS: Basophils % 0.2 %; Eosinophils # 0.2 10^3/uL (0.0-0.8); Eosinophils % 1.9 %; Hematocrit 35.4 % (37.0-47.0); Hemoglobin 11.4 g/dL (11.5-15.3); Lymphocytes # 3.1 10^3/uL (0.8-4.8); Lymphocytes % 32.5 %; Mean Corpuscular HGB Conc 32.2 g/dL (30.0-36.0); Mean Corpuscular Hemoglobin 29.5 pg (28.0-34.0); Mean Corpuscular Volume 91.5 fl (81-99); Mean Platelet Volume 10.2 fL (7.4-10.4); Monocytes # 0.6 10^3/uL (0.2-0.9); Monocytes % 6.5 %; Neutrophils # 5.46 10^3/uL (1.8-7.7); Neutrophils % 57.8 %; Nucleated Red Blood Cells % 0 %; Platelet Count 430 10^3/cmm (130-400); Red Blood Count 3.87 10^6/uL (4.1-5.3); Red Cell Distribution Width 14.6 % (12.1-15.1); White Blood Count 9.4 10^3/uL (4.0-10.0)
[2022-06-08 11:49] LABS: Alanine Aminotransferase < 5 U/L (0-33); Albumin Level 4.4 g/dL (3.5-5.2); Alkaline Phosphatase 110 U/L (35-105); Anion Gap 20.1 (5-19); Aspartate Amino Transferase 10 U/L (0-32); Blood Urea Nitrogen 34 mg/dL (8-23); Calcium 9.8 mg/dL (8.5-10.5); Carbon Dioxide 21 mmol/L (22-29); Chloride 104 mmol/L (98-107); Globulin 3.4 g/dL (1.3-4.6); Glucose 93 mg/dL (65-115); Osmolality Calculated 301 mOsm/kg (285-295); Potassium 3.1 mmol/L (3.5-5.1); Sodium 142 mmol/L (136-145); Total Bilirubin 0.2 mg/dL (0.15-1.2); Total Protein 7.8 g/dL (6.6-8.7)
--- NOTE | 2022-06-08 12:01 | ECG_ITS ---
[facility] Test Date: 2022-06-08 Pat Name: Donya Carpio Department: Room: Gender: Female [employer]er: : 1940 Requested By: Osito Martin Order Number: [id number] Linda MD: Carlos Erazo M.D. 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 [email or web address]
[2022-06-08 12:06] LABS: Troponin(5th) Baseline 10 ng/L (0-10)
--- NOTE | 2022-06-08 12:27 | ED_ITS ---
HPI - SOB/Dyspnea General: Chief Complaint: Shortness of Breath/Dyspnea Stated Complaint: SOB, Cough, Weakness Time Seen by Provider: 06/08/22 09:58 History of Present Illness: HPI Narrative: Patient Is an 81-year-old female comes to the ED with upper respiratory symptoms. Patient's symptoms started over a week ago. She is complaining of having a cough, nasal congestion and drainage, sore throat and shortness of breath. She says her cough is dry nonproductive. She will have episodes of coughing where she feels like she almost passes out. She was seen by her PCP on Saturday and a COVID test was done and it was negative. She was diagnosed with bronchial pneumonia and discharged home from primary care's office on an antibiotic and steroid. PCP told her if after 2 days she is not feeling better to give her a call. Patient has taken 2 doses of her antibiotic and never steroid and is not feeling much better and called PCP and they told her to come here for further evaluation. Endorses having chills. She has some chest discomfort when she coughs but denies any current chest pain, denies any fever, nausea/vomiting, abdominal pain, bladder or bowel symptoms. Associated symptoms: Deny abdominal pain, chest pain, fever(s), nausea, orthopnea, palpitations or vomiting Review of Systems Const: Reports: chills; Denies: fever(s) or fatigue Eyes: Denies: change in vision or eye discomfort ENMT: Reports: throat pain, nasal discharge and nasal congestion; Denies: odynophagia Card: Denies: chest pain, palpitations, edema, swelling of feet/ankles, dyspnea on exertion or orthopnea Resp: Reports: dyspnea and non-productive cough; Denies: productive cough GI: Denies: abdominal pain, nausea, vomiting, diarrhea, constipation or hematochezia : Denies: flank pain, dysuria or hematuria Musc: Denies: neck pain, back pain or extremity swelling Skin/Breast: Denies: rash or new lesions Neuro: Denies: headache(s), numbness in extremities or weakness in extremities [facility] ED PFSH: Medical History CAD (coronary artery disease) COPD (chronic obstructive pulmonary disease) Depression Hx-TIA (transient ischemic attack) Hyperlipidemia Hypertension Mucopurulent chronic bronchitis Primary osteoarthritis of left knee Surgical History H/O hysterectomy with oophorectomy History of appendectomy History of hip replacement left Hx of right coronary artery stent placement Stented coronary artery 11/17 Family History Brother CAD (coronary artery disease) Chronic kidney disease (CKD) Diabetes Hypertension Lung disease Stroke Family/Other CAD (coronary artery disease) Hypertension Lung disease Stroke Mother Cancer Hypertension Sister Cancer CAD (coronary artery disease) Dementia Hypertension Stroke Daughter Diabetes Sister No problems noted. Father Hypertension Lung disease Stroke Social History Smoking and tobacco status: never smoked Second hand smoke exposure: Yes Alcohol intake: never Adopted: No Lives independently: Yes Household members: none Housing: House Current occupational status: unemployed Physical Exam Const: COMMON NORMALS: no acute distress, patient oriented x3 and alert HENMT: COMMON NORMALS: normocephalic HEAD & SCALP: normocephalic MOUTH: Normal oral and palatal mucosa present THROAT: posterior oropharynx normal and uvula midline Neck/C-Spine: COMMON NORMALS: supple GENERAL: Yes normal visual inspection Resp: COMMON NORMALS: normal respiratory effort, No retractions, No use of accessory muscles and clear to auscultation bilaterally AUSCULTATION: clear to auscultation bilaterally Cardio: COMMON NORMALS: regular rate, regular rhythm, S1 normal heart sound present, S2 normal heart sound present, No gallops present (Cardio), No clicks present (Cardio), No murmurs present (Cardio) and Peripheral pulses 2+ throughout RATE: regular rate RHYTHM: regular rhythm HEART SOUNDS: S1 normal heart sound present and S2 normal heart sound present PERIPHERAL PULSES: Peripheral pulses 2+ throughout GI: COMMON NORMALS: Normal to inspection, nondistended, normoactive bowel sounds present, Soft to palpation, non-tender and no masses PALPATION: Yes Soft to palpation : COMMON NORMALS: Yes no CVA tenderness BLADDER/KIDNEY EXAM: Yes no CVA tenderness Back/Pelvis: COMMON NORMALS: no CVA tenderness Extremity: COMMON NORMALS: normal to inspection Neuro: COMMON NORMALS: patient oriented x3 SENSORIUM/ORIENTATION: Yes alert GAIT: Yes Normal gait present Skin: GENERAL SKIN EXAM: dry skin Course Vital Signs: Vital signs: Vital Signs Temperature 98.0 F 06/08/22 14:55 Pulse Rate 65 06/08/22 14:55 Respiratory Rate 14 06/08/22 14:55 Blood Pressure 149/50 06/08/22 13:16 Pulse Oximetry 97 06/08/22 14:55 Oxygen Delivery Me thod 06/08/22 14:55 MDM - SOB/Dyspnea Medical Decision Making Patient Is an 81-year-old female comes to the ED with upper respiratory symptoms. Patient's symptoms started over a week ago. She is complaining of having a cough, nasal congestion and drainage, sore throat and shortness of breath. She says her cough is dry nonproductive. She will have episodes of coughing where she feels like she almost passes out. She was seen by her PCP on Saturday and a COVID test was done and it was negative. She was diagnosed with bronchial pneumonia and discharged home from primary care's office on an antibiotic and steroid. PCP told her if after 2 days she is not feeling better to give her a call. Patient has taken 2 doses of her antibiotic and never steroid and is not feeling much better and called PCP and they told her to come here for further evaluation. Endorses having chills. She has some chest discomfort when she coughs but denies any current chest pain, denies any fever, nausea/vomiting, abdominal pain, bladder or bowel symptoms. Vitals are stable. Potassium 3.1 the rest of the labs are unremarkable. Troponin negative. EKG showed normal sinus rhythm, no ST segment elevation or depression seen, 62 bpm. Chest x-ray shows no acute findings. Patient was given half a liter of IV fluids, Rocephin, DuoNeb breathing treatment, Solu-Medrol and p.o. potassium chloride. Patient diagnosed with bronchitis and was discharged home with a prescription for albuterol. She was told to continue taking her previously prescribed antibiotic and steroid until prescriptions complete. Told to follow- up with PCP in the next week for reevaluation. Return to ED precautions given. Patient understood and agreed with plan. Lab Data I reviewed the patient's lab results. 06/08/22 11:21 06/08/22 11:21 Labs/Radiology: Radiology Impressions Chest X-Ray 06/08/22 10:00 Impression: Atherosclerosis. Laboratory Results WBC 9.4 10^3/uL (4.0-10.0) 06/08/22 11: RBC 3.87 10^6/uL (4.1-5.3) L 06/08/22 11: Hgb 11.4 g/dL (11.5-15.3) L 06/08/22 11:21 Hct 35.4 % (37.0-47.0) L 06/08/22 11: MCV 91.5 fl (81-99) 06/08/22 11:21 MCH 29.5 pg (28.0-34.0) 06/08/22 11: MCHC 32.2 g/dL (30.0-36.0) 06/08/22 11: RDW 14.6 % (12.1-15.1) 06/08/22 11: Plt Count 430 10^3/cmm (130-400) H 06/08/22 11: MPV 10.2 fL (7.4-10.4) 06/08/22 11:21 Neut % (Auto) 57.8 % 06/08/22 11:21 Lymph % (Auto) 32.5 % 06/08/22 11:21 Morrill % (Auto) 6.5 % 06/08/22 11: Eos % (Auto) 1.9 % 06/08/22 11: Baso % (Auto) 0.2 % 06/08/22 11: Neut # (Auto) 5.46 10^3/uL (1.8-7.7) 06/08/22 11:21 Lymph # (Auto) 3.1 10^3/uL (0.8-4.8) 06/08/22 11:21 Morrill # (Auto) 0.6 10^3/uL (0.2-0.9) 06/08/22 11:21 Eos # (Auto) 0.2 10^3/uL (0.0-0.8) 06/08/22 11:21 Baso # (Auto) 0.0 10^3/uL (0.0-0.1) 06/08/22 11:21 Nucleated RBC % (auto) 0 % 06/08/22 11: Nucleated RBCs # 0.0 /100WBC 06/08/22 11:21 Sodium 142 mmol/L (136-145) 06/08/22 11:21 Potassium 3.1 mmol/L (3.5-5.1) L 06/08/22 11:21 Chloride 104 mmol/L (98-107) 06/08/22 11:21 Carbon Dioxide 21 mmol/L (22-29) L 06/08/22 11:21 Anion Gap 20.1 (5-19) H 06/08/22 11:21 BUN 34 mg/dL (8-23) H 06/08/22 11:21 Creatinine 1.5 mg/dL (0.5-0.9) H 06/08/22 11:21 GFR Calculation Not Reportable 06/08/22 11:21 Glucose 93 mg/dL (65-115) 06/08/22 11:21 Calculated Osmolality 301 mOsm/kg (285-295) H 06/08/22 11:21 Calcium 9.8 mg/dL (8.5-10.5) 06/08/22 11:21 Total Bilirubin 0.2 mg/dL (0.15-1.2) 06/08/22 11:21 AST 10 U/L (0-32) 06/08/22 11:21 ALT < 5 U/L (0-33) 06/08/22 11:21 Alkaline Phosphatase 110 U/L (35-105) H 06/08/22 11:21 Troponin T Baseline 10 ng/L (0-10) 06/08/22 11:21 Troponin T 120 Minute 8.54 ng/L (0-10) 06/08/22 13:47 Delta Troponin T -1.46 ABS# (0-10) L 06/08/22 13:47 Total Protein 7.8 g/dL (6.6-8.7) 06/08/22 11:21 Albumin 4.4 g/dL (3.5-5.2) 06/08/22 11:21 Globulin 3.4 g/dL (1.3-4.6) 06/08/22 11:21 EKG Data EKG 1: EKG Interpretation Date: 06/08/22 Computer Generated Interpretation: [address] [address] Electrocardiograph Report Signed Patient: Donya Carpio Unit #: [id number] : 1940 Age/Sex: 81 / F ADM Date: 06/08/22 Loc: ER Room/Bed: Attending Dr: Ordering Provider/Ordering MD: Osito Martin Date of Service: 06/08/22 Procedure(s): ECG 12 lead EKG Accession Number(s): [id number] Report Number: [id number] ? [facility] ? Test Date:? ? 2022-06-08 Pat Name: ? ? Donya Carpio ? ? ? Department: ? Patient ID: ? [id number] ? Room: ? Gender: ? ? ? Female ? History Faculty Member: ? :? 1940 ? Requested By: Osito Martin Order Number: [id number]? Reading : ? Carlos Erazo M.D. ? Measurements Intervals? [place]? Rate: ? 62 ? P:? 64 LA: ? 166? QRS:? 5 QRSD: ? 106? T:? 52 QT: ? 398? QTc:? 405? 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 [email or web address] Dictated By: Carlos Erazo MD Signed By: Carlos rEazo MD Signed Date/Time: 06/08/22 1520 DD/ 1201 Discharge Plan Discharge Patient Disposition: Home Clinical Impression: Bronchitis Condition: Stable Prescriptions: New albuterol sulfate 90 mcg/actuation HFA aerosol inhaler 2 inh inhalation Q6H PRN (Reason: shortness of breath or wheezing) Qty: 8.5 0RF benzonatate 100 mg capsule 100 mg PO Q6H PRN (Reason: cough) Qty: 20 0RF No Action nitroglycerin 0.4 mg tablet, sublingual 0.4 mg SUBLINGUAL Q5M PRN (Reason: chest pain) Qty: 30 3RF mupirocin 2 % ointment 1 applic topical BID Qty: 22 1RF Rx Instructions: Apply to affected area(s) until healed. imiquimod 5 % cream in packet 1 applic topical ONCE PRN (Reason: skin cancer) Qty: 24 1RF Rx Instructions: apply thin film to Saturday-Saturday (off weekends) for 6 weeks. albuterol sulfate 90 mcg/actuation HFA aerosol inhaler 1 inh inhalation QID PRN (Reason: Shortness Of Breath) Qty: 8.5 2RF ferrous gluconate 236 mg (27 mg iron) tablet 236 mg PO DAILY Qty: 30 0RF citalopram 20 mg tablet 20 mg PO BID Qty: 60 1RF methylprednisolone [Medrol (Kelvin)] 4 mg tablets,dose pack See Rx Instructions PO PER PKG DIR Qty: 21 0RF Rx Instructions: PO PER PKG DIR azithromycin [Zithromax Z-Kelvin] 250 mg tablet See Rx Instructions PO .COMPLEX Qty: 6 0RF Rx Instructions: For 250 mg dose pack: take 500 mg today (day 1), then 250 mg for 4 days (days 2-5) PO ezetimibe [Zetia] 10 mg tablet 10 mg PO DAILY Qty: 90 3RF Repatha SureClick 140 mg/mL pen injector 140 mg SUBCUT .[id number] Qty: 2 11RF amlodipine 2.5 mg tablet See Rx Instructions .ROUTE .COMPLEX Qty: 90 0RF Dose Instruction: TAKE 1 TABLET BY MOUTH EVERY MORNING Rx Instructions: TAKE 1 TABLET BY MOUTH EVERY MORNING gemfibrozil 600 mg tablet See Rx Instructions .ROUTE .COMPLEX Qty: 180 0RF Dose Instruction: TAKE 1 TABLET BY MOUTH TWICE DAILY Rx Instructions: TAKE 1 TABLET BY MOUTH TWICE DAILY hydrochlorothiazide 25 mg tablet See Rx Instructions .ROUTE .COMPLEX Qty: 90 0RF Dose Instruction: TAKE 1 TABLET BY MOUTH EVERY MORNING Rx Instructions: TAKE 1 TABLET BY MOUTH EVERY MORNING isosorbide mononitrate 60 mg tablet extended release 24 hr 30 mg PO BID Qty: 90 2RF Rx Instructions: 340b clopidogrel 75 mg tablet See Rx Instructions .ROUTE .COMPLEX Qty: 90 0RF Dose Instruction: TAKE 1 TABLET BY MOUTH DAILY Rx Instructions: TAKE 1 TABLET BY MOUTH DAILY pantoprazole 40 mg tablet,delayed release (DR/EC) See Rx Instructions .ROUTE .COMPLEX Qty: 60 0RF Dose Instruction: TAKE 1 TABLET BY MOUTH TWICE DAILY Rx Instructions: TAKE 1 TABLET BY MOUTH TWICE DAILY cholecalciferol (vitamin D3) 25 mcg (1,000 unit) capsule 1,000 unit PO QAM Vitamin B-12 1 tab PO QAM Adult Low Dose Aspirin 81 mg tablet,delayed release (DR/EC) 162 mg PO BEDTIME ondansetron 4 mg tablet,disintegrating 4 mg PO TID PRN (Reason: nausea and vomiting) Qty: 10 0RF Discharge Orders: Discharge ED (Routine); Ordered 06/08/22 Ordered By: Osito Martin Referrals: Abbey Oh FNP [Primary Care Provider] - Discharge Diet: Regular Discharge Activity: Increase activity as tolerated Patient Instructions: Acute Bronchitis (ED) Activity Restrictions/Additional Instructions: Follow-up with medical provider as directed in the next 5 to 7 days for reevaluation. Take medications as prescribed. Continue taking your antibiotic and methylprednisolone as previously prescribed. You can skip your dose of methylprednisolone today since she received steroid dose here in the ED. Take [id number] Tylenol or ibuprofen for any fevers. Return to the ER or your medical provider if condition worsens. Please read and understand discharge instructions. Thank you for choosing [facility] for your healthcare needs today. Please realize this is an emergency room and that we are providing you with a medical screening exam and this may not be complete and all inclusive of all the testing and or work up that you may need to determine your ailment or severity of your illness. It is very important that you follow up as instructed or that you return to the Emergency Department should you have concerns or if your condition changes or worsens in any way. Coding Level of Care Code ED Dock Operations Supervisor for Rajat [place]ows
[2022-06-08] MEDS: cefTRIAXone 1,000 MG in sodium chloride 0.9% (plus) 50 ML 100 MG IV (13:10)
[2022-06-08] MEDS: potassium chloride ER 20 mEq Tablet PO (13:10)
[2022-06-08] MEDS: sodium chloride 0.9% 500 ML 999 ML IV (13:11)
[2022-06-08 13:16] VITALS: BP 149/50; PULSE 65; RESP 16; TEMP 36.5; O2SAT 95
[2022-06-08] MEDS: ipratropium-albuterol 3 mL Neb 6 ML INHALATION (14:09)
[2022-06-08 14:11] VITALS: PULSE 64; O2SAT 96
[2022-06-08 14:15] VITALS: PULSE 67
[2022-06-08 14:19] LABS: Troponin 5 2HR 8.54 ng/L (0-10)
[2022-06-08 14:36] LABS: Troponin 5 2HR Delta -1.46 ABS# (0-10)
[2022-06-08 14:55] VITALS: PULSE 65; RESP 14; TEMP 36.7; O2SAT 97
== END 2022-06-08 14:53 | disposition home or self-care (01) ==
PROVIDERS: Emergency Provider Physician Assistant; PCP Nurse Practitioner Family
DX: J40 Bronchitis, not specified as acute or chronic (principal); I47.1 Supraventricular tachycardia; I25.10 Atherosclerotic heart disease of native coronary artery without angina pectoris; J44.9 Chronic obstructive pulmonary disease, unspecified; E78.5 Hyperlipidemia, unspecified; I10 Essential (primary) hypertension; Z86.73 Personal history of transient ischemic attack (TIA), and cerebral infarction without residual deficits; Z95.5 Presence of coronary angioplasty implant and graft; Z82.3 Family history of stroke; Z82.49 Family history of ischemic heart disease and other diseases of the circulatory system
CPT/HCPCS: 36415; 71045; 80053; 84484; 85025; 93005; 94640; 96374; 96375; 99285; J0696; J2930; J7040

== ENCOUNTER → 2022-06-19 13:27 | Outpatient (BNVA) | payer MEDICARE, SELFPAY | PROVIDERS: PCP Nurse Practitioner Family; Visit Provider Nurse Practitioner Family | DX: I25.10 Atherosclerotic heart disease of native coronary artery without angina pectoris (principal); D64.9 Anemia, unspecified; Z79.01 Long term (current) use of anticoagulants; I10 Essential (primary) hypertension; Z79.82 Long term (current) use of aspirin | CPT/HCPCS: 36415; 80061; 85025; 99214 ==

== ENCOUNTER 2022-08-07 11:00 | Emergency (ER) | payer MEDICARE, OTHER, SELFPAY ==
[2022-08-07 11:07] VITALS: BP 107/88; PULSE 67; RESP 15; TEMP 36.7; O2SAT 96; BMI 29.2
--- NOTE | 2022-08-07 11:07 | ED_ITS ---
HPI - General Adult General: Chief complaint: GI Bleed Stated complaint: COUGHING UP BLOOD Time Seen by Provider: 08/07/22 11:06 History of Present Illness: Ms. Carpio is an 81-year-old lady with history of CAD with stent on aspirin and Plavix presenting to the emergency department due to concern for hemoptysis. She reports intermittent cough for few weeks and starting appr oximately 4 days ago had blood in her sputum. Initially this was dark red however subsequently became mild however has persisted. Today she had another episode in addition to becoming lightheaded and nauseous with dark emesis after drinking coffee. She notes associated left anterior chest discomfort which is worse with coughing and palpation. Intensity symptoms is moderate. Course has persisted. No other specific changes in health, exacerbating, or alleviating factors identified. Onset (ago): day(s) Location: chest Severity: mild Quality: aching Pain Consistency: intermittent Relieving factors: none Exacerbating factors: movement and other (Cough) Associated symptoms: Reports cough, malaise, short of breath and other Review of Systems General: Reports: 10 or more systems reviewed and unremarkable except in HPI and below Const: Reports: malaise PFSH ED PFSH: Medical History CAD (coronary artery disease) COPD (chronic obstructive pulmonary disease) Depression Hx-TIA (transient ischemic attack) Hyperlipidemia Hypertension Mucopurulent chronic bronchitis Primary osteoarthritis of left knee Surgical History H/O hysterectomy with oophorectomy History of appendectomy History of hip replacement left Hx of right coronary artery stent placement Stented coronary artery 11/17 Family History Brother CAD (coronary artery disease) Chronic kidney disease (CKD) Diabetes Hypertension Lung disease Stroke Family/Other CAD (coronary artery disease) Hypertension Lung disease Stroke Mother Cancer Hypertension Sister Cancer CAD (coronary artery disease) Dementia Hypertension Stroke Daughter Diabetes Sister No problems noted. Father Hypertension Lung disease Stroke Social History Smoking and tobacco status: never smoked Second hand smoke exposure: Yes Alcohol intake: never Substance/Drug Use: never Adopted: No Lives independently: Yes Household members: none Housing: House Current occupational status: unemployed Physical Exam Const: COMMON NORMALS: alert GENERAL APPEARANCE: cooperative and well developed HENMT: COMMON NORMALS: normocephalic and atraumatic HEAD & SCALP: normocephalic and atraumatic Eye: COMMON NORMALS: conjunctivae normal CONJUNCTIVA: Yes conjunctivae normal SCLERA: sclerae normal Neck/C-Spine: COMMON NORMALS: supple GENERAL: Yes trachea midline Resp: COMMON NORMALS: normal respiratory effort and clear to auscultation bilaterally EFFORT & INSPECTION: Yes able to speak in complete sentences AUSCULTATION: clear to auscultation bilaterally Cardio: COMMON NORMALS: regular rate and regular rhythm RATE: regular rate RHYTHM: regular rhythm GI: COMMON NORMALS: Soft to palpation PALPATION: Yes Soft to palpation and No Tenderness to palpation present (GI) Extremity: GENERAL: Yes normal exam except as noted and No edema Neuro: COMMON NORMALS: moves all extremities SENSORIUM/ORIENTATION: Yes alert and No Orientation impaired Psych: COMMON NORMALS: mental status grossly normal and Normal thought process present THOUGHT PROCESS: Normal thought process present Course Vital Signs: Vital signs: Vital Signs Temperature 98.1 F 08/07/22 11:07 Pulse Rate 76 08/07/22 15:24 Respiratory Rate 18 08/07/22 15:24 Blood Pressure 107/88 08/07/22 15:24 Pulse Oximetry 97 08/07/22 15:24 Oxygen Delivery Me thod Room Air 08/07/22 11:12 MDM - General Adult Medical Decision Making 81-year-old lady presenting to the emergency department for evaluation of emesis after cough for few days. Exam as above. Vitally satisfactory and patient is nontoxic in appearance. EKG demonstrate sinus rhythm with possible axis deviation, normal intervals, no STEMI. Labs notable for no leukocytosis, normocytic anemia appears similar to prior. Coags normal. Metabolic panel with mildly elevated creatinine also similar to prior. D-dimer is elevated. Negative range 2-hour delta troponin. Chest x-ray with no lobar consolidation or pneumothorax. Given description of symptoms as well as possible reported hematemesis as well as hemoptysis CT imaging is appropriate. CT is negative for evidence of active hemorrhage, no evidence of pulmonary embolism. Incidental findings of aortic dilatation were discussed. Patient treated with IV fluids and improved on reassessment and she has not had recurrence of hemoptysis. Given description of symptoms and clinical history including cough proceeding hemoptysis as well as satisfactory vital signs and findings on laboratory studies. Etiology of patient's symptoms is COPD/bronchitis exacerbation. This is appropriate to treat in outpatient setting with steroids, antibiotics, albuterol. The results of ED evaluation were discussed with the patient including prescriptions and/or symptomatic cares (if applicable) including appropriate and responsible use, followup plan, and return precautions. The patient verbalized understanding and felt safe for discharge. Medical Records I reviewed the patient's medical records. Lab Data I reviewed the patient's lab results. 08/07/22 11:28 08/07/22 11:28 Radiology Impressions Chest X-Ray 08/07/22 11:16 IMPRESSION: No acute findings. Elevated right hemidiaphragm Chest/Abdomen/Pelvis CTA 08/07/22 12:52 IMPRESSION: 1. No evidence of pulmonary embolus. 2. Lungs are well aerated. No acute pulmonary infiltrates. 3. Moderate aortic atheromatous disease in the descending thoracic aorta and upper abdominal aorta. Slightly aneurysmal lower thoracic and upper abdominal aorta measuring 3.6 x 2.9 CM. 4. Postoperative changes involving the sigmoid. Postoperative changes prior hemicolectomy. 5. No other acute findings Laboratory Results WBC 7.9 10^3/uL (4.0-10.0) 08/07/22 11:28 RBC 3.84 10^6/uL (4.1-5.3) L 08/07/22 11:28 Hgb 11.4 g/dL (11.5-15.3) L 08/07/22 11:28 Hct 35.9 % (37.0-47.0) L 08/07/22 11:28 MCV 93.5 fl (81-99) 08/07/22 11:28 MCH 29.7 pg (28.0-34.0) 08/07/22 11:28 MCHC 31.8 g/dL (30.0-36.0) 08/07/22 11:28 RDW 14.9 % (12.1-15.1) 08/07/22 11:28 Plt Count 380 10^3/cmm (130-400) 08/07/22 11:28 MPV 10.3 fL (7.4-10.4) 08/07/22 11:28 Neut % (Auto) 68.9 % 08/07/22 11:28 Lymph % (Auto) 21.8 % 08/07/22 11:28 [place] % (Auto) 4.3 % 08/07/22 11:28 Eos % (Auto) 4.2 % 08/07/22 11:28 Baso % (Auto) 0.3 % 08/07/22 11:28 Neut # (Auto) 5.45 10^3/uL (1.8-7.7) 08/07/22 11:28 Lymph # (Auto) 1.7 10^3/uL (0.8-4.8) 08/07/22 11:28 [place] # (Auto) 0.3 10^3/uL (0.2-0.9) 08/07/22 11:28 Eos # (Auto) 0.3 10^3/uL (0.0-0.8) 08/07/22 11:28 Baso # (Auto) 0.0 10^3/uL (0.0-0.1) 08/07/22 11:28 Nucleated RBC % (auto) 0 % 08/07/22 11:28 Nucleated RBCs # 0.0 /100WBC 08/07/22 11:28 PT 14.10 SECONDS (12.1-14.9) 08/07/22 11:28 INR 1.05 (0.8-1.2) 08/07/22 11:28 APTT 29.6 SECONDS (23.9-36.7) 08/07/22 11:28 D-Dimer 0.79 ug/mIFEU (0-0.59) H 08/07/22 11:28 Sodium 140 mmol/L (136-145) 08/07/22 11:28 Potassium 4.0 mmol/L (3.5-5.1) 08/07/22 11:28 Chloride 102 mmol/L (98-107) 08/07/22 11:28 Carbon Dioxide 23 mmol/L (22-29) 08/07/22 11:28 Anion Gap 19.0 (5-19) 08/07/22 11:28 BUN 24 mg/dL (8-23) H 08/07/22 11:28 Creatinine 1.6 mg/dL (0.5-0.9) H 08/07/22 11:28 GFR Calculation Not Reportable 08/07/22 11:28 Glucose 109 mg/dL (65-115) 08/07/22 11:28 Calculated Osmolality 295 mOsm/kg (285-295) 08/07/22 11:28 Calcium 9.8 mg/dL (8.5-10.5) 08/07/22 11:28 Total Bilirubin 0.3 mg/dL (0.15-1.2) 08/07/22 11:28 AST 13 U/L (0-32) 08/07/22 11:28 ALT 7 U/L (0-33) 08/07/22 11:28 Alkaline Phosphatase 113 U/L (35-105) H 08/07/22 11:28 Troponin T Baseline 11 ng/L (0-10) H 08/07/22 11:28 Troponin T 120 Minute 10.20 ng/L (0-10) H 08/07/22 14:15 Delta Troponin T -0.80 ABS# (0-10) L 08/07/22 14:15 Total Protein 7.3 g/dL (6.6-8.7) 08/07/22 11:28 Albumin 4.7 g/dL (3.5-5.2) 08/07/22 11:28 Globulin 2.6 g/dL (1.3-4.6) 08/07/22 11:28 Discharge Plan Discharge Patient Disposition: Home Clinical Impression: Cough, Hemoptysis, Bronchitis, CKD (chronic kidney disease), Normocytic anemia, Aortic aneurysm Condition: Stable Prescriptions: New doxycycline hyclate 100 mg capsule 100 mg PO BID 10 Days Qty: 20 0RF prednisone 50 mg tablet 50 mg PO DAILY 5 Days Qty: 5 0RF albuterol sulfate 90 mcg/actuation HFA aerosol inhaler 2 inh inhalation Q4H PRN (Reason: shortness of breath or wheezing) Qty: 8.5 0RF No Action nitroglycerin 0.4 mg tablet, sublingual 0.4 mg SUBLINGUAL Q5M PRN (Reason: chest pain) Qty: 30 3RF mupirocin 2 % ointment 1 applic topical BID Qty: 22 1RF Rx Instructions: Apply to affected area(s) until healed. imiquimod 5 % cream in packet 1 applic topical ONCE PRN (Reason: skin cancer) Qty: 24 1RF Rx Instructions: apply thin film to Saturday-Saturday (off weekends) for 6 weeks. isosorbide mononitrate 60 mg tablet extended release 24 hr 30 mg PO BID Qty: 90 2RF Rx Instructions: 340b ezetimibe [Zetia] 10 mg tablet 10 mg PO DAILY Qty: 90 1RF IRON HP 27MG TABLETS See Rx Instructions .ROUTE .COMPLEX Qty: 100 0RF Dose Instruction: TAKE 1 TABLET BY MOUTH DAILY Rx Instructions: TAKE 1 TABLET BY MOUTH DAILY cholecalciferol (vitamin D3) 25 mcg (1,000 unit) capsule 1,000 unit PO QAM cyanocobalamin (vitamin B-12) [Vitamin B-12] 1,000 mcg Tablet 1,000 mcg PO DAILY Qty: 0 aspirin [Adult Low Dose Aspirin] 81 mg tablet,delayed release (DR/EC) 162 mg PO BEDTIME albuterol sulfate 90 mcg/actuation HFA aerosol inhaler 2 inh inhalation Q6H PRN (Reason: shortness of breath or wheezing) Qty: 8.5 0RF benzonatate 100 mg capsule 100 mg PO Q6H PRN (Reason: cough) Qty: 20 0RF amlodipine 2.5 mg tablet 2.5 mg PO DAILY clopidogrel 75 mg tablet 75 mg PO DAILY citalopram 20 mg tablet 20 mg PO BID gemfibrozil 600 mg tablet 600 mg PO BID pantoprazole 40 mg tablet,delayed release (DR/EC) 40 mg PO BID hydrochlorothiazide 25 mg tablet 25 mg PO DAILY Repatha SureClick 140 mg/mL pen injector 140 mg SUBCUT Q14D Discharge Orders: Discharge ED (Routine); Ordered 08/07/22 Ordered By: Shaquille Sadler Referrals: Abbey Oh FNP [Primary Care Provider] - Discharge Diet: Usual diet Discharge Activity: Increase activity as tolerated Patient Instructions: Chronic Kidney Disease (ED), Acute Bronchitis (ED), Co ughing Up Blood (Hemoptysis) (ED), Anemia (ED) Activity Restrictions/Additional Instructions: Thank you for visiting the emergency department. You were seen and evaluated for coughing up blood and possible vomiting blood. The exact cause your symptoms is unclear though may be related to bronchitis. I will prescribe steroids and antibiotics. Please also use your albuterol metered-dose inhaler 2 puffs every 4 hours for 24 hours followed by 2 puffs every 6 hours for 24 hours followed by 2 puffs every 8 hours for 24 hours and then return to the normal schedule. As discussed you do have some baseline anemia as well as chronic kidney disease. You do have mild aneurysmal dilation of the aorta which should be followed by your primary care provider. Please follow-up with your primary care provider. Return to the emergency department for worsening or uncontrolled symptoms, or anything else that you are concerned about and feel needs emergency department evaluation. 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
[2022-08-07 11:12] VITALS: BP 107/88; PULSE 89; O2SAT 93
--- NOTE | 2022-08-07 11:16 | XRR_ITS ---
PROCEDURE INFORMATION: Exam: XR Chest Exam date and time: 08/07/2022 11:51 AM Age: 81 years old Clinical indication: Cough with hemorrhage; Prior surgery; Surgery date: 6+ months; Surgery type: Stent; Additional info: Hemoptysis TECHNIQUE: Imaging protocol: Radiologic exam of the chest. Views: 1 view. COMPARISON: CR XR chest 1V portable [id number] 06/08/2022 10:22 AM FINDINGS: Lungs: Low lung volumes. The lungs are otherwise clear. No consolidation. Pleural spaces: Elevated right hemidiaphragm No pleural effusion. No pneumothorax. Heart/Mediastinum: Unremarkable. No cardiomegaly. Bones/joints: Unremarkable. XR/XR chest 1V portable [id number] IMPRESSION: No acute findings. Elevated right hemidiaphragm
[2022-08-07 11:39] LABS: Basophils % 0.3 %; Eosinophils # 0.3 10^3/uL (0.0-0.8); Eosinophils % 4.2 %; Hematocrit 35.9 % (37.0-47.0); Hemoglobin 11.4 g/dL (11.5-15.3); Lymphocytes # 1.7 10^3/uL (0.8-4.8); Lymphocytes % 21.8 %; Mean Corpuscular HGB Conc 31.8 g/dL (30.0-36.0); Mean Corpuscular Hemoglobin 29.7 pg (28.0-34.0); Mean Corpuscular Volume 93.5 fl (81-99); Mean Platelet Volume 10.3 fL (7.4-10.4); Monocytes # 0.3 10^3/uL (0.2-0.9); Monocytes % 4.3 %; Neutrophils # 5.45 10^3/uL (1.8-7.7); Neutrophils % 68.9 %; Nucleated Red Blood Cells % 0 %; Platelet Count 380 10^3/cmm (130-400); Red Blood Count 3.84 10^6/uL (4.1-5.3); Red Cell Distribution Width 14.9 % (12.1-15.1); White Blood Count 7.9 10^3/uL (4.0-10.0)
--- NOTE | 2022-08-07 11:39 | ECG_ITS ---
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 Measurements Intervals Industry Rate: 65 P: 132 AR: 169 QRS: 181 QRSD: 91 T: 149 QT: 412 QTc: 431 Interpretive Statements SINUS RHYTHM ARM LEADS REVERSED [INVERTED P AND QRS IN I] Compared to ECG 06/08/2022 12:01:37 T-wave abnormality no longer present Electronically Signed On 08-07-2022 11:52:45 CDT by Randy Spivey M.D. [id number]
[2022-08-07 11:52] LABS: INR 1.05 (0.8-1.2)
[2022-08-07 11:53] LABS: Partial Thromboplastin Time 29.6 SECONDS (23.9-36.7)
[2022-08-07 11:57] LABS: Alanine Aminotransferase 7 U/L (0-33); Albumin Level 4.7 g/dL (3.5-5.2); Alkaline Phosphatase 113 U/L (35-105); Aspartate Amino Transferase 13 U/L (0-32); Blood Urea Nitrogen 24 mg/dL (8-23); Calcium 9.8 mg/dL (8.5-10.5); Carbon Dioxide 23 mmol/L (22-29); Chloride 102 mmol/L (98-107); Globulin 2.6 g/dL (1.3-4.6); Glucose 109 mg/dL (65-115); Osmolality Calculated 295 mOsm/kg (285-295); Sodium 140 mmol/L (136-145); Total Bilirubin 0.3 mg/dL (0.15-1.2); Total Protein 7.3 g/dL (6.6-8.7)
[2022-08-07 11:58] LABS: Troponin(5th) Baseline 11 ng/L (0-10)
[2022-08-07 12:30] VITALS: RESP 16; O2SAT 96
[2022-08-07 12:51] LABS: D Dimer 0.79 ug/mIFEU (0-0.59)
--- NOTE | 2022-08-07 12:52 | CT_ITS ---
WS: [id number] CTA CHEST ABDOMEN AND PELVIS TECHNIQUE: Noncontrast plus contrast enhanced CTA of the chest, abdomen, and pelvis with coronal and sagittal reformatted images and additional MIP Images. CLINICAL INFORMATION: hemoptysis, possible GI bleed COMPARISON: None. DLP: 2094.[address] scans at [facility] use at least one of these dose optimization techniques: automated e xposure control; mA and/or kV adjustment per patient size (includes targeted exams where dose is matc hed to clinical indication); or iterative reconstruction. FINDINGS: Proximal main pulmonary arteries are normal. Normal segmental and subsegmental pulmonary arteries. No evidence of pulmonary embolus.Normal caliber thoracic aorta. Aortic calcification. Coronary calcification. Normal caliber descending thoracic aorta. No mediastina l or hilar lymphadenopathy. No axillary lymphadenopathy. Hypertrophic changes thoracic spine. Lungs a re well aerated. No acute pulmonary infiltrates. No focal pneumonia or pleural fluid. Calcified granu ivania RIGHT lower lobe. Diffuse fatty infiltration liver. Splenic granulomas. Normal visualized pancreas. Adrenal glands are normal. Normal renal parenchymal enhancement. No hydronephrosis. Moderate atheromatous disease abdomi nal aorta. Slightly aneurysmal lower thoracic and upper abdominal aorta measuring 3.6 x 2.9 CM. Shelby c and SMA are patent. Postoperative changes LEFT BREANNE degrades images in the pelvis. Postoperative changes at the sigmoid colon. No evidence of high-grade small or large bowel obstructio n. Normal GE junction.Moderate spondylitic changes lumbar spine. CT/CT [facility] [id number] IMPRESSION: 1. No evidence of pulmonary embolus. 2. Lungs are well aerated. No acute pulmonary infiltrates. 3. Moderate aortic atheromatous disease in the descending thoracic aorta and u pper abdominal aorta. Slightly aneurysmal lower thoracic and upper abdominal ao rta measuring 3.6 x 2.9 CM. 4. Postoperative changes involving the sigmoid. Postoperative changes prior he micolectomy. 5. No other acute findings
--- NOTE | 2022-08-07 13:35 | ECG_ITS ---
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 Measurements Intervals [place] Rate: 70 P: 43 OR: 169 QRS: 11 QRSD: 88 T: 58 QT: 368 QTc: 399 Interpretive Statements SINUS RHYTHM WITH FREQUENT SUPRAVENTRICULAR PREMATURE COMPLEXES POSSIBLE ANTERIOR MYOCARDIAL INFARCTION , PROBABLY OLD [30 ms Q WAVE IN V3/V4, OR R < 0.2 mV IN V4] Compared to ECG 08/07/2022 11:39:52 Myocardial infarct finding now present Electronically Signed On 08-07-2022 16:59:48 CDT by Randy Spivey M.D. [id number]
[2022-08-07] MEDS: iohexol 350 mg/mL 500 mL Btl (per mL) IV (13:44)
[2022-08-07 14:00] VITALS: PULSE 86; RESP 18
[2022-08-07] MEDS: sodium chloride 0.9% 500 ML 999 ML IV (14:35)
[2022-08-07 15:24] VITALS: BP 107/88; PULSE 76; RESP 18; O2SAT 97
== END 2022-08-07 15:26 | disposition home or self-care (01) ==
PROVIDERS: Emergency Provider Emergency Medicine; PCP Nurse Practitioner Family
DX: R04.2 Hemoptysis (principal); J44.9 Chronic obstructive pulmonary disease, unspecified; D64.9 Anemia, unspecified; I71.9 Aortic aneurysm of unspecified site, without rupture; I12.9 Hypertensive chronic kidney disease with stage 1 through stage 4 chronic kidney disease, or unspecified chronic kidney disease; N18.9 Chronic kidney disease, unspecified; I25.10 Atherosclerotic heart disease of native coronary artery without angina pectoris; Z86.73 Personal history of transient ischemic attack (TIA), and cerebral infarction without residual deficits; E78.5 Hyperlipidemia, unspecified; Z77.22 Contact with and (suspected) exposure to environmental tobacco smoke (acute) (chronic); Z79.82 Long term (current) use of aspirin; Z79.02 Long term (current) use of antithrombotics/antiplatelets
CPT/HCPCS: 36415; 71045; 71275; 74174; 80053; 84484; 85025; 85378; 85610; 85730; 93005; 99285; J7040; Q9967

== ENCOUNTER → 2022-08-15 09:54 | Outpatient (BNVA) | payer MEDICARE, OTHER, SELFPAY | PROVIDERS: PCP Nurse Practitioner Family; Visit Provider Nurse Practitioner Family | DX: I71.20 Thoracic aortic aneurysm, without rupture, unspecified (principal); I25.10 Atherosclerotic heart disease of native coronary artery without angina pectoris; I10 Essential (primary) hypertension | CPT/HCPCS: 99214 ==

== ENCOUNTER → 2022-08-17 13:32 | Outpatient (BNVA) | payer MEDICARE, OTHER, SELFPAY | PROVIDERS: PCP Nurse Practitioner Family; Visit Provider Surgery | DX: D50.9 Iron deficiency anemia, unspecified (principal); K92.0 Hematemesis; K21.9 Gastro-esophageal reflux disease without esophagitis | CPT/HCPCS: 99203 ==

== ENCOUNTER 2022-08-21 07:44 | Outpatient (CLI) | payer MEDICARE, OTHER, SELFPAY ==
--- NOTE | 2022-08-21 08:17 | MM_ITS ---
WS: [id number] Bilateral screening 3D tomosynthesis digital mammogram, 08/21/2022 Clinical Data: SCREENING Comparison: 08/21/2016, 12/31/2013, 09/16/2012. Findings: The breast parenchymal pattern shows fibroglandular tissue. No spiculated masses or clustered calcifi cations are seen. There are no secondary signs of carcinoma. There are benign calcifications and vasc ular calcifications in both breasts. There are lymph nodes in both axilla. MM/[place] [id number] Impression: 1. Negative bilateral mammogram unchanged. 2. Recommend annual screening mammograms. BIRADS: 1-Negative FOLLOW UP: 1 Year Follow-up The CAD order checker packer processer was used.
== END 2022-08-21 07:45 | disposition home or self-care (01) ==
LOC: RAD 07:50
PROVIDERS: PCP Nurse Practitioner Family; Visit Provider Nurse Practitioner Family
DX: Z12.31 Encounter for screening mammogram for malignant neoplasm of breast (principal)
CPT/HCPCS: 77063; 77067

== ENCOUNTER → 2022-08-22 11:19 | Outpatient (BNVA) | payer MEDICARE, OTHER, SELFPAY | PROVIDERS: PCP Nurse Practitioner Family; Visit Provider Nurse Practitioner Family | DX: I10 Essential (primary) hypertension (principal); D64.9 Anemia, unspecified | CPT/HCPCS: 80053; 85025 ==

== ENCOUNTER → 2022-08-30 13:34 | Outpatient (BNVA) | payer MEDICARE, OTHER, SELFPAY | PROVIDERS: PCP Nurse Practitioner Family; Visit Provider Nurse Practitioner Family | DX: L57.8 Other skin changes due to chronic exposure to nonionizing radiation (principal); L57.0 Actinic keratosis; L72.0 Epidermal cyst; L85.3 Xerosis cutis; L81.4 Other melanin hyperpigmentation; D22.5 Melanocytic nevi of trunk; Z71.89 Other specified counseling; Z85.828 Personal history of other malignant neoplasm of skin | CPT/HCPCS: 17000; 17003; 99213 ==

== ENCOUNTER → 2022-08-31 10:23 | Outpatient (BNVA) | payer MEDICARE, OTHER, SELFPAY | PROVIDERS: PCP Nurse Practitioner Family; Visit Provider Internal Medicine Cardiovascular Disease | DX: I25.10 Atherosclerotic heart disease of native coronary artery without angina pectoris (principal); E78.2 Mixed hyperlipidemia; I10 Essential (primary) hypertension; Z86.73 Personal history of transient ischemic attack (TIA), and cerebral infarction without residual deficits | CPT/HCPCS: 99214 ==

== ENCOUNTER 2022-09-19 09:01 | Day surgery (SDC) | payer MEDICARE, OTHER, SELFPAY ==
[2022-09-17 09:58] VITALS: BMI 29.2
[2022-09-19] MEDS: sodium chloride 0.9% 1,000 ML 30 ML IV (09:25)
[2022-09-19 09:26] VITALS: BP 143/77; PULSE 83; RESP 17; TEMP 36.4; O2SAT 96
[2022-09-19 09:29] LABS: Glucose Point of Care 121 mg/dL (70-110)
--- NOTE | 2022-09-19 10:52 | P.ANESASSM_ITS ---
Pre-Anesthetic Assessment Height/Weight: Height 1.57 m Weight 72.575 kg Temp Pulse Resp BP Pulse Ox O2 Del Method 97.5 F L 83 17 143/77 96 Room Air 09/19/22 09:26 09/19/22 09:26 09/19/22 09:26 09/19/22 09:26 09/19/22 09:26 09/19/22 09:26 Preop Diagnosis: Anemia Operation Date: 09/19/22 10:00 Proposed Procedures p [id number] egd [id number] colon D50.9 , K21.9, K92.0(Not Applicable) - Earl Hussein DO s Colonoscopy(Not Applicable) - Earl Hussein DO Was Beta Bucky taken within 24 hours: N/A Last intake: Intake Last Liquid Date 09/18/22 Last Liquid Time 22:00 Last Solid Date 09/17/22 Last Solid Time 23:30 Social No alcohol and No tobacco Exam alert, oriented x 3, clear to auscultation bilaterally and regular rate & rhythm Airway Submandibular: within normal limits Cervical ROM: within normal limits Mallampati: Class II Dentition: false Comments: Comments: Upper plate. few teeth on bottom, nothing loose History/ROS No significant history except as noted and No significant complaints Pulmonary Chronic Obstructive Pulmonary Disease and Shortness of Breath CV/HEM Coronary Artery Disease and Myocardial Infarction None reported Hepatic None reported GI Gastroesophageal Reflux Disease Metabolic None reported Musc/skel Osteoarthritis/DJD Neuropsych None reported Anesthetic Plan ASA status: 3 Anesthesia: Anesthesia Evaluation and MAC Risk of > 500 ml blood loss (7ml/kg in children): No Medications/Allergies Home Medications Medication Instructions Recorded Confirmed Last Taken Type nitroglycerin 0.4 mg sublingual 0.4 mg sublingual Q5M PRN chest 07/22/20 09/17/22 Unknown Rx tablet pain #30 tabs cholecalciferol (vitamin D3) 25 1,000 unit PO QAM 11/15/20 09/17/22 09/17/22 History mcg (1,000 unit) capsule aspirin 81 mg tablet,delayed 162 mg PO BEDTIME 03/16/21 09/17/22 09/17/22 History release (Adult Low Dose Aspirin) cyanocobalamin (vitamin B-12) 1,000 mcg PO DAILY ##0 03/16/21 09/17/22 09/17/22 History 1,000 mcg tablet (Vitamin B-12) isosorbide mononitrate 60 mg 30 mg PO BID #90 tabs 01/22/22 09/17/22 09/19/22 05:30 Rx tablet,extended release 24 hr benzonatate 100 mg capsule 100 mg PO Q6H PRN cough #20 caps 06/08/22 09/17/22 09/17/22 Rx ezetimibe 10 mg tablet (Zetia) 10 mg PO DAILY #90 tabs 06/14/22 09/17/22 0 09/17/22 Rx albuterol sulfate 90 mcg/actuation 2 inh inhalation Q4H PRN shortness 08/07/22 09/17/22 09/17/22 Rx aerosol inhaler of breath or wheezing #8.5 grams evolocumab 140 mg/mL subcutaneous 140 mg SUBCUT Q14D 08/07/22 09/17/22 09/17/22 History pen injector (Holly Alvarez) acetaminophen 325 mg tablet 325 mg PO QID PRN Pain 08/31/22 09/17/22 09/17/22 History IRON HP 27MG TABLETS 27 mg PO DAILY 09/17/22 09/17/22 09/17/22 History amlodipine 2.5 mg tablet 2.5 mg PO DAILY 09/17/22 09/17/22 09/19/22 05:30 History citalopram 20 mg tablet 20 mg PO BID 09/17/22 09/17/22 09/17/22 History clopidogrel 75 mg tablet 75 mg PO DAILY 09/17/22 09/17/22 09/17/22 History gemfibrozil 600 mg tablet 600 mg PO BID 09/17/22 09/17/22 09/17/22 History hydrochlorothiazide 25 mg tablet 25 mg PO DAILY 09/17/22 09/17/22 09/19/22 05:30 History pantoprazole 40 mg tablet,delayed 40 mg PO BID 09/17/22 09/17/22 09/17/22 History release Allergies Allergy/AdvReac Type Severity Reaction Status Date / Time doxycycline Allergy Severe trouble Verified 09/19/22 09:15 breathing atorvastatin [From Lipitor] Allergy pain Verified 09/19/22 09:15 Penicillins Allergy hives Verified 09/19/22 09:15 Sulfa (Sulfonamide Allergy rash Verified 09/19/22 09:15 Antibiotics) Current Medications Generic Name Dose Route Start Last Admin Trade Name Jonathanq PRN Reason Stop Dose Admin Sodium Chloride 1,000 mls @ 30 mls/hr 09/19/22 09:15 09/19/22 09:25 Sodium Chloride 0.9% IV 09/20/22 09:14 30 mls/hr .Q24H RAMANA Administration PFSH Anesthesia Medical History CAD (coronary artery disease) COPD (chronic obstructive pulmonary disease) Depression Hx-TIA (transient ischemic attack) Hyperlipidemia Hypertension Mucopurulent chronic bronchitis Primary osteoarthritis of left knee Surgical History H/O hysterectomy with oophorectomy History of appendectomy History of hip replacement left Hx of colectomy 4 yrs ago Hx of colonoscopy with polypectomy Hx of right coronary artery stent placement Stented coronary artery 11/17 Family History Brother CAD (coronary artery disease) Chronic kidney disease (CKD) Diabetes Hypertension Lung disease Stroke Family/Other CAD (coronary artery disease) Hypertension Lung disease Stroke Mother Cancer Hypertension Sister Cancer CAD (coronary artery disease) Dementia Hypertension Stroke Daughter Diabetes Sister No problems noted. Father Hypertension Lung disease Stroke Social History Smoking and tobacco status: never smoked Second hand smoke exposure: Yes Alcohol intake: never Substance/Drug Use: never Adopted: No Lives independently: Yes Household members: none Housing: House Current occupational status: unemployed Data Anesthesia Cardiac Studies: Echocardiogram 01/16/21 Sestamibi Stress Test (Cardiology) 03/16 Cardiac Event Monitor 03/21/21
--- NOTE | 2022-09-19 11:41 | PM.HP ---
Providers/Chief Complaint Primary Care Provider: SIVAKUMAR Holloway Chief Complaint: D50.9, K21.9, K92.0 History of Present Illness Donya Carpio is a 81 year old female here for EGD and colonoscopy Medications/Allergies Home Medications Medication Instructions Recorded Confirmed Last Taken Type nitroglycerin 0.4 mg sublingual 0.4 mg sublingual Q5M PRN chest 07/22/20 09/17/22 Unknown Rx tablet pain #30 tabs cholecalciferol (vitamin D3) 25 1,000 unit PO QAM 11/15/20 09/17/22 09/17/22 History mcg (1,000 unit) capsule aspirin 81 mg tablet,delayed 162 mg PO BEDTIME 03/16/21 09/17/22 09/17/22 History release (Adult Low Dose Aspirin) cyanocobalamin (vitamin B-12) 1,000 mcg PO DAILY ##0 03/16/21 09/17/22 09/17/22 History 1,000 mcg tablet (Vitamin B-12) isosorbide mononitrate 60 mg 30 mg PO BID #90 tabs 01/22/22 09/17/22 09/19/22 05:30 Rx tablet,extended release 24 hr benzonatate 100 mg capsule 100 mg PO Q6H PRN cough #20 caps 06/08/22 09/17/22 09/17/22 Rx ezetimibe 10 mg tablet (Zetia) 10 mg PO DAILY #90 tabs 06/14/22 09/17/22 09/17/22 Rx albuterol sulfate 90 mcg/actuation 2 inh inhalation Q4H PRN shortness 08/07/22 09/17/22 09/17/22 Rx aerosol inhaler of breath or wheezing #8.5 grams evolocumab 140 mg/mL subcutaneous 140 mg SUBCUT Q14D 08/07/22 09/17/22 09/17/22 History pen injector (Holly Alvarez) acetaminophen 325 mg tablet 325 mg PO QID PRN Pain 08/31/22 09/17/22 09/17/22 History IRON HP 27MG TABLETS 27 mg PO DAILY 09/17/22 09/17/22 09/17/22 History amlodipine 2.5 mg tablet 2.5 mg PO DAILY 09/17/22 09/17/22 09/19/22 05:30 History citalopram 20 mg tablet 20 mg PO BID 09/17/22 09/17/22 09/17/22 History clopidogrel 75 mg tablet 75 mg PO DAILY 09/17/22 09/17/22 09/17/22 History gemfibrozil 600 mg tablet 600 mg PO BID 09/17/22 09/17/22 09/17/22 History hydrochlorothiazide 25 mg tablet 25 mg PO DAILY 09/17/22 09/17/22 09/19/22 05:30 History pantoprazole 40 mg tablet,delayed 40 mg PO BID 09/17/22 09/17/22 09/17/22 History release Allergies Allergy/AdvReac Type Severity Reaction Status Date / Time doxycycline Allergy Severe trouble Verified 09/19/22 09:15 breathing atorvastatin [From Lipitor] Allergy pain Verified 09/19/22 09:15 Penicillins Allergy hives Verified 09/19/22 09:15 Sulfa (Sulfonamide Allergy rash Verified 09/19/22 09:15 Antibiotics) PFSH Acute PFSH: Medical History CAD (coronary artery disease) COPD (chronic obstructive pulmonary disease) Depression Hx-TIA (transient ischemic attack) Hyperlipidemia Hypertension Mucopurulent chronic bronchitis Primary osteoarthritis of left knee Surgical History H/O hysterectomy with oophorectomy History of appendectomy History of hip replacement left Hx of colectomy 4 yrs ago Hx of colonoscopy with polypectomy Hx of right coronary artery stent placement Stented coronary artery 11/17 Family History Brother CAD (coronary artery disease) Chronic kidney disease (CKD) Diabetes Hypertension Lung disease Stroke Family/Other CAD (coronary artery disease) Hypertension Lung disease Stroke Mother Cancer Hypertension Sister Cancer CAD (coronary artery disease) Dementia Hypertension Stroke Daughter Diabetes Sister No problems noted. Father Hypertension Lung disease Stroke Social History Smoking and tobacco status: never smoked Second hand smoke exposure: Yes Alcohol intake: never Substance/Drug Use: never Adopted: No Lives independently: Yes Household members: none Housing: House Current occupational status: unemployed Vitals/I&O/Wt Last Vital Signs Temp 97.5 F L 09/19/22 09:26 Pulse 83 09/19/22 09:26 Resp 17 09/19/22 09:26 BP 143/77 09/19/22 09:26 Pulse Ox 96 09/19/22 09:26 O2 Del Method Room Air 09/19/22 09:26 A&P Assessment and plan (1) GERD (gastroesophageal reflux disease): (2) Iron deficiency anemia: Plan EGD and colonoscopy Attestations Medical Necessity Statement*: Home Coding Level of Care Code Acute Code for Chg Fwd Diagnoses GERD (gastroesophageal reflux disease) K21.9 Iron deficiency anemia D50.9
[2022-09-19 12:08] VITALS: BP 106/56; PULSE 80; RESP 16; TEMP 36.1; O2SAT 96
[2022-09-19 12:23] VITALS: BP 131/70; PULSE 73; RESP 18; O2SAT 92
--- NOTE | 2022-09-19 13:59 | ANE.PACU2 ---
Inpatient post-anesthesia follow up: Airway intact: Yes Vital signs: Temperature 97.0 F Pulse Rate 73 Respiratory Rate 18 Blood Pressure 131/70 Pulse Oximetry 92 Oxygen Delivery Me thod Room Air Oxygen Flow Rate 4 Fraction of Inspir ed Oxygen Hydration adequate: Yes Nausea and vomiting: No Pain level: 2 Mental status: Baseline
== END 2022-09-19 12:39 | disposition home or self-care (01) ==
PROVIDERS: PCP Nurse Practitioner Family; Visit Provider Surgery
PROC: 0DJ08ZZ Inspection of Upper Intestinal Tract, Via Natural or Artificial Opening Endoscopic (ICD-10-PCS; CPT 43235; principal; 2022-09-19 10:00)
PROC: 0DJD8ZZ Inspection of Lower Intestinal Tract, Via Natural or Artificial Opening Endoscopic (ICD-10-PCS; CPT 45378; 2022-09-19 10:00)
DX: D50.9 Iron deficiency anemia, unspecified (principal); K21.9 Gastro-esophageal reflux disease without esophagitis; B96.81 Helicobacter pylori [H. pylori] as the cause of diseases classified elsewhere; J44.9 Chronic obstructive pulmonary disease, unspecified; I25.10 Atherosclerotic heart disease of native coronary artery without angina pectoris; I25.2 Old myocardial infarction; I10 Essential (primary) hypertension; E78.5 Hyperlipidemia, unspecified; Z79.82 Long term (current) use of aspirin; Z86.73 Personal history of transient ischemic attack (TIA), and cerebral infarction without residual deficits; Z88.0 Allergy status to penicillin; Z88.2 Allergy status to sulfonamides; Z77.22 Contact with and (suspected) exposure to environmental tobacco smoke (acute) (chronic)
CPT/HCPCS: 36416; 43239; 45378; 82962; 88305; 88342; J2704; J7030

== ENCOUNTER → 2022-10-09 15:59 | Outpatient (BNVA) | payer MEDICARE, OTHER, SELFPAY | PROVIDERS: PCP Nurse Practitioner Family; Visit Provider Surgery | DX: Z09 Encounter for follow-up examination after completed treatment for conditions other than malignant neoplasm (principal); A04.8 Other specified bacterial intestinal infections | CPT/HCPCS: 99213 ==

== ENCOUNTER → 2022-11-28 13:31 | Outpatient (BNVA) | payer MEDICARE, OTHER, SELFPAY | PROVIDERS: PCP Nurse Practitioner Family; Visit Provider Nurse Practitioner Family | DX: N39.0 Urinary tract infection, site not specified (principal) | CPT/HCPCS: 81000 ==

== ENCOUNTER 2023-01-31 09:34 | Outpatient (CLI) | payer MEDICARE, OTHER, SELFPAY ==
--- NOTE | 2023-01-31 09:47 | CT_ITS ---
WS: [id number] CTA THORACIC TECHNIQUE: Contrast enhanced CTA of the thoracic aorta with coronal and sagittal reformatted images a nd maximum intensity projection (MIP) images. CLINICAL INFORMATION: Thoracic aortic aneurysm, without rupture, unspecified COMPARISON: CTA 08/07/2022 DLP: 583.[address] scans at [facility] use at least one of these dose optimization techniques: automated e xposure control; mA and/or kV adjustment per patient size (includes targeted exams where dose is matc hed to clinical indication); or iterative reconstruction. FINDINGS: Ascending thoracic aorta measures 3.5 cm unchanged. Slight aneurysmal lower thoracic and upper abdomi nal aorta measuring 3.9 x 2.6 cm unchanged. Proximal pulmonary arteries are normal. Coronary calcific ation. No mediastinal or hilar lymphadenopathy. No axillary lymphadenopathy. Celiac and SMA are paten t in the upper abdomen. Adrenal glands are normal. Splenic granulomas. Normal GE junction. Mild thora cic curve. Hypertrophic changes thoracic spine. Lungs are well aerated. No acute pulmonary infiltrates. Calcified granuloma RIGHT lower lobe. IMPRESSION: 1. Stable slightly aneurysmal lower thoracic and upper abdominal aorta measuring 3.6 x 2.9 CM. 2. No other significant interval changes.
[2023-01-31] MEDS: iohexol 350 mg/mL 500 mL Btl (per mL) IV (09:52)
[2023-01-31 10:46] LABS: Blood Urea Nitrogen 28 mg/dL (8-23)
== END 2023-01-31 09:35 | disposition home or self-care (01) ==
LOC: RAD 09:34
PROVIDERS: PCP Nurse Practitioner Family; Visit Provider Nurse Practitioner Family
DX: I71.20 Thoracic aortic aneurysm, without rupture, unspecified (principal)
CPT/HCPCS: 71275; 82565; 84520; 99214; Q9967

== ENCOUNTER → 2023-03-01 09:45 | Outpatient (BNVA) | payer MEDICARE, OTHER, SELFPAY | PROVIDERS: PCP Nurse Practitioner Family; Visit Provider Internal Medicine Cardiovascular Disease | DX: I25.10 Atherosclerotic heart disease of native coronary artery without angina pectoris (principal); M79.606 Pain in leg, unspecified; E78.2 Mixed hyperlipidemia; I10 Essential (primary) hypertension; Z86.73 Personal history of transient ischemic attack (TIA), and cerebral infarction without residual deficits | CPT/HCPCS: 99214 ==

== ENCOUNTER 2023-03-05 13:57 | Outpatient (CLI) | payer MEDICARE, OTHER, SELFPAY ==
--- NOTE | 2023-03-05 14:30 | USCV_ITS ---
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 Resting TBI of 0.61 on the right side and 1.03 on the left side CONCLUSIONS 1. Normal resting HUMBERTO with a slightly diminished resting TBI on the right side, suggestive of mild peripheral artery disease, possibly involving the distal results. 2. Normal resting HUMBERTO and TBI on the left side, suggesting no significant arterial obstruction. Dr Porter Matthew MD [facility] (Electronically Signed) Final Date: 06 March 2023 10:02 S
== END 2023-03-05 13:58 | disposition home or self-care (01) ==
LOC: RAD 13:57
PROVIDERS: PCP Nurse Practitioner Family; Visit Provider Internal Medicine Cardiovascular Disease
DX: I25.10 Atherosclerotic heart disease of native coronary artery without angina pectoris (principal); M79.606 Pain in leg, unspecified; I10 Essential (primary) hypertension; E78.2 Mixed hyperlipidemia; Z86.73 Personal history of transient ischemic attack (TIA), and cerebral infarction without residual deficits
CPT/HCPCS: 17000; 93922; 99214

== ENCOUNTER → 2023-04-02 11:29 | Outpatient (BNVA) | payer MEDICARE, OTHER, SELFPAY | PROVIDERS: PCP Nurse Practitioner Family; Visit Provider Nurse Practitioner Family | DX: I10 Essential (primary) hypertension (principal); E55.9 Vitamin D deficiency, unspecified | CPT/HCPCS: 80053; 80061; 81000; 82306; 85025 ==

== ENCOUNTER 2023-05-28 10:51 | Outpatient (CLI) | payer MEDICARE, MEDICAID, SELFPAY ==
[2023-05-28] MEDS: iohexol 350 mg/mL 500 mL Btl (per mL) IV (11:46)
--- NOTE | 2023-05-28 12:00 | CT_ITS ---
WS: [id number] CT ANGIOGRAPHY OF THE ABDOMINAL AORTA WITH RUNOFF TO THE ANKLES HISTORY: leg pain, decreased DP pulse right TECHNIQUE: Arterial injection is performed during imaging to evaluate the aorta and runoff vessels to the ankles. MIP and volume rendering imaging has also been performed. All images are reviewed. All C T scans at [facility] use at least one of these dose optimization techniques: automated exposu re control; mA and/or kV adjustment per patient size (includes targeted exams where dose is matched t o clinical indication); or iterative reconstruction. Contrast: Omnipaque 350; 100 mL IV. DLP: 1559.11 mGy.cm COMPARISON: No similar studies. Abnormal HUMBERTO. Abdominal aorta: Very good contrast opacification of the abdominal aorta. Soft plaque and calcified p laque. Surface of the plaque is irregular and partially ulcerated. Very minimal stenosis origin of th e celiac axis and SMA. Mild plaque renal arteries. No aneurysm. Bifurcation is normal. RIGHT lower extremity arterial system: Mild plaque in the RIGHT common, internal and external iliac a rteries. Normal femoral artery. Deep profunda and SFA are both widely patent. Normal popliteal artery . No aneurysm. Trifurcation is normal. Intermittent calcified plaque below the knee. Very small calib er and poorly opacified distal anterior tibial and peroneal arteries. Good runoff to the ankle via th e posterior tibial artery. LEFT lower extremity arterial system: Mild plaque scattered throughout the common, internal and exter nal iliac arteries. Femoral artery, deep profunda and SFA are normal. Popliteal artery is normal. Tib ioperoneal trunk is normal. Anterior and posterior tibial artery runoff to the ankle is sufficient. V selina small peroneal artery poorly visualized distally. Negative liver and gallbladder. No bile duct dilatation. No ascites or adenopathy. Mild cortical atro phy. No GI tract obstruction. Increased soft tissue in the cecum is probably a fecal bolus. There is no obstructive pattern. Prior LEFT hip arthroplasty. IMPRESSION: 1. Small caliber and poorly opacified distal RIGHT anterior tibial and peroneal arteries with limite d runoff to the ankle. Good runoff to the ankle via the posterior tibial artery. 2. Small LEFT peroneal artery runoff to the ankle. Otherwise the anterior and posterior tibial arter ies with adequate flow to the distal extremity. 3. Moderate amount of soft plaque within the aorta but there is no aneurysm and no stenosis. 4. No iliac or femoral artery stenosis.
== END 2023-05-28 10:52 | disposition home or self-care (01) ==
LOC: RAD 10:51
PROVIDERS: PCP Nurse Practitioner Family; Visit Provider Nurse Practitioner Family
DX: I73.9 Peripheral vascular disease, unspecified (principal); I70.0 Atherosclerosis of aorta
CPT/HCPCS: 75635; Q9967

== ENCOUNTER → 2023-06-19 09:18 | Outpatient (BNVA) | payer MEDICARE, MEDICAID, SELFPAY | PROVIDERS: PCP Nurse Practitioner Family; Visit Provider Nurse Practitioner Family | DX: I73.9 Peripheral vascular disease, unspecified (principal); I10 Essential (primary) hypertension | CPT/HCPCS: 99213 ==

== ENCOUNTER 2023-07-10 11:10 | Emergency (ER) | payer MEDICARE, MEDICAID, SELFPAY ==
--- NOTE | 2023-07-10 11:13 | XRR_ITS ---
PROCEDURE INFORMATION: Exam: XR Chest Exam date and time: 07/10/2023 11:31 AM Age: 82 years old Clinical indication: Cough TECHNIQUE: Imaging protocol: Radiologic exam of the chest. Views: 1 view. COMPARISON: CT angio chest [id number] 01/31/2023 10:49 AM FINDINGS: Lungs: Unremarkable. No consolidation. Pleural spaces: Unremarkable. No pleural effusion. No pneumothorax. Heart/Mediastinum: Unremarkable. No cardiomegaly. Bones/joints: Unremarkable. XR/XR chest 1V portable [id number] IMPRESSION: No acute findings.
[2023-07-10 11:19] VITALS: BP 142/79; PULSE 85; RESP 18; TEMP 37; O2SAT 95; BMI 28.3
[2023-07-10 11:54] VITALS: BP 144/77; PULSE 81; RESP 16; O2SAT 93
--- NOTE | 2023-07-10 11:57 | W.ED.FEVER ---
HPI - Fever General: Chief Complaint: Fever Stated Complaint: Fever / cough Time Seen by Provider: 07/10/23 11:28 Source: patient Mode of arrival: ambulatory Limitations: no limitations History of Present Illness: 82-year-old female states she has been having cough congestion along with low-grade fevers since Saturday. States she is also had just generalized bodyaches and headache she denies any vomiting diarrhea she denies any chest pain or abdominal pain. Denies any worse improved factors. PFSH ED PFSH: Medical History H. pylori infection Thoracic aortic aneurysm Anemia High risk medication use Anemia Vitamin D deficiency Anticoagulant long-term use Hx-TIA (transient ischemic attack) Primary osteoarthritis of left knee Hypertension Mucopurulent chronic bronchitis COPD (chronic obstructive pulmonary disease) Hyperlipidemia Depression CAD (coronary artery disease) Surgical History Hx of colonoscopy with polypectomy Hx of colectomy 4 yrs ago Hx of right coronary artery stent placement Stented coronary artery 11/17 History of hip replacement left H/O hysterectomy with oophorectomy History of appendectomy Family History Brother CAD (coronary artery disease) Chronic kidney disease (CKD) Diabetes Hypertension Lung disease Stroke Family/Other CAD (coronary artery disease) Hypertension Lung disease Stroke Mother Cancer Hypertension Sister Cancer CAD (coronary artery disease) Dementia Hypertension Stroke Daughter Diabetes Sister No problems noted. Father Hypertension Lung disease Stroke Social History Smoking and tobacco/nicotine status: never used tobacco/nicotine Second hand smoke exposure: Yes Alcohol intake: never Substance/Drug Use: never Adopted: No Lives independently: Yes Household members: none Housing: House Current occupational status: unemployed Course Vital Signs: Vital signs: Vital Signs Temperature 98.6 F 07/10/23 11:19 Pulse Rate 81 07/10/23 11:54 Respiratory Rate 16 07/10/23 11:54 Blood Pressure 144/77 07/10/23 11:54 Pulse Oximetry 93 07/10/23 11:54 Oxygen Delivery Me thod Room Air 07/10/23 11:54 MDM - Fever Medical Decision Making Patient presents for cough fever body aches she did test positive for influenza she is no signs of pneumonia she has been well-appearing here with no hypoxia she is stable for discharge we will place her on Tamiflu she is follow-up with her PCP and return if worsening. Medical Records I reviewed the patient's medical records. Lab Data I reviewed the patient's lab results. 07/10/23 12:17 07/10/23 12:17 Radiology Impressions Chest X-Ray 07/10/23 11:13 IMPRESSION: No acute findings. Laboratory Results WBC 4.52 10^3/uL (3.29-11.43) 07/10/23 12:17 RBC 3.59 10^6/uL (3.85-5.65) L 07/10/23 12:17 Hgb 11.20 g/dL (11.27-16.99) L 07/10/23 12:17 Hct 35.4 % (36-47) L 07/10/23 12:17 MCV 98.6 fl (85-98) H 07/10/23 12:17 MCH 31.2 pg (27-33) 07/10/23 12:17 MCHC 31.6 g/dL (30-55) 07/10/23 12:17 RDW 15.3 % (12.1-15.1) H 07/10/23 12:17 Plt Count 305 10^3/cmm (157-399) 07/10/23 12:17 MPV 10.2 fL (7.4-10.4) 07/10/23 12:17 Neut % (Auto) 69.3 % 07/10/23 12:17 Lymph % (Auto) 12.8 % 07/10/23 12:17 [place] % (Auto) 12.4 % 07/10/23 12:17 Eos % (Auto) 4.9 % 07/10/23 12:17 Baso % (Auto) 0.2 % 07/10/23 12:17 Neut # (Auto) 3.13 10^3/uL (1.8-7.7) 07/10/23 12:17 Lymph # (Auto) 0.6 10^3/uL (0.8-4.8) L 07/10/23 12:17 [place] # (Auto) 0.6 10^3/uL (0.2-0.9) 07/10/23 12:17 Eos # (Auto) 0.2 10^3/uL (0.0-0.8) 07/10/23 12:17 Baso # (Auto) 0.0 10^3/uL (0.0-0.1) 07/10/23 12:17 Nucleated RBC % (auto) 0 % 07/10/23 12:17 Nucleated RBCs # 0.0 /100WBC 07/10/23 12:17 Sodium 136 mmol/L (136-145) 07/10/23 12:17 Potassium 3.2 mmol/L (3.5-5.1) L 07/10/23 12:17 Chloride 101 mmol/L (98-107) 07/10/23 12:17 Carbon Dioxide 22 mmol/L (22-29) 07/10/23 12:17 Anion Gap 16.2 (5-19) 07/10/23 12:17 BUN 22 mg/dL (8-23) 07/10/23 12:17 Creatinine 1.6 mg/dL (0.5-0.9) H 07/10/23 12:17 GFR Calculation Not Reportable 07/10/23 12:17 Glucose 86 mg/dL (65-115) 07/10/23 12:17 Calculated Osmolality 285 mOsm/kg (285-295) 07/10/23 12:17 Calcium 9.1 mg/dL (8.5-10.5) 07/10/23 12:17 Influenza Type A Ag Positive (Negative) H 07/10/23 11:40 Influenza Type B Ag Negative (Negative) 07/10/23 11:40 SARS-CoV-2 Ag (Rapid) negative (Negative) 07/10/23 11:40 All radiology interpretation(s) finalized by discharge Discharge Plan Discharge Patient Disposition: Home Clinical Impression: Influenza Condition: Stable Prescriptions: New Tamiflu 75 mg capsule 75 mg PO BID 5 Days Qty: 10 0RF No Action nitroglycerin 0.4 mg tablet, sublingual 0.4 mg SUBLINGUAL Q5M PRN (Reason: chest pain) Qty: 30 3RF acetaminophen 325 mg tablet 325 mg PO QID PRN (Reason: Pain) allopurinol 100 mg tablet 100 mg PO DAILY citalopram 20 mg tablet See Rx Instructions .ROUTE .COMPLEX Qty: 180 1RF Dose Instruction: TAKE 1 TABLET BY MOUTH TWICE DAILY Rx Instructions: TAKE 1 TABLET BY MOUTH TWICE DAILY isosorbide mononitrate 60 mg tablet extended release 24 hr 30 mg PO BID Qty: 90 2RF Rx Instructions: 340b ezetimibe [Zetia] 10 mg tablet 10 mg PO DAILY Qty: 90 1RF clopidogrel 75 mg tablet See Rx Instructions .ROUTE .COMPLEX Qty: 90 0RF Dose Instruction: TAKE 1 TABLET BY MOUTH DAILY Rx Instructions: TAKE 1 TABLET BY MOUTH DAILY amlodipine 2.5 mg tablet See Rx Instructions .ROUTE .COMPLEX Qty: 90 0RF Dose Instruction: TAKE 1 TABLET BY MOUTH EVERY MORNING Rx Instructions: TAKE 1 TABLET BY MOUTH EVERY MORNING pantoprazole 40 mg tablet,delayed release (DR/EC) See Rx Instructions .ROUTE .COMPLEX Qty: 180 0RF Dose Instruction: TAKE 1 TABLET BY MOUTH TWICE DAILY Rx Instructions: TAKE 1 TABLET BY MOUTH TWICE DAILY cilostazol 50 mg tablet 50 mg PO BID Qty: 180 2RF hydrochlorothiazide 25 mg tablet See Rx Instructions .ROUTE .COMPLEX Qty: 90 0RF Dose Instruction: TAKE 1 TABLET BY MOUTH EVERY MORNING Rx Instructions: TAKE 1 TABLET BY MOUTH EVERY MORNING gemfibrozil 600 mg tablet See Rx Instructions .ROUTE .COMPLEX Qty: 180 0RF Dose Instruction: TAKE 1 TABLET BY MOUTH TWICE DAILY Rx Instructions: TAKE 1 TABLET BY MOUTH TWICE DAILY cholecalciferol (vitamin D3) 25 mcg (1,000 unit) capsule 1,000 unit PO QAM cyanocobalamin (vitamin B-12) [Vitamin B-12] 1,000 mcg Tablet 1,000 mcg PO DAILY Qty: 0 aspirin [Adult Low Dose Aspirin] 81 mg tablet,delayed release (DR/EC) 162 mg PO BEDTIME Hold Instructions: Resume on 09/21/22. benzonatate 100 mg capsule 100 mg PO Q6H PRN (Reason: cough) Qty: 20 0RF Repatha SureClick 140 mg/mL pen injector 140 mg SUBCUT Q14D albuterol sulfate 90 mcg/actuation HFA aerosol inhaler 2 inh inhalation Q4H PRN (Reason: shortness of breath or wheezing) Qty: 8.5 0RF IRON HP 27MG TABLETS 27 mg PO DAILY Rx Instructions: TAKE 1 TABLET BY MOUTH DAILY Discharge Orders: Discharge ED (Routine); Ordered 07/10/23 Ordered By: Emmanuel Griffin Referrals: Abbey Oh FNP [Primary Care Provider] - Discharge Diet: Advance as tolerated Discharge Activity: Resume usual activity Patient Instructions: Influenza (ED) Coding Level of Care Code ED Hand Clerical Verifier for Rajat [place]
[2023-07-10 12:23] LABS: Influenza A by IFA Positive (Negative); Influenza B by IFA Negative (Negative)
[2023-07-10 12:26] LABS: Basophils % 0.2 %; Eosinophils # 0.2 10^3/uL (0.0-0.8); Eosinophils % 4.9 %; Hematocrit 35.4 % (36-47); Lymphocytes # 0.6 10^3/uL (0.8-4.8); Lymphocytes % 12.8 %; Mean Corpuscular HGB Conc 31.6 g/dL (30-55); Mean Corpuscular Hemoglobin 31.2 pg (27-33); Mean Corpuscular Volume 98.6 fl (85-98); Mean Platelet Volume 10.2 fL (7.4-10.4); Monocytes # 0.6 10^3/uL (0.2-0.9); Monocytes % 12.4 %; Neutrophils # 3.13 10^3/uL (1.8-7.7); Neutrophils % 69.3 %; Nucleated Red Blood Cells % 0 %; Platelet Count 305 10^3/cmm (157-399); Red Blood Count 3.59 10^6/uL (3.85-5.65); Red Cell Distribution Width 15.3 % (12.1-15.1); White Blood Count 4.52 10^3/uL (3.29-11.43)
[2023-07-10] MEDS: ketorolac 30 mg/mL INJ 15 MG IVP (12:31)
[2023-07-10 12:34] LABS: SARS Covid-2 Antigen negative (Negative)
[2023-07-10 12:52] LABS: Blood Urea Nitrogen 22 mg/dL (8-23); Calcium 9.1 mg/dL (8.5-10.5); Carbon Dioxide 22 mmol/L (22-29); Creatinine Clr Calc Pharmacy 24.4701; Glucose 86 mg/dL (65-115)
[2023-07-10 13:00] LABS: Anion Gap 16.2 (5-19); Chloride 101 mmol/L (98-107); Osmolality Calculated 285 mOsm/kg (285-295); Potassium 3.2 mmol/L (3.5-5.1); Sodium 136 mmol/L (136-145)
[2023-07-10 13:20] VITALS: BP 153/77; PULSE 74; RESP 16; O2SAT 95
== END 2023-07-10 13:20 | disposition home or self-care (01) ==
PROVIDERS: Emergency Provider Emergency Medicine; PCP Nurse Practitioner Family
DX: J11.1 Influenza due to unidentified influenza virus with other respiratory manifestations (principal); Z79.02 Long term (current) use of antithrombotics/antiplatelets; Z11.52 Encounter for screening for COVID-19; Z77.22 Contact with and (suspected) exposure to environmental tobacco smoke (acute) (chronic); Z86.73 Personal history of transient ischemic attack (TIA), and cerebral infarction without residual deficits; I10 Essential (primary) hypertension; J44.9 Chronic obstructive pulmonary disease, unspecified; E78.5 Hyperlipidemia, unspecified; I25.10 Atherosclerotic heart disease of native coronary artery without angina pectoris
CPT/HCPCS: 71045; 80048; 85025; 87426; 87804; 96374; 99284; J1885

== ENCOUNTER 2023-07-20 11:58 | Emergency (ER) | payer MEDICARE, MEDICAID, SELFPAY ==
[2023-07-20 12:03] VITALS: BP 126/80; PULSE 75; RESP 16; TEMP 36.6; O2SAT 99
--- NOTE | 2023-07-20 12:09 | ECG_ITS ---
[facility] Test Date: 2023-07-20 Pat Name: Donya Carpio Department: Room: Gender: Female Consumer Lender: : 1940 Requested By: Emmanuel Griffin Order Number: [id number] Linda MD: Carlos Erazo M.D. Measurements Intervals [place] Rate: 67 P: 60 MD: 177 QRS: 31 QRSD: 89 T: 47 QT: 412 QTc: 438 Interpretive Statements SINUS RHYTHM MODERATE ST DEPRESSION [0.05+ mV ST DEPRESSION] Compared to ECG 08/07/2022 13:35:47 ST (T wave) deviation now present Myocardial infarct finding no longer present Electronically Signed On 07-21-2023 8:10:14 CDT by Carlos Erazo M.D. [id number]
--- NOTE | 2023-07-20 12:09 | XRR_ITS ---
PROCEDURE INFORMATION: Exam: XR Chest Exam date and time: 07/20/2023 1:04 PM Age: 82 years old Clinical indication: Patient HX: Cough; Weakness TECHNIQUE: Imaging protocol: Radiologic exam of the chest. Views: 1 view. COMPARISON: CR XR chest 1V portable [id number] 07/10/2023 11:31 AM FINDINGS: Lungs: Unremarkable. No consolidation. Pleural spaces: Unremarkable. No pleural effusion. No pneumothorax. Heart/Mediastinum: Cardiac silhouette appears borderline enlarged on this portable chest. Bones/joints: Unremarkable. XR/XR chest 1V portable [id number] IMPRESSION: Borderline cardiomegaly otherwise negative chest.
[2023-07-20 12:29] LABS: Basophils % 0.3 %; Eosinophils # 0.3 10^3/uL (0.0-0.8); Eosinophils % 4.1 %; Hematocrit 35.2 % (36-47); Lymphocytes # 2.5 10^3/uL (0.8-4.8); Mean Corpuscular HGB Conc 32.4 g/dL (30-55); Mean Corpuscular Hemoglobin 30.6 pg (27-33); Mean Corpuscular Volume 94.4 fl (85-98); Mean Platelet Volume 9.4 fL (7.4-10.4); Monocytes # 0.5 10^3/uL (0.2-0.9); Monocytes % 7.2 %; Neutrophils # 3.43 10^3/uL (1.8-7.7); Neutrophils % 50.2 %; Nucleated Red Blood Cells % 0 %; Platelet Count 444 10^3/cmm (157-399); Red Blood Count 3.73 10^6/uL (3.85-5.65); Red Cell Distribution Width 15.8 % (12.1-15.1); White Blood Count 6.82 10^3/uL (3.29-11.43)
--- NOTE | 2023-07-20 12:29 | ED_ITS ---
HPI - Weakness 2 General: Chief complaint: Weakness Stated complaint: Weakness, Cough Time Seen by Provider: 07/20/23 12:08 Source: patient Mode of arrival: ambulatory Limitations: no limitations History of Present Illness: 82-year-old female states she was diagno sed with influenza 3 weeks ago. States she has been having persistent cough since then states she been coughing so much she is just feeling weak she denies any fever has had some mild dyspnea denies any worsening improving factors. Associated symptoms: Denies chest pain, chills, fever(s), headache(s), nausea or vomiting Review of Systems 2 Const: Reports: fatigue and malaise; Denies: fever(s), chills or body aches ENMT: Denies: throat pain or dental pain Card: Denies: chest pain Resp: Reports: non-productive cough; Denies: dyspnea GI: Denies: abdominal pain, nausea, vomiting or diarrhea Musc: Denies: neck pain or back pain Skin/Breast: Denies: rash Neuro: Denies: headache(s) PFSH ED 2 PFSH: Medical History H. pylori infection Thoracic aortic aneurysm Anemia High risk medication use Anemia Vitamin D deficiency Anticoagulant long-term use Hx-TIA (transient ischemic attack) Primary osteoarthritis of left knee Hypertension Mucopurulent chronic bronchitis COPD (chronic obstructive pulmonary disease) Hyperlipidemia Depression CAD (coronary artery disease) Surgical History Hx of colonoscopy with polypectomy Hx of colectomy 4 yrs ago Hx of right coronary artery stent placement Stented coronary artery 11/17 History of hip replacement left H/O hysterectomy with oophorectomy History of appendectomy Family History Brother CAD (coronary artery disease) Chronic kidney disease (CKD) Diabetes Hypertension Lung disease Stroke Family/Other CAD (coronary artery disease) Hypertension Lung disease Stroke Mother Cancer Hypertension Sister Cancer CAD (coronary artery disease) Dementia Hypertension Stroke Daughter Diabetes Sister No problems noted. Father Hypertension Lung disease Stroke Social History Smoking and tobacco/nicotine status: never used tobacco/nicotine Second hand smoke exposure: Yes Alcohol intake: never Substance/Drug Use: never Adopted: No Lives independently: Yes Household members: none Housing: House Current occupational status: unemployed Physical Exam 2 Const: COMMON NORMALS: no acute distress, patient oriented x3 and healthy appearing HENMT: COMMON NORMALS: normocephalic and atraumatic HEAD & SCALP: n ormocephalic and atraumatic Neck/C-Spine: COMMON NORMALS: full ROM and supple Chest: COMMONS NORMALS: normal inspection of the chest Resp: COMMON NORMALS: normal respiratory effort Cardio: COMMON NORMALS: regular rate, regular rhythm and No murmurs present (Cardio) RATE: regular rate RHYTHM: regular rhythm Extremity: COMMON NORMALS: normal to inspection and full ROM Neuro: COMMON NORMALS: patient oriented x3, moves all extremities and no focal motor deficits Psych: COMMON NORMALS: mental status grossly normal, Normal thought process present and cooperative THOUGHT PROCESS: Normal thought process present Skin: COMMON NORMALS: no rashes or lesions noted and no wounds GENERAL SKIN EXAM: no rashes or lesions noted Course 2 Vital Signs: Vital signs: Vital Signs Temperature 97.9 F 07/20/23 12:03 Pulse Rate 76 07/20/23 12:46 Respiratory Rate 16 07/20/23 12:45 Blood Pressure 126/80 07/20/23 12:03 Pulse Oximetry 97 07/20/23 12:45 Oxygen Delivery Me thod Room Air 07/20/23 12:45 MDM - Weakness Medical Decision Making Patient presents here with upper respiratory infection with cough x-ray here shows no pneumonia blood works normal she stable for discharge we will place her on albuterol she return if worsening. Medical Records I reviewed the patient's medical records. Lab Data I reviewed the patient's lab results. 07/20/23 12:24 07/20/23 12:24 Radiology Impressions Chest X-Ray 07/20/23 12:09 IMPRESSION: Borderline cardiomegaly otherwise negative chest. Laboratory Results WBC 6.82 10^3/uL (3.29-11.43) 07/20/23 12:24 RBC 3.73 10^6/uL (3.85-5.65) L 07/20/23 12:24 Hgb 11.40 g/dL (11.27-16.99) 07/20/23 12:24 Hct 35.2 % (36-47) L 07/20/23 12:24 MCV 94.4 fl (85-98) 07/20/23 12:24 MCH 30.6 pg (27-33) 07/20/23 12:24 MCHC 32.4 g/dL (30-55) 07/20/23 12:24 RDW 15.8 % (12.1-15.1) H 07/20/23 12:24 Plt Count 444 10^3/cmm (157-399) H 07/20/23 12:24 MPV 9.4 fL (7.4-10.4) 07/20/23 12:24 Neut % (Auto) 50.2 % 07/20/23 12:24 Lymph % (Auto) 37.0 % 07/20/23 12:24 [place] % (Auto) 7.2 % 07/20/23 12:24 Eos % (Auto) 4.1 % 07/20/23 12:24 Baso % (Auto) 0.3 % 07/20/23 12:24 Neut # (Auto) 3.43 10^3/uL (1.8-7.7) 07/20/23 12:24 Lymph # (Auto) 2.5 10^3/uL (0.8-4.8) 07/20/23 12:24 [place] # (Auto) 0.5 10^3/uL (0.2-0.9) 07/20/23 12:24 Eos # (Auto) 0.3 10^3/uL (0.0-0.8) 07/20/23 12:24 Baso # (Auto) 0.0 10^3/uL (0.0-0.1) 07/20/23 12:24 Nucleated RBC % (auto) 0 % 07/20/23 12:24 Nucleated RBCs # 0.0 /100WBC 07/20/23 12:24 Sodium 141 mmol/L (136-145) 07/20/23 12:24 Potassium 3.2 mmol/L (3.5-5.1) L 07/20/23 12:24 Chloride 103 mmol/L (98-107) 07/20/23 12:24 Carbon Dioxide 24 mmol/L (22-29) 07/20/23 12:24 Anion Gap 17.2 (5-19) 07/20/23 12:24 BUN 24 mg/dL (8-23) H 07/20/23 12:24 Creatinine 1.4 mg/dL (0.5-0.9) H 07/20/23 12:24 GFR Calculation Not Reportable 07/20/23 12:24 Glucose 109 mg/dL (65-115) 07/20/23 12:24 Calculated Osmolality 297 mOsm/kg (285-295) H 07/20/23 12:24 Calcium 10.1 mg/dL (8.5-10.5) 07/20/23 12:24 Total Bilirubin 0.4 mg/dL (0.15-1.2) 07/20/23 12:24 AST 14 U/L (0-32) 07/20/23 12:24 ALT 8 U/L (0-33) 07/20/23 12:24 Alkaline Phosphatase 106 U/L (35-105) H 07/20/23 12:24 Total Protein 7.6 g/dL (6.6-8.7) 07/20/23 12:24 Albumin 4.5 g/dL (3.5-5.2) 07/20/23 12:24 Globulin 3.1 g/dL (1.3-4.6) 07/20/23 12:24 All radiology interpretation(s) finalized by discharge EKG Data EKG 1: I personally reviewed and interpreted this EKG as follows: EKG interpretation date: 07/20/23 EKG interpretation time: 12:20 Interpretation: nsr hr [address] or t wave abnormalities qrs 89 qtc 428 Discharge Plan Discharge Patient Disposition: Home Clinical Impression: Upper respiratory infection Condition: Stable Prescriptions: New albuterol sulfate 90 mcg/actuation HFA aerosol inhaler 2 inh INHALATION Q6H PRN (Reason: shortness of breath or wheezing) Qty: 8 0RF No Action nitroglycerin 0.4 mg tablet, sublingual 0.4 mg SUBLINGUAL Q5M PRN (Reason: chest pain) Qty: 30 3RF acetaminophen 325 mg tablet 325 mg PO QID PRN (Reason: Pain) allopurinol 100 mg tablet 100 mg PO DAILY benzonatate 100 mg capsule 100 mg PO Q6H PRN (Reason: cough) Qty: 20 0RF isosorbide mononitrate 60 mg tablet extended release 24 hr 30 mg PO BID Qty: 90 2RF Rx Instructions: 340b ezetimibe [Zetia] 10 mg tablet 10 mg PO DAILY Qty: 90 1RF cilostazol 50 mg tablet 50 mg PO BID Qty: 180 2RF cholecalciferol (vitamin D3) 25 mcg (1,000 unit) capsule 1,000 unit PO QAM cyanocobalamin (vitamin B-12) [Vitamin B-12] 1,000 mcg Tablet 1,000 mcg PO DAILY Qty: 0 aspirin [Adult Low Dose Aspirin] 81 mg tablet,delayed release (DR/EC) 162 mg PO BEDTIME Hold Instructions: Resume on 09/21/22. Repatha SureClick 140 mg/mL pen injector 140 mg SUBCUT Q14D ferrous sulfate 27 mg iron Tablet 27 mg PO DAILY amlodipine 2.5 mg tablet 2.5 mg PO QAM clopidogrel 75 mg tablet 75 mg PO DAILY citalopram 20 mg tablet 20 mg PO BID gemfibrozil 600 mg tablet 600 mg PO BID pantoprazole 40 mg tablet,delayed release (DR/EC) 40 mg PO BID hydrochlorothiazide 25 mg tablet 75 mg PO QAM Discharge Orders: Discharge ED (Routine); Ordered 07/20/23 Ordered By: Emmanuel Griffin Referrals: Abbey Oh FNP [Primary Care Provider] - Discharge Diet: Advance as tolerated Discharge Activity: Resume usual activity Patient Instructions: Upper Respiratory Infection (ED) Coding Level of Care Code ED Barrel Lapper for [facility] [place]
[2023-07-20] MEDS: dexamethasone 10 mg/mL INJ IVP (12:31)
[2023-07-20] MEDS: sodium chloride 0.9% 500 ML IV (12:32)
[2023-07-20] MEDS: ipratropium-albuterol 3 mL Neb INHALATION (12:43)
[2023-07-20 12:45] VITALS: PULSE 78; RESP 16; O2SAT 97
[2023-07-20 12:45] LABS: Alanine Aminotransferase 8 U/L (0-33); Albumin Level 4.5 g/dL (3.5-5.2); Alkaline Phosphatase 106 U/L (35-105); Anion Gap 17.2 (5-19); Aspartate Amino Transferase 14 U/L (0-32); Blood Urea Nitrogen 24 mg/dL (8-23); Calcium 10.1 mg/dL (8.5-10.5); Carbon Dioxide 24 mmol/L (22-29); Chloride 103 mmol/L (98-107); Globulin 3.1 g/dL (1.3-4.6); Glucose 109 mg/dL (65-115); Osmolality Calculated 297 mOsm/kg (285-295); Potassium 3.2 mmol/L (3.5-5.1); Sodium 141 mmol/L (136-145); Total Bilirubin 0.4 mg/dL (0.15-1.2); Total Protein 7.6 g/dL (6.6-8.7)
[2023-07-20 12:46] VITALS: PULSE 76
[2023-07-20 12:58] LABS: Creatinine Clr Calc Pharmacy 28.2275
[2023-07-20 14:33] VITALS: BP 127/69; PULSE 87; RESP 16; O2SAT 96
[2023-07-20 14:49] VITALS: BP 137/69; PULSE 92; RESP 16; TEMP 36.6; O2SAT 97
== END 2023-07-20 14:50 | disposition home or self-care (01) ==
PROVIDERS: Emergency Provider Emergency Medicine; PCP Nurse Practitioner Family
DX: J06.9 Acute upper respiratory infection, unspecified (principal); Z79.02 Long term (current) use of antithrombotics/antiplatelets; Z79.82 Long term (current) use of aspirin; Z77.22 Contact with and (suspected) exposure to environmental tobacco smoke (acute) (chronic); Z86.73 Personal history of transient ischemic attack (TIA), and cerebral infarction without residual deficits; I10 Essential (primary) hypertension; J44.9 Chronic obstructive pulmonary disease, unspecified; E78.5 Hyperlipidemia, unspecified; I25.10 Atherosclerotic heart disease of native coronary artery without angina pectoris
CPT/HCPCS: 71045; 80053; 85025; 93005; 94640; 96361; 96374; 99285; J1100; J7040

== ENCOUNTER → 2023-09-02 11:05 | Outpatient (BNVA) | payer MEDICARE, MEDICAID, SELFPAY | PROVIDERS: PCP Nurse Practitioner Family; Visit Provider Internal Medicine Cardiovascular Disease | DX: R06.02 Shortness of breath (principal) | CPT/HCPCS: 36415; 80048; 83880; 99215 ==

== ENCOUNTER → 2023-09-04 07:49 | Outpatient (BNVA) | payer MEDICARE, MEDICAID, SELFPAY | PROVIDERS: PCP Nurse Practitioner Family; Visit Provider Nurse Practitioner Family | DX: L57.8 Other skin changes due to chronic exposure to nonionizing radiation (principal); D18.01 Hemangioma of skin and subcutaneous tissue; L81.4 Other melanin hyperpigmentation; L73.8 Other specified follicular disorders; L56.8 Other specified acute skin changes due to ultraviolet radiation | CPT/HCPCS: 17000; 99214 ==

== ENCOUNTER 2023-10-04 07:23 | Outpatient (CLI) | payer MEDICARE, MEDICAID, SELFPAY ==
[2023-10-04 07:36] VITALS: BMI 29.9
--- NOTE | 2023-10-04 07:37 | NMCV_ITS ---
NM lisa perf SPECT r/s* [id number] Donya Carpio Age: 83 Gender: F : 1940 Exam Date: 10/04/2023 08:08 Ordering Phys: Porter Matthew MD ([email or web address]) Technologist: LORI Patterson Exam Location: [facility] [place] Indications: CP STRESS TEST Please see separate stress test report in [facility] for full findings IMAGE PROTOCOL Rest/Stress 1 Lexiscan Day Radiopharmaceutical Dose (mCi) Administration Site Administered by Rest: Tc-99m 10.6 IV LORI Burton Sestamibi Stress:Tc-99m 32.6 IV LORI Patterson Sestamilorne Rest: 04-Oct-2023 60 Discovery 630 Stress: 04-Oct-2023 30 Discovery 630 Images obtained in supine and prone position.0.4mg Lexiscan. SPECT RESULTS Technical Quality: Good Raw Data Analysis: Subdiaphragmatic activity Image Corrections: No attenuation or motion correction applied Summed Stress Score: 2 Summed Rest Score: 0 Summed Difference Score: 2 PERFUSION FINDINGS There is a small sized, inconsistent, partially fixed perfusion defect noted in inferolateral wall. 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 FUNCTIONAL RESULTS (calculated via Gated SPECT) Stress Image LV EF (%): 89 Stress EDV (mL):64 TID: 0.97 Stress ESV (mL):7 FUNCTIONAL FINDINGS: There is normal left ventricular systolic function. IMPRESSIONS 1. Attenuation artifact versus small area of prior infarct with minimal lisa- infarct ischemia in left circumflex artery territory. 2. LV systolic function is normal Randy Spivey MD (Electronically Signed) Final Date: 06 October 2023 19:45 S
[2023-10-04] MEDS: regadenoson 0.4 Mg/5 ml Syringe IVP (09:00)
[2023-10-04 09:10] VITALS: BP 144/64; PULSE 72
== END 2023-10-04 07:24 | disposition home or self-care (01) ==
LOC: CDL 07:23
PROVIDERS: PCP Nurse Practitioner Family; Visit Provider Internal Medicine Cardiovascular Disease
DX: R07.9 Chest pain, unspecified (principal); R06.02 Shortness of breath
CPT/HCPCS: 36415; 78452; 93017; 96374; A9500; J2785

== ENCOUNTER → 2023-10-07 10:04 | Outpatient (BNVA) | payer MEDICARE, MEDICAID, SELFPAY | PROVIDERS: PCP Nurse Practitioner Family; Visit Provider Internal Medicine Cardiovascular Disease | DX: I25.10 Atherosclerotic heart disease of native coronary artery without angina pectoris (principal); E78.2 Mixed hyperlipidemia; I10 Essential (primary) hypertension; I73.9 Peripheral vascular disease, unspecified; N28.9 Disorder of kidney and ureter, unspecified; Z86.73 Personal history of transient ischemic attack (TIA), and cerebral infarction without residual deficits | CPT/HCPCS: 99214 ==

== ENCOUNTER → 2023-10-16 14:33 | Outpatient (BNVA) | payer MEDICARE, MEDICAID, SELFPAY | PROVIDERS: PCP Nurse Practitioner Family; Visit Provider Nurse Practitioner Family | DX: N30.00 Acute cystitis without hematuria (principal) | CPT/HCPCS: 81000 ==

== ENCOUNTER → 2024-01-14 10:42 | Outpatient (BNVA) | payer MEDICARE, MEDICAID, SELFPAY | PROVIDERS: PCP Nurse Practitioner Family; Visit Provider Nurse Practitioner Family | DX: I10 Essential (primary) hypertension (principal); R53.83 Other fatigue | CPT/HCPCS: 80053; 80061; 85025 ==

== ENCOUNTER → 2024-02-20 11:23 | Outpatient (BNVA) | payer MEDICARE, MEDICAID, SELFPAY | PROVIDERS: PCP Nurse Practitioner Family; Visit Provider Nurse Practitioner Family | DX: D50.8 Other iron deficiency anemias (principal) | CPT/HCPCS: 83550; 85025 ==

== ENCOUNTER → 2024-04-28 09:52 | Outpatient (BNVA) | payer MEDICARE, MEDICAID, SELFPAY | PROVIDERS: PCP Nurse Practitioner Family; Visit Provider Nurse Practitioner Family | DX: I73.9 Peripheral vascular disease, unspecified (principal); I10 Essential (primary) hypertension | CPT/HCPCS: 99213 ==

== ENCOUNTER → 2024-06-16 08:33 | Outpatient (BNVA) | payer MEDICARE, MEDICAID, SELFPAY | PROVIDERS: PCP Nurse Practitioner Family; Visit Provider Nurse Practitioner Family | DX: N18.9 Chronic kidney disease, unspecified (principal); E55.9 Vitamin D deficiency, unspecified; D50.8 Other iron deficiency anemias | CPT/HCPCS: 80053; 81003; 82043; 82306; 82310; 82570; 83550; 83735; 83970; 84100; 84156; 84550; 85007; 85027 ==

== ENCOUNTER → 2024-07-27 08:50 | Outpatient (BNVA) | payer MEDICARE, MEDICAID, SELFPAY | PROVIDERS: PCP Nurse Practitioner Family; Visit Provider Nurse Practitioner Family | DX: D50.8 Other iron deficiency anemias (principal); N18.9 Chronic kidney disease, unspecified | CPT/HCPCS: 83540 ==

== ENCOUNTER 2024-09-29 05:00 | Outpatient (RCR) | payer MEDICARE, MEDICAID, SELFPAY | END 2024-10-29 23:59 | disposition home or self-care (01) | LOC: WPT 05:00 | PROVIDERS: PCP Nurse Practitioner Family; Visit Provider Orthopaedic Surgery | DX: M70.61 Trochanteric bursitis, right hip (principal) | CPT/HCPCS: 97110; 97112; 97161; 97530 ==

== ENCOUNTER → 2024-10-14 11:29 | Outpatient (BNVA) | payer MEDICARE, MEDICAID, SELFPAY | PROVIDERS: PCP Nurse Practitioner Family; Visit Provider Nurse Practitioner Family | DX: N39.0 Urinary tract infection, site not specified (principal) | CPT/HCPCS: 81000; 87086 ==

== ENCOUNTER 2024-10-30 05:00 | Outpatient (RCR) | payer MEDICARE, MEDICAID, SELFPAY | END 2024-11-29 23:59 | disposition home or self-care (01) | LOC: WPT 05:00 | PROVIDERS: PCP Nurse Practitioner Family; Visit Provider Orthopaedic Surgery | DX: M70.61 Trochanteric bursitis, right hip (principal) | CPT/HCPCS: 97110; 97112; 97530 ==

== ENCOUNTER → 2024-11-04 15:06 | Outpatient (BNVA) | payer MEDICARE, MEDICAID, SELFPAY | PROVIDERS: PCP Nurse Practitioner Family; Visit Provider Internal Medicine Cardiovascular Disease | DX: I25.10 Atherosclerotic heart disease of native coronary artery without angina pectoris (principal); E78.5 Hyperlipidemia, unspecified; I10 Essential (primary) hypertension; I73.9 Peripheral vascular disease, unspecified; N28.9 Disorder of kidney and ureter, unspecified; Z79.02 Long term (current) use of antithrombotics/antiplatelets; Z95.5 Presence of coronary angioplasty implant and graft; Z86.73 Personal history of transient ischemic attack (TIA), and cerebral infarction without residual deficits | CPT/HCPCS: 99214 ==

== ENCOUNTER 2024-11-30 05:00 | Outpatient (RCR) | payer MEDICARE, MEDICAID, SELFPAY | END 2024-12-29 23:59 | disposition home or self-care (01) | LOC: WPT 05:00 | PROVIDERS: PCP Nurse Practitioner Family; Visit Provider Orthopaedic Surgery | DX: M70.61 Trochanteric bursitis, right hip (principal) | CPT/HCPCS: 97110; 97112; 97530 ==